=== PATIENT | male | born 1950 | race Caucasian/White ===

== ENCOUNTER → 2020-06-19 09:27 | Outpatient (BNVA) | payer MEDICARE, SELFPAY | PROVIDERS: PCP Internal Medicine; Visit Provider Internal Medicine | DX: I48.19 Other persistent atrial fibrillation (principal); Z51.81 Encounter for therapeutic drug level monitoring; Z79.01 Long term (current) use of anticoagulants | CPT/HCPCS: 85610 ==

== ENCOUNTER 2020-07-03 08:51 | Outpatient (REF) | payer MEDICARE, SELFPAY ==
--- NOTE | 2020-07-03 09:04 | US_ITS ---
EXAMINATION: US RETROPERITONEAL LIMITED (AORTA) CLINICAL INFORMATION: AAA. COMPARISON: None TECHNIQUE: Serrano-scale, color Doppler and spectral Doppler evaluation of the abdominal aorta. FINDINGS: The aorta is normal. The measurements of the aorta in maximum AP and transverse dimensions respectively are as follows: Proximal: 2.8 x 2.7 cm. Mid: 2.1 x 2.5 cm. Distal: 2.0 x 2.9 cm. PSV: 61.1 cm/sec The measurements of the common iliac arteries in maximum dimensions are as follows: Right: AP: 1.0 cm. TRV: 1.2 cm. Left: AP: 0.7 cm. TRV: 0.8 cm. US/US abdominal aortic aneurysm IMPRESSION: No AAA seen..
[2020-07-03 11:38] LABS: Hemoglobin 15.6 g/dl (14.0-18.0); Imm Gran Abs Auto 0.03 X10*3/uL (0.00-0.03); Imm Gran Pct Auto 0.4 % (0.0-0.4); Lymphocytes Absolute Auto 1.2 X10*3/uL (1.2-4.9); Mean Corpuscular Hemoglobin 29.8 pg (27.0-33.0); Red Cell Distribution Width 13.9 % (11.0-16.0)
[2020-07-03 11:40] LABS: Basophils Percent Auto 0.4 % (0-2); Eosinophils Absolute Auto 0.2 X10*3/uL (0.0-0.4); Hematocrit 48.2 % (42-52); Lymphocytes Percent Auto 14.7 % (20-40); Mean Corpuscular HGB Conc 32.4 g/dl (31.0-36.0); Mean Platelet Volume 11.9 fL (9.4-12.4); Monocytes Absolute Auto 0.9 X10*3/uL (0.1-1.2); Monocytes Percent Auto 10.9 % (2-11); Neutrophils Absolute Auto 5.7 X10*3/uL (2.0-8.3); Neutrophils Percent Auto 71.6 % (45-73); Red Blood Count 5.24 X10*6/uL (4.60-5.80)
[2020-07-03 11:52] LABS: Alanine Aminotransferase 16 U/L (0-40); Albumin Level 3.8 g/dL (3.5-5.0); Alkaline Phosphatase 91 U/L (39-117); Anion Gap 12 (12-20); Aspartate Amino Transferase 17 U/L (5-37); Bilirubin Total 0.7 mg/dL (0.0-1.0); Blood Urea Nitrogen 15 mg/dL (9-16); Calcium 8.3 mg/dL (8.4-10.2); Carbon Dioxide 27 mmol/L (22-29); Chloride 105 mmol/L (96-108); Estimated Glomerular Filt Rate > 60; Glucose Random 90 mg/dL (60-115); Potassium 4.3 mmol/l (3.3-5.1); Sodium 140 mmol/L (135-145); Total Protein 6.8 g/dL (6.5-8.0)
[2020-07-03 12:03] LABS: MANUAL DIFF FLAG NO
[2020-07-03 12:04] LABS: Platelet Count 107 X10*3/uL (160-400)
[2020-07-03 12:20] LABS: Vitamin B12 714 pg/mL (200-900)
== END 2020-07-03 08:52 | disposition home or self-care (01) ==
LOC: HO.HMGCX 08:51
PROVIDERS: PCP Internal Medicine; Visit Provider Internal Medicine
DX: I10 Essential (primary) hypertension (principal); R41.3 Other amnesia; R97.20 Elevated prostate specific antigen [PSA]; Z12.5 Encounter for screening for malignant neoplasm of prostate; Z13.6 Encounter for screening for cardiovascular disorders
CPT/HCPCS: 36415; 76706; 80053; 82607; 84153; 85025

== ENCOUNTER 2020-07-05 12:53 | Outpatient (REF) | payer MEDICARE, SELFPAY ==
--- NOTE | 2020-07-05 13:00 | MR_ITS ---
MRI OF THE BRAIN WITHOUT IV CONTRAST INDICATION: MEMORY LOSS COMPARISON: Brain MRI 07/29/2017. TECHNIQUE: Multiplanar multisequence MR imaging of the brain was obtained without IV contrast. FINDINGS: There is no hydrocephalus, extra-axial surface collection, or herniation. There is global cerebral volume loss and there is moderate chronic microangiopathy, both progressed since the prior exam. The major flow voids at the skull base are preserved. There is no acute infarct on diffusion-weighted imaging. There is no intracranial hemorrhage on the gradient recalled echo acquisition. The midline structures are normal. The cerebellar tonsils are normally positioned. The cerebellum and brainstem are normal. The craniocervical junction is normal. Osseous marrow signal intensity is homogenous. The visualized soft tissues are unremarkable. Partially imaged advanced right-sided hypertrophic facet arthropathy and disc osteophyte at C3-C4 likely resulting in severe right-sided foraminal stenosis at C3-C4. There is sinonasal polyposis with polypoid soft tissue within the left greater than right nasal cavity is contiguous with significant left greater than right ethmoid aeration opacification. There is moderate bursal thickening within the left maxillary sinus is well and mild mucosal thickening within the left frontal sinus. MR/MR head/brain wo con IMPRESSION: - No acute intracranial findings. - There is global cerebral volume loss and there is moderate chronic microangiopathy, both progressed since the prior exam. - Partially imaged advanced right-sided hypertrophic facet arthropathy and disc osteophyte at C3-C4 likely resulting in severe right-sided foraminal stenosis at C3-C4. - Sinonasal polyposis.
== END 2020-07-05 12:54 | disposition home or self-care (01) ==
LOC: HO.MRI 12:53
PROVIDERS: PCP Internal Medicine; Visit Provider Internal Medicine
DX: R41.3 Other amnesia (principal)
CPT/HCPCS: 70551

== ENCOUNTER → 2020-07-10 09:00 | Outpatient (BNVA) | payer MEDICARE, SELFPAY | PROVIDERS: PCP Internal Medicine; Visit Provider Internal Medicine | DX: I48.19 Other persistent atrial fibrillation (principal); Z51.81 Encounter for therapeutic drug level monitoring; Z79.01 Long term (current) use of anticoagulants | CPT/HCPCS: 85610; 99211 ==

== ENCOUNTER → 2020-08-07 09:02 | Outpatient (BNVA) | payer MEDICARE, SELFPAY | PROVIDERS: PCP Internal Medicine; Visit Provider Internal Medicine | DX: I48.19 Other persistent atrial fibrillation (principal); Z51.81 Encounter for therapeutic drug level monitoring; Z79.01 Long term (current) use of anticoagulants | CPT/HCPCS: 85610; 99211 ==

== ENCOUNTER → 2020-09-04 08:54 | Outpatient (BNVA) | payer MEDICARE, SELFPAY | PROVIDERS: PCP Internal Medicine; Visit Provider Internal Medicine | DX: I48.19 Other persistent atrial fibrillation (principal); Z51.81 Encounter for therapeutic drug level monitoring; Z79.01 Long term (current) use of anticoagulants | CPT/HCPCS: 85610; 99211 ==

== ENCOUNTER 2020-10-05 08:43 | Outpatient (REF) | payer MEDICARE, SELFPAY ==
[2020-10-05 09:54] LABS: Mean Corpuscular Volume 92.2 fL (80-98); Red Cell Distribution Width 13.4 % (11.0-16.0)
[2020-10-05 09:55] LABS: Hematocrit 48.5 % (42-52); Hemoglobin 15.7 g/dl (14.0-18.0); Mean Corpuscular HGB Conc 32.4 g/dl (31.0-36.0); Mean Corpuscular Hemoglobin 29.8 pg (27.0-33.0); Red Blood Count 5.26 X10*6/uL (4.60-5.80)
[2020-10-05 10:00] LABS: Platelet Count 91 X10*3/uL (160-400)
[2020-10-05 10:31] LABS: Alanine Aminotransferase 17 U/L (0-40); Albumin Level 3.8 g/dL (3.5-5.0); Alkaline Phosphatase 105 U/L (39-117); Anion Gap 14 (12-20); Aspartate Amino Transferase 17 U/L (5-37); Bilirubin Total 0.8 mg/dL (0.0-1.0); Blood Urea Nitrogen 16 mg/dL (9-16); Calcium 8.9 mg/dL (8.4-10.2); Carbon Dioxide 30 mmol/L (22-29); Chloride 103 mmol/L (96-108); Cholesterol 198 mg/dL; Estimated Glomerular Filt Rate > 60; Glucose Fasting 96 mg/dL (60-99); HDL Cholesterol 47 mg/dL; LDL Cholesterol Calculated 127 mg/dl; Potassium 4.6 mmol/l (3.3-5.1); Sodium 142 mmol/L (135-145); Total Protein 7.1 g/dL (6.5-8.0); Triglycerides 120 mg/dL
== END 2020-10-05 08:44 | disposition home or self-care (01) ==
LOC: HO.LAB 08:43
PROVIDERS: Absent Provider Internal Medicine Cardiovascular Disease; PCP Internal Medicine; Referring Provider Urology; Visit Provider Internal Medicine
DX: R41.3 Other amnesia (principal); I10 Essential (primary) hypertension; I48.0 Paroxysmal atrial fibrillation; R97.20 Elevated prostate specific antigen [PSA]; Z12.5 Encounter for screening for malignant neoplasm of prostate; I48.19 Other persistent atrial fibrillation; Z51.81 Encounter for therapeutic drug level monitoring; Z79.01 Long term (current) use of anticoagulants
CPT/HCPCS: 36415; 80053; 80061; 84153; 85027; 85610; 99211

== ENCOUNTER → 2020-10-18 12:39 | Outpatient (BNVA) | payer MEDICARE, SELFPAY | PROVIDERS: PCP Internal Medicine; Visit Provider Internal Medicine Cardiovascular Disease | DX: I48.0 Paroxysmal atrial fibrillation (principal); E78.5 Hyperlipidemia, unspecified; R41.3 Other amnesia | CPT/HCPCS: 93005; 99212 ==

== ENCOUNTER → 2020-11-02 08:34 | Outpatient (BNVA) | payer MEDICARE, SELFPAY | PROVIDERS: PCP Internal Medicine; Visit Provider Internal Medicine | DX: I48.19 Other persistent atrial fibrillation (principal); Z51.81 Encounter for therapeutic drug level monitoring; Z79.01 Long term (current) use of anticoagulants | CPT/HCPCS: 85610; 99211 ==

== ENCOUNTER → 2020-11-30 09:25 | Outpatient (BNVA) | payer MEDICARE, SELFPAY | PROVIDERS: PCP Internal Medicine; Visit Provider Internal Medicine | DX: I48.19 Other persistent atrial fibrillation (principal); Z51.81 Encounter for therapeutic drug level monitoring; Z79.01 Long term (current) use of anticoagulants | CPT/HCPCS: 85610; 99211 ==

== ENCOUNTER → 2020-12-21 09:42 | Outpatient (BNVA) | payer MEDICARE, SELFPAY | PROVIDERS: PCP Internal Medicine; Visit Provider Internal Medicine | DX: I48.19 Other persistent atrial fibrillation (principal); Z79.01 Long term (current) use of anticoagulants; Z51.81 Encounter for therapeutic drug level monitoring | CPT/HCPCS: 85610; 99211 ==

== ENCOUNTER → 2021-01-17 09:33 | Outpatient (BNVA) | payer MEDICARE, SELFPAY | PROVIDERS: PCP Internal Medicine; Visit Provider Internal Medicine | DX: I48.19 Other persistent atrial fibrillation (principal); Z51.81 Encounter for therapeutic drug level monitoring; Z79.01 Long term (current) use of anticoagulants | CPT/HCPCS: 85610; 99211 ==

== ENCOUNTER 2021-02-15 09:27 | Outpatient (REF) | payer MEDICARE, SELFPAY ==
[2021-02-15 11:04] LABS: MANUAL DIFF FLAG NO
[2021-02-15 11:19] LABS: Basophils Percent Auto 0.4 % (0-2); Eosinophils Absolute Auto 0.2 X10*3/uL (0.0-0.4); Eosinophils Percent Auto 2.1 % (0-4); Hemoglobin 15.9 g/dl (14.0-18.0); Imm Gran Abs Auto 0.02 X10*3/uL (0.00-0.03); Imm Gran Pct Auto 0.3 % (0.0-0.4); Lymphocytes Absolute Auto 1.2 X10*3/uL (1.2-4.9); Mean Corpuscular HGB Conc 32.4 g/dl (31.0-36.0); Mean Corpuscular Hemoglobin 29.9 pg (27.0-33.0); Mean Corpuscular Volume 92.3 fL (80-98); Monocytes Absolute Auto 0.9 X10*3/uL (0.1-1.2); Monocytes Percent Auto 11.6 % (2-11); Neutrophils Absolute Auto 5.6 X10*3/uL (2.0-8.3); Neutrophils Percent Auto 70.6 % (45-73); Red Blood Count 5.31 X10*6/uL (4.60-5.80); Red Cell Distribution Width 14.3 % (11.0-16.0); White Blood Count 7.9 X10*3/uL (4.8-10.8)
[2021-02-15 11:40] LABS: Alanine Aminotransferase 15 U/L (0-40); Albumin Level 3.9 g/dL (3.5-5.0); Alkaline Phosphatase 118 U/L (39-117); Anion Gap 12 (12-20); Aspartate Amino Transferase 18 U/L (5-37); Bilirubin Total 0.7 mg/dL (0.0-1.0); Blood Urea Nitrogen 18 mg/dL (9-16); Calcium 8.8 mg/dL (8.4-10.2); Carbon Dioxide 27 mmol/L (22-29); Chloride 106 mmol/L (96-108); Cholesterol 204 mg/dL; Estimated Glomerular Filt Rate > 60; Glucose Random 86 mg/dL (60-115); HDL Cholesterol 48 mg/dL; LDL Cholesterol Calculated 131 mg/dl; Sodium 141 mmol/L (135-145); Total Protein 6.9 g/dL (6.5-8.0); Triglycerides 129 mg/dL
[2021-02-15 11:44] LABS: Platelet Count 85 X10*3/uL (160-400)
[2021-02-15 12:07] LABS: Prostate Specific Antigen 6.05 ng/mL (<0.05-4.0); TSH reflex Free T4 1.74 uIU/mL (0.32-4.0)
[2021-02-15 12:30] LABS: Vitamin B12 827 pg/mL (200-900)
== END 2021-02-15 09:28 | disposition home or self-care (01) ==
LOC: HO.LAB 09:27
PROVIDERS: PCP Internal Medicine; Visit Provider Internal Medicine
DX: F32.9 Major depressive disorder, single episode, unspecified (principal); G31.84 Mild cognitive impairment of uncertain or unknown etiology; I10 Essential (primary) hypertension; I48.0 Paroxysmal atrial fibrillation; R97.20 Elevated prostate specific antigen [PSA]; Z12.5 Encounter for screening for malignant neoplasm of prostate; I48.19 Other persistent atrial fibrillation; Z51.81 Encounter for therapeutic drug level monitoring; Z79.01 Long term (current) use of anticoagulants
CPT/HCPCS: 36415; 80053; 80061; 82607; 84153; 84443; 85025; 85610; 99211

== ENCOUNTER 2021-03-15 09:14 | Outpatient (REF) | payer MEDICARE, SELFPAY ==
[2021-03-15 10:17] LABS: MANUAL DIFF FLAG NO
[2021-03-15 10:21] LABS: Basophils Percent Auto 0.3 % (0-2); Eosinophils Absolute Auto 0.1 X10*3/uL (0.0-0.4); Eosinophils Percent Auto 1.5 % (0-4); Hematocrit 48.4 % (42-52); Imm Gran Abs Auto 0.04 X10*3/uL (0.00-0.03); Imm Gran Pct Auto 0.4 % (0.0-0.4); Lymphocytes Percent Auto 10.4 % (20-40); Mean Corpuscular HGB Conc 33.1 g/dl (31.0-36.0); Mean Corpuscular Hemoglobin 30.2 pg (27.0-33.0); Mean Corpuscular Volume 91.5 fL (80-98); Monocytes Percent Auto 10.2 % (2-11); Neutrophils Absolute Auto 7.4 X10*3/uL (2.0-8.3); Neutrophils Percent Auto 77.2 % (45-73); Red Blood Count 5.29 X10*6/uL (4.60-5.80); Red Cell Distribution Width 13.7 % (11.0-16.0); White Blood Count 9.6 X10*3/uL (4.8-10.8)
[2021-03-15 10:29] LABS: Platelet Count 64 X10*3/uL (160-400)
== END 2021-03-15 09:15 | disposition home or self-care (01) ==
LOC: HO.LAB 09:14
PROVIDERS: PCP Internal Medicine; Visit Provider Internal Medicine
DX: I48.19 Other persistent atrial fibrillation (principal); R79.89 Other specified abnormal findings of blood chemistry; Z51.81 Encounter for therapeutic drug level monitoring; Z79.01 Long term (current) use of anticoagulants
CPT/HCPCS: 36415; 85025; 85610; 99211

== ENCOUNTER 2021-04-01 09:50 | Outpatient (REF) | payer MEDICARE, SELFPAY ==
--- NOTE | ~2021-04-01 | US_ITS ---
EXAMINATION: US ABDOMEN COMPLETE CLINICAL INFORMATION: Thrombocytopenia. COMPARISON: None TECHNIQUE: Real-time imaging of the abdominal viscera. FINDINGS: PANCREAS: Normal. ABDOMINAL AORTA: The proximal and mid segments are normal in caliber. There is mild atherosclerotic changes distal abdominal aorta. INFERIOR VENA CAVA: Visualized portions are normal. LIVER: The liver is normal in size. The liver contour is normal. Parenchymal echogenicity is normal. There is a focal echogenic area in the left hepatic lobe measuring 1.5 x 1.1 x 1.6 cm with a central echogenic area, question small hemangioma versus focal fatty sparing. No additional lesions seen. There is no intrahepatic biliary duct dilatation seen. GALLBLADDER: Gallbladder wall thickness is 0.2 cm. The gallbladder is physiologically distended without evidence of stones, sludge, polyps, wall thickening or pericholecystic fluid. COMMON BILE DUCT: Normal in caliber measuring 0.48 cm in diameter. RIGHT KIDNEY: Normal. No hydronephrosis. No renal calculi or focal parenchymal lesions. The kidney measures 10.4 cm in maximum dimension. LEFT KIDNEY: There is an anechoic cyst in left kidney with septations and adjacent calcifications in the mid/lower pole measuring 3.4 x 2.4 x 2.7 cm. No hydronephrosis. No renal calculi or focal parenchymal lesions. The kidney measures 10.7 cm in maximum dimension. SPLEEN: Normal. The spleen measures 9.4 cm in maximum dimension. FREE FLUID: None. US/US abdomen complete IMPRESSION: Focal hemangioma versus fatty infiltration left hepatic lobe measuring 1.6 cm. Complex cyst with septation and wall calcifications mid/lower pole left kidney measuring 3.4 cm. Mild atherosclerotic changes distal abdominal aorta with no aneurysmal dilatation.
== END 2021-04-01 09:51 | disposition home or self-care (01) ==
LOC: HO.HMGCX 09:50
PROVIDERS: PCP Internal Medicine; Visit Provider Internal Medicine
DX: D69.6 Thrombocytopenia, unspecified (principal)
CPT/HCPCS: 76700

== ENCOUNTER → 2021-04-12 09:24 | Outpatient (BNVA) | payer MEDICARE, SELFPAY | PROVIDERS: PCP Internal Medicine; Visit Provider Internal Medicine | DX: I48.19 Other persistent atrial fibrillation (principal); Z51.81 Encounter for therapeutic drug level monitoring; Z79.01 Long term (current) use of anticoagulants | CPT/HCPCS: 85610; 99211 ==

== ENCOUNTER → 2021-04-26 09:29 | Outpatient (BNVA) | payer MEDICARE, SELFPAY | PROVIDERS: PCP Internal Medicine; Visit Provider Internal Medicine | DX: I48.19 Other persistent atrial fibrillation (principal); Z51.81 Encounter for therapeutic drug level monitoring; Z79.01 Long term (current) use of anticoagulants | CPT/HCPCS: 85610; 99211 ==

== ENCOUNTER → 2021-04-29 12:32 | Outpatient (BNVA) | payer MEDICARE, SELFPAY | PROVIDERS: PCP Internal Medicine; Referring Provider Internal Medicine; Visit Provider Internal Medicine Cardiovascular Disease | DX: I48.0 Paroxysmal atrial fibrillation (principal); Z79.01 Long term (current) use of anticoagulants; Z79.899 Other long term (current) drug therapy | CPT/HCPCS: 93005; 99212 ==

== ENCOUNTER 2021-05-03 13:39 | Outpatient (REF) | payer MEDICARE, SELFPAY ==
--- NOTE | ~2021-05-03 | XR_ITS ---
EXAMINATION: XR WRIST, RIGHT CLINICAL INFORMATION: Pain right wrist. COMPARISON: None TECHNIQUE: PA, lateral, and oblique views of the right wrist. FINDINGS: There is mild generalized osteopenia. There is no destructive process or erosive change or periostitis. The ulnar variance is neutral. There is no acute or healing fracture or dislocation. There are atherosclerotic calcifications vasculature. No chondrocalcinosis is seen triangular fibrocartilage or carpal ligaments. There is mild narrowing triscaphe joint. XR/XR wrist RT min 3V IMPRESSION: 1. Mild narrowing triscaphe joint. 2. No fracture or destructive process or erosive arthropathy. 3. Atherosclerotic calcifications vasculature.
== END 2021-05-03 13:40 | disposition home or self-care (01) ==
LOC: HO.HMGCX 13:39
PROVIDERS: PCP Internal Medicine; Visit Provider Hospitalist
DX: Z13.89 Encounter for screening for other disorder (principal)
CPT/HCPCS: 73110

== ENCOUNTER 2021-05-20 14:06 | Outpatient (REF) | payer MEDICARE, SELFPAY | END 2021-05-20 14:07 | disposition home or self-care (01) | LOC: HO.LNP 14:06 | PROVIDERS: Visit Provider Hospitalist | DX: Z20.822 Contact with and (suspected) exposure to COVID-19 (principal) | CPT/HCPCS: U0003; U0005 ==

== ENCOUNTER 2021-05-27 12:08 | Emergency (ER) | payer OTHER, SELFPAY ==
[2021-05-27] VITALS (8 sets, daily range): BP systolic 108–182; BP diastolic 67–98; PULSE 74–87; RESP 16–22; TEMP 36.1–36.6; O2SAT 93–98; BMI 26.0
--- NOTE | ~2021-05-27 | XR_ITS ---
EXAMINATION: XR CHEST CLINICAL INFORMATION: SOB, Covid positive. COMPARISON: Chest 02/18/2018 TECHNIQUE: Frontal view of the chest was obtained. FINDINGS: The lungs are well-expanded and clear of acute pneumonic process. There is elevated right hemidiaphragm. The heart size and pulmonary vascularity is normal. No gross bony abnormality seen. XR/XR chest 1V IMPRESSION: No acute cardiopulmonary process seen. There is elevated right hemidiaphragm unchanged to 02/18/2018
--- NOTE | ~2021-05-27 | CT_ITS ---
EXAMINATION: CT HEAD WITHOUT CONTRAST CLINICAL INFORMATION: Increasing confusion COMPARISON: Previous MRI June 2020 TECHNIQUE: Contiguous axial imaging was performed from the skull base to vertex without intravenous administration of contrast. This CT examination was performed using dose optimization techniques as appropriate, variously including the following: *Automated exposure control *Adjustment of mA and/or kV according to patient size (this includes techniques or standardized protocols for targeted exams where dose is matched to indication/reason for exam; i.e. extremities or head) *Use of iterative reconstruction technique DLP: 770 mGy-cm FINDINGS: There is no evidence of an extra-axial collection. There is no evidence of intra-axial or extra-axial hemorrhage. The ventricles and extra-axial CSF spaces are prominent just above generalized atrophy. There is nonspecific periventricular white matter disease. No mass, mass effect or infarct is seen. There is roblero sinusitis. There is a soft tissue mass in the left nasal cavity likely stable previous MRIs may represent a polyp. There are likely postsurgical changes to the medial wall of the left maxillary sinus. The mastoid air cells and middle ears are clear. No skull fracture or bone lesion is seen. CT/CT head/brain wo con IMPRESSION: Generalized atrophy and nonspecific periventricular white matter disease. Pansinusitis similar to previous exams.
--- NOTE | 2021-05-27 12:40 | ECG_ITS ---
Test Reason : SOB Blood Pressure : / mmHG Vent. Rate : 084 BPM Atrial Rate : 084 BPM P-R Int : 168 ms QRS Dur : 076 ms QT Int : 412 ms P-R-T Axes : 055 095 077 degrees QTc Int : 486 ms Sinus rhythm with Premature atrial complexes with Aberrant conduction Rightward axis Septal infarct , age undetermined Abnormal ECG When compared with ECG of 08-JAN-2019 10:41, Premature ventricular complexes are no longer Present Aberrant conduction is now Present Septal infarct is now Present T wave inversion now evident in Anterior leads Referred By: Piper Cobos Electronically Signed By:PIERO SANDERS
[2021-05-27 13:03] LABS: MANUAL DIFF FLAG NO
[2021-05-27 13:06] LABS: Basophils Percent Auto 0.1 % (0-2); Eosinophils Percent Auto 0.3 % (0-4); Hematocrit 45.5 % (42-52); Hemoglobin 15.3 g/dl (14.0-18.0); Imm Gran Abs Auto 0.05 X10*3/uL (0.00-0.03); Imm Gran Pct Auto 0.6 % (0.0-0.4); Lymphocytes Absolute Auto 0.8 X10*3/uL (1.2-4.9); Lymphocytes Percent Auto 9.5 % (20-40); Mean Corpuscular HGB Conc 33.6 g/dl (31.0-36.0); Mean Corpuscular Hemoglobin 29.9 pg (27.0-33.0); Mean Corpuscular Volume 88.9 fL (80-98); Mean Platelet Volume 10.9 fL (9.4-12.4); Monocytes Absolute Auto 0.7 X10*3/uL (0.1-1.2); Monocytes Percent Auto 9.3 % (2-11); Neutrophils Absolute Auto 6.4 X10*3/uL (2.0-8.3); Neutrophils Percent Auto 80.2 % (45-73); Platelet Count 163 X10*3/uL (160-400); Red Blood Count 5.12 X10*6/uL (4.60-5.80); Red Cell Distribution Width 13.6 % (11.0-16.0)
[2021-05-27] MEDS: Albuterol Sulfate 90 MCG 8 GM INHALER 4 PUFF INHALE (13:18)
[2021-05-27] MEDS: 0.9 % Sodium Chloride 500 ML 999 ML IV (13:20)
[2021-05-27 13:28] LABS: B Type Natriuretic Peptide 18 pg/mL (<100); Troponin-I High Sensitivity 8.4 ng/L (<3.5-35.0)
[2021-05-27 13:52] LABS: Prothrombin Time Whole Bld POC 43.5 sec (11.1-13.5); ~PT, ~INR - Anti Coag Clinic 3.6 (0.9-1.1)
[2021-05-27 14:16] LABS: Alanine Aminotransferase 39 U/L (0-40); Albumin Level 2.9 g/dL (3.5-5.0); Alkaline Phosphatase 105 U/L (39-117); Anion Gap 11 (12-20); Aspartate Amino Transferase 45 U/L (5-37); Bilirubin Direct 0.3 mg/dL (0.0-0.5); Bilirubin Total 0.5 mg/dL (0.0-1.0); Blood Urea Nitrogen 12 mg/dL (9-16); Calcium 7.6 mg/dL (8.4-10.2); Carbon Dioxide 27 mmol/L (22-29); Chloride 104 mmol/L (96-108); Creatinine Clr Calc Pharmacy 89.7; Estimated Glomerular Filt Rate > 60; Glucose Random 97 mg/dL (60-115); Lactate Dehydrogenase 228 U/L (118-273); Magnesium 2.4 mg/dL (1.6-2.6); Potassium 3.6 mmol/L (3.3-5.1); Sodium 138 mmol/L (135-145); Total Protein 5.5 g/dL (6.5-8.0)
[2021-05-27 14:24] LABS: Procalcitonin 0.18 ng/mL
[2021-05-27 14:35] LABS: Ferritin 830 ng/mL (20-250)
--- NOTE | 2021-05-27 15:07 | ED_ITS ---
HPI - URI/Sore Throat General Chief Complaint: Upper Respiratory Symptoms Stated Complaint: +COVID, SOB, FULL VACCINE Time Seen by Provider: 05/27/21 12:13 Source: patient and EMS Mode of arrival: EMS History of Present Illness HPI Narrative: 71-year-old male with a past medical history of COPD, depression, HTN, hyperlipidemia, proximal AFib on Coumadin, COVID-19 positive on 05/20/21, presenting to the ED complaining of dry cough, persistent/worsening SOB x1 week, chills, and decreased p.o. intake. reports patient with memory issues, states he has been more lethargic/with myalgias at home. Patient denies CP, abdominal pain, nausea/vomiting, LE edema Related Data Home Medications Medication Instructions Recorded Confirmed fluticasone propionate 50 50 mcg INTRANASAL DAILY 10/05/20 05/27/21 mcg/actuation nasal spray,suspension lorazepam 0.5 mg tablet 0.5 mg PO BEDTIME PRN 10/05/20 05/27/21 tiotropium bromide 18 mcg capsule 1 cap INHALATION DAILY 10/05/20 05/27/21 with inhalation device acetaminophen 500 mg capsule 500 mg PO Q6H PRN 03/19/21 05/27/21 albuterol sulfate 90 mcg/actuation 2 puff INHALATION Q4-6H PRN 03/19/21 05/27/21 aerosol inhaler (Ventolin HFA) docusate sodium 50 mg capsule 50 mg PO DAILY 03/19/21 05/27/21 multivitamin 1 tab PO DAILY 03/19/21 05/27/21 bupropion HCl 150 mg 24 hr tablet, 150 mg PO QAM 04/26/21 05/27/21 extended release donepezil 10 mg tablet 10 mg PO DAILY 04/26/21 05/27/21 memantine 10 mg tablet 10 mg PO BID 04/26/21 05/27/21 Previous Rx's Medication Instructions Recorded warfarin 5 mg tablet 5 mg PO DAILY #90 tab 06/19/20 atorvastatin 10 mg tablet 10 mg PO BEDTIME 90 Days #90 tab 07/02/20 sotalol 80 mg tablet 80 mg PO BID #60 tab 11/27/20 Allergies Allergy/AdvReac Type Severity Reaction Status Date / Time dexamethasone [From Decadron] Allergy Intermediate ITCHING/DELMY Verified 05/20/21 11:50 H paroxetine [From PAXIL] Allergy Unknown UNKNOWN Verified 05/20/21 11:50 venlafaxine [From EFFEXOR] Allergy Unknown UNKNOWN Verified 05/20/21 11:50 decadron Allergy Unknown rash Uncoded 11/25/19 00:00 Review of Systems Review of Systems: Constitutional: No Fever, No Chills, + Fatigue, + Malaise ENT/Mouth:No Ear Pain, + Nasal Congestion, No Sinus Pain, No Hoarseness, No sore throat, + Rhinorrhea Eyes: No Eye Pain, No Swelling, No Redness, No Foreign Body, No Discharge, No Vision Changes Cardiovascular: No Chest Pain, + SOB, No Dyspnea on Exertion, No Orthopnea, No Edema Respiratory: + Cough, No Sputum, No Wheezing, +Dyspnea Gastrointestinal: No Nausea, No Vomiting, No Diarrhea, No Constipation, No Abdominal pain Genitourinary: No Dysuria, No Urinary Frequency, No Hematuria, No Flank Pain Musculoskeletal: No joint pain, No Myalgias, No Joint Swelling Skin: No Skin Lesions, No rash Neuro: No Weakness, No Numbness, No Paresthesias,No Headache Yes all other systems are reviewed and are negative Neurologic: Denies Abnormal speech present PMFSH Past Medical History Attestation statement: The following information was validated with the patient. Medical History COPD (chronic obstructive pulmonary disease) Depression Essential hypertension HLD (hyperlipidemia) Mild cognitive impairment with memory loss Paroxysmal atrial fibrillation Persistent atrial fibrillation Surgical History History of cardiac radiofrequency ablation History of prostate biopsy Family History Family History Father CVD (cardiovascular disease) Mother Cancer Afib Social History Social History Alcohol intake: current Alcohol intake frequency: holidays/special occasions only Alcohol type: other Patient Tobacco Use Status: Former Tobacco user Quit Date: 2007 Cigarette Packs Per Day: 1 Advance Directives: No Advance Directives Information Provided: No Physical Exam Vital Signs: Vital Signs: Last Vital Signs Temp 98 F 05/27/21 15:17 Pulse 74 05/27/21 15:17 Resp 18 05/27/21 15:17 BP 178/98 H 05/27/21 15:17 Pulse Ox 94 05/27/21 15:19 Body Mass Index 26.0 Const: General: cooperative, healthy appearing and no acute distress Limitations: no limitations HENMT: Head: Yes normal to inspection Ears: hearing grossly normal bilaterally General nose exam: Normal external nose present Face and sinus: Yes normal facial exam Eyes: General: appearance normal, both eyes and all related structures EOM: EOMs intact bilaterally Neck: Neck: Yes normal visual inspection Resp: Effort & Inspection: normal respiratory effort Auscultation: clear to auscultation bilaterally, no rales, no rhonchi and no wheezes Cardio: Rate: regular rate Heart sounds: S1 normal heart sound present and S2 normal heart sound present GI: Inspection: Yes normal to inspection Palpation (GI): Soft to palpation, nontender, no guarding and not rigid Skin: Rashes: no rashes Wounds: no wounds Neuro: General: tone normal and moves all extremities Cognition (Neuro): normal cognition Speech: No Abnormal speech present Gait exam (Neuro): Normal gait present Motor exam (neuro): 5/5 motor strength present throughout Extrem: General: Yes normal to inspection, Yes no pedal edema and Yes no calf tenderness Course Course Course Narrative: -1532--no leukocytosis. H&H stable. INR supratherapeutic at 3.6 > INR dose should be held tonight and rechecked tomorrow. > upon further talking to reports she is concerned more about increasing confusion, but does state patient does have baseline confusion/dementia. Will obtain UA and head CT -1600--calcium low at 7.6 > IV repletion ordered -ferritin/CRP elevated, albumin low 2.9, troponin elevated 9.6 > will obtain 3hr repeat XR chest 1V IMPRESSION: No acute cardiopulmonary process seen. There is elevated right hemidiaphragm unchanged to 02/18/2018 >> patient ambulated with pulse oximetry maintaining saturations of greater than 94% on room air 1840--CT head/brain wo con IMPRESSION: Generalized atrophy and nonspecific periventricular white matter disease. Pansinusitis similar to previous exams. -patient's is currently in emergency department with fractured distal radius, has been caring for patient at home, due to patient increasing weakness/ COVID-19/underlying dementia it is unsafe for patient be discharged home with in this new state. Case discussed with case management, patient was spent night in ED pending PT/CM and UA -1800--ED care transferred to [facility] pending UA, PT and case management MDM - URI/Sore Throat MDM Narrative Medical decision making narrative: 71-year-old male with a past medical history of COPD, depression, HTN, hyperlipidemia, proximal AFib on Coumadin, COVID-19 positive on 05/20/21, presenting to the ED complaining of dry cough, persistent/worsening SOB x1 week, chills, and decreased p.o. intake. On exam VSS, NAD/well-appearing, sating 94% on RA, lungs CTA, in no respiratory distress /talking in complete sentences. No pedal edema/calf tenderness. Baseline confusion/poor historian. COVID-19 symptoms vs COVID pneumonia. Low concern for PE as patient is already anticoagulated. Low concern for CHF or COPD exacerbation Plan: EKG, labs, CXR, viewed oral, reassess Medical Records Attestation: I reviewed the patient's medical records. Lab Data Attestation: I reviewed the patient's lab results. Result diagrams: 05/27/21 12:50 05/27/21 13:42 Labs: Lab Results 05/27/21 05/27/21 05/27/21 Range/Units 12:50 12:50 12:50 WBC 8.0 (4.8-10.8) X10*3/uL RBC 5.12 (4.60-5.80) X10*6/uL Hgb 15.3 (14.0-18.0) g/dl Hct 45.5 (42-52) % MCV 88.9 (80-98) fL MCH 29.9 (27.0-33.0) pg MCHC 33.6 (31.0-36.0) g/dl RDW 13.6 (11.0-16.0) % Plt Count 163 D (160-400) X10*3/uL MPV 10.9 (9.4-12.4) fL Immature Gran % (Auto) 0.6 H (0.0-0.4) % Neut % (Auto) 80.2 H (45-73) % Lymph % (Auto) 9.5 L (20-40) % [place] % (Auto) 9.3 (2-11) % Eos % (Auto) 0.3 (0-4) % Baso % (Auto) 0.1 (0-2) % Lymph # (Auto) 0.8 L (1.2-4.9) X10*3/uL Charlotte # (Auto) 0.7 (0.1-1.2) X10*3/uL Eos # (Auto) 0.0 (0.0-0.4) X10*3/uL Baso # (Auto) 0.0 (0.0-0.2) X10*3/uL Abs Immat Gran (auto) 0.05 H (0.00-0.03) X10*3/uL Absolute Neuts (auto) 6.4 (2.0-8.3) X10*3/uL Absolute Nucleated RBC 0.000 (0.0-0.012) X10*3/uL Nucleated RBC % (auto) 0.0 (0.0-0.2) /100WBC Whole Blood PT (11.1-13.5) sec Whole Blood INR (0.9-1.1) Sodium (135-145) mmol/L Potassium (3.3-5.1) mmol/L Chloride (96-108) mmol/L Carbon Dioxide (22-29) mmol/L Anion Gap (12-20) BUN (9-16) mg/dL Creatinine (0.5-1.4) mg/dL Estim Creat Clear Calc Estimated GFR Random Glucose (60-115) mg/dL Calcium (8.4-10.2) mg/dL Magnesium (1.6-2.6) mg/dL Ferritin (20-250) ng/mL Total Bilirubin (0.0-1.0) mg/dL Direct Bilirubin (0.0-0.5) mg/dL AST (5-37) U/L ALT (0-40) U/L Alkaline Phosphatase (39-117) U/L Lactate Dehydrogenase (118-273) U/L Troponin I High Sens 8.4 (<3.5-35.0) ng/L C-Reactive Protein (< or = 0.50) mg/dL B-Natriuretic Peptide 18 (<100) pg/mL Total Protein (6.5-8.0) g/dL Albumin (3.5-5.0) g/dL Procalcitonin 0.18 ng/mL 05/27/21 05/27/21 05/27/21 Range/Units 13:42 13:42 13:45 WBC (4.8-10.8) X10*3/uL RBC (4.60-5.80) X10*6/uL Hgb (14.0-18.0) g/dl Hct (42-52) % MCV (80-98) fL MCH (27.0-33.0) pg MCHC (31.0-36.0) g/dl RDW (11.0-16.0) % Plt Count (160-400) X10*3/uL MPV (9.4-12.4) fL Immature Gran % (Auto) (0.0-0.4) % Neut % (Auto) (45-73) % Lymph % (Auto) (20-40) % Charlotte % (Auto) (2-11) % Eos % (Auto) (0-4) % Baso % (Auto) (0-2) % Lymph # (Auto) (1.2-4.9) X10*3/uL Charlotte # (Auto) (0.1-1.2) X10*3/uL Eos # (Auto) (0.0-0.4) X10*3/uL Baso # (Auto) (0.0-0.2) X10*3/uL Abs Immat Gran (auto) (0.00-0.03) X10*3/uL Absolute Neuts (auto) (2.0-8.3) X10*3/uL Absolute Nucleated RBC (0.0-0.012) X10*3/uL Nucleated RBC % (auto) (0.0-0.2) /100WBC Whole Blood PT 43.5 H (11.1-13.5) sec Whole Blood INR 3.6 H (0.9-1.1) Sodium 138 (135-145) mmol/L Potassium 3.6 (3.3-5.1) mmol/L Chloride 104 (96-108) mmol/L Carbon Dioxide 27 (22-29) mmol/L Anion Gap 11 L (12-20) BUN 12 (9-16) mg/dL Creatinine 0.73 (0.5-1.4) mg/dL Estim Creat Clear Calc 89.7 Estimated GFR > 60 Random Glucose 97 (60-115) mg/dL Calcium 7.6 L D (8.4-10.2) mg/dL Magnesium 2.4 (1.6-2.6) mg/dL Ferritin 830 H Cancelled (20-250) ng/mL Total Bilirubin 0.5 (0.0-1.0) mg/dL Direct Bilirubin 0.3 (0.0-0.5) mg/dL AST 45 H D (5-37) U/L ALT 39 (0-40) U/L Alkaline Phosphatase 105 (39-117) U/L Lactate Dehydrogenase 228 Cancelled (118-273) U/L Troponin I High Sens (<3.5-35.0) ng/L C-Reactive Protein 12.70 H Cancelled (< or = 0.50) mg/dL B-Natriuretic Peptide (<100) pg/mL Total Protein 5.5 L D (6.5-8.0) g/dL Albumin 2.9 L D (3.5-5.0) g/dL Procalcitonin ng/mL 05/27/21 Range/Units 15:27 WBC (4.8-10.8) X10*3/uL RBC (4.60-5.80) X10*6/uL Hgb (14.0-18.0) g/dl Hct (42-52) % MCV (80-98) fL MCH (27.0-33.0) pg MCHC (31.0-36.0) g/dl RDW (11.0-16.0) % Plt Count (160-400) X10*3/uL MPV (9.4-12.4) fL Immature Gran % (Auto) (0.0-0.4) % Neut % (Auto) (45-73) % Lymph % (Auto) (20-40) % Charlotte % (Auto) (2-11) % Eos % (Auto) (0-4) % Baso % (Auto) (0-2) % Lymph # (Auto) (1.2-4.9) X10*3/uL Charlotte # (Auto) (0.1-1.2) X10*3/uL Eos # (Auto) (0.0-0.4) X10*3/uL Baso # (Auto) (0.0-0.2) X10*3/uL Abs Immat Gran (auto) (0.00-0.03) X10*3/uL Absolute Neuts (auto) (2.0-8.3) X10*3/uL Absolute Nucleated RBC (0.0-0.012) X10*3/uL Nucleated RBC % (auto) (0.0-0.2) /100WBC Whole Blood PT (11.1-13.5) sec Whole Blood INR (0.9-1.1) Sodium (135-145) mmol/L Potassium (3.3-5.1) mmol/L Chloride (96-108) mmol/L Carbon Dioxide (22-29) mmol/L Anion Gap (12-20) BUN (9-16) mg/dL Creatinine (0.5-1.4) mg/dL Estim Creat Clear Calc Estimated GFR Random Glucose (60-115) mg/dL Calcium (8.4-10.2) mg/dL Magnesium (1.6-2.6) mg/dL Ferritin (20-250) ng/mL Total Bilirubin (0.0-1.0) mg/dL Direct Bilirubin (0.0-0.5) mg/dL AST (5-37) U/L ALT (0-40) U/L Alkaline Phosphatase (39-117) U/L Lactate Dehydrogenase (118-273) U/L Troponin I High Sens 9.6 (<3.5-35.0) ng/L C-Reactive Protein (< or = 0.50) mg/dL B-Natriuretic Peptide (<100) pg/mL Total Protein (6.5-8.0) g/dL Albumin (3.5-5.0) g/dL Procalcitonin ng/mL Discharge Plan Discharge Clinical Impression: COVID-19 Prescriptions: No [facility] atorvastatin 10 mg tablet 10 mg PO BEDTIME 90 Days Qty: 90 RF: 3 sotalol 80 mg tablet 80 mg PO BID Qty: 60 RF: 5 multivitamin Tablet 1 tab PO DAILY RF: 0 docusate sodium 50 mg Capsule 50 mg PO DAILY RF: 0 albuterol sulfate [Ventolin HFA] 90 mcg/actuation Hfa Aerosol Inhaler 2 puff INHALATION Q4-6H PRN (Reason: Wheezing) RF: 0 acetaminophen [Tylenol Extra Strength] 500 mg Capsule 500 mg PO Q6H PRN (Reason: Pain) RF: 0 warfarin 5 mg tablet 5 mg PO DAILY Qty: 90 RF: 0 lorazepam 0.5 mg tablet 0.5 mg PO BEDTIME PRN (Reason: Anxiety) RF: 0 fluticasone propionate 50 mcg/actuation spray,suspension 50 mcg intranasal DAILY RF: 0 Spiriva with HandiHaler 18 mcg capsule, w/inhalation device 1 cap inhalation DAILY RF: 0 memantine 10 mg tablet 10 mg PO BID RF: 0 bupropion HCl 150 mg tablet extended release 24 hr 150 mg PO QAM RF: 0 donepezil 10 mg tablet 10 mg PO DAILY RF: 0
[2021-05-27 15:51] LABS: Troponin-I High Sensitivity 9.6 ng/L (<3.5-35.0)
[2021-05-27] MEDS: Calcium Gluconate/NaCl,Iso-Osm 1 GM/50 ML PLAST..BAG IV (16:16)
--- NOTE | 2021-05-27 18:15 | PHA.MEDREC ---
Pharmacy Consult ? Medication Reconciliation Pharmacy has completed the medication reconciliation. Spoke with his [id number] who confirmed all of the medications. He had been taking mucinex and azithromycin recently for COVID but finished his regimen.
--- NOTE | 2021-05-27 20:43 | PC.NURSE ---
Patient A+Oxself. Hx dementia. COVID positive. Labs drawn and sent IV placed and flushed. Meds given per MAR. at bedside for update and then left to go home. Patient able to ambulate as supervision. Continent. Resting safely.
[2021-05-27 21:05] LABS: Troponin-I High Sensitivity 10.6 ng/L (<3.5-35.0)
--- NOTE | 2021-05-27 22:28 | MHC.CM.ED ---
CM met with pt. Pt A&Ox3. Pt fully vaccinated with [employer]. Pt with positive covid on 05/20/21. Pt with weakness and cough at home. Pt denies using any DME or using any services. Pt states he has been weak, but able to care for himself at home, ambulate stairs and use bathroom. Pt aware that he is concerned about caring for him, as she fx her wrist today and has had Covid for past 14 days herself. Pt is willing to have PT evaluation, but denies any difficulty with ambulation. Pt is refusing to go to any STR facility. No referrals placed. CM will follow for d/c needs.
[2021-05-28 04:48] VITALS: BP 140/79; PULSE 89; RESP 21; TEMP 36.6; O2SAT 97
--- NOTE | 2021-05-28 06:49 | PC.NURSE ---
pt sleeping during the course of the evening. no sign of respiratory distress. Pt awaiting for bed assignment.
[2021-05-28 07:41] VITALS: BP 140/79; PULSE 89; O2SAT 95
[2021-05-28 08:11] VITALS: PULSE 88; RESP 16; O2SAT 95
--- NOTE | 2021-05-28 08:32 | PC.NURSE ---
pt alert and oriented, vss. pt denies sob/headache/dizziness. no chest pain. wet cough noted, no sputum. pt seen by physical therapy this morning. Pt was on 2L O2 n/c prior to being seen by physical therapy, pt taken off O2 by PT after eval. pt currently satting 95-96% R/A. no apparent distress noted. pt resting quietly, breakfast given. will continue to monitor.
--- NOTE | 2021-05-28 09:15 | PC.NURSE ---
pt cleared by physical therapy for discharge home. pt to be transferred via ambulance
[2021-05-28] MEDS: Docusate Sodium 100 MG/10 ML LIQUID 50 MG PO (09:27)
[2021-05-28 09:29] VITALS: BP 182/95; PULSE 106
[2021-05-28] MEDS: Sotalol HCL 80 MG TABLET PO (09:29)
[2021-05-28] MEDS: Memantine HCl 10 MG TABLET PO (09:30)
[2021-05-28] MEDS: Donepezil HCl 10 MG TABLET PO (09:30)
[2021-05-28] MEDS: buPROPion HCl XL 150 MG TAB.ER.24H PO (09:30)
[2021-05-28] MEDS: Multivitamin TABLET 1 TAB PO (09:30)
--- NOTE | 2021-05-28 09:46 | MHC.CM.ED ---
Patient remains in ER. Physical therapy eval completed. Home therapy is recommended. Spoek with patient's , Sarita via telephone at [phone]. Sarita is agreeable to patient returning home with [facility]. Referral made to [facility]. [facility] booked for 10am. [facility] with chart. Patient, Jason Stein RN and Piper GIRARD aware. Continue to monitor for d/c needs.
== END 2021-05-28 10:24 | disposition home or self-care (01) ==
PROVIDERS: Physician Assistant; Emergency Provider Emergency Medicine Emergency Medical Services; PCP Internal Medicine
DX: U07.1 COVID-19 (principal); F33.1 Major depressive disorder, recurrent, moderate; I48.91 Unspecified atrial fibrillation; R06.02 Shortness of breath; Z87.891 Personal history of nicotine dependence; Z79.01 Long term (current) use of anticoagulants; Z79.899 Other long term (current) drug therapy
CPT/HCPCS: 36415; 70450; 71045; 80048; 80076; 82728; 83615; 83735; 83880; 84145; 84484; 85025; 85610; 86140; 93005; 96365; 97162; 99285; J0610

== ENCOUNTER → 2021-05-31 16:12 | Outpatient (BNVA) | payer MEDICARE, SELFPAY | PROVIDERS: PCP Internal Medicine; Visit Provider Internal Medicine | DX: I48.19 Other persistent atrial fibrillation (principal); Z51.81 Encounter for therapeutic drug level monitoring; Z79.01 Long term (current) use of anticoagulants | CPT/HCPCS: Q3014 ==

== ENCOUNTER → 2021-06-03 12:20 | Outpatient (BNVA) | payer MEDICARE, SELFPAY | PROVIDERS: PCP Internal Medicine; Visit Provider Internal Medicine | DX: I48.19 Other persistent atrial fibrillation (principal); Z51.81 Encounter for therapeutic drug level monitoring; Z79.01 Long term (current) use of anticoagulants | CPT/HCPCS: Q3014 ==

== ENCOUNTER → 2021-06-06 13:42 | Outpatient (BNVA) | payer MEDICARE, SELFPAY | PROVIDERS: PCP Internal Medicine; Visit Provider Internal Medicine | DX: I48.19 Other persistent atrial fibrillation (principal) | CPT/HCPCS: Q3014 ==

== ENCOUNTER → 2021-06-12 10:55 | Outpatient (BNVA) | payer MEDICARE, SELFPAY | PROVIDERS: PCP Internal Medicine; Visit Provider Internal Medicine ==

== ENCOUNTER → 2021-06-19 11:24 | Outpatient (BNVA) | payer MEDICARE, SELFPAY | PROVIDERS: PCP Internal Medicine; Visit Provider Internal Medicine | DX: I48.19 Other persistent atrial fibrillation (principal) | CPT/HCPCS: Q3014 ==

== ENCOUNTER → 2021-06-26 14:01 | Outpatient (BNVA) | payer MEDICARE, SELFPAY | PROVIDERS: PCP Internal Medicine; Visit Provider Internal Medicine | DX: I48.19 Other persistent atrial fibrillation (principal) | CPT/HCPCS: Q3014 ==

== ENCOUNTER → 2021-07-03 13:37 | Outpatient (BNVA) | payer MEDICARE, SELFPAY | PROVIDERS: PCP Internal Medicine; Visit Provider Internal Medicine | DX: I48.19 Other persistent atrial fibrillation (principal) | CPT/HCPCS: Q3014 ==

== ENCOUNTER → 2021-07-09 11:23 | Outpatient (BNVA) | payer MEDICARE, SELFPAY | PROVIDERS: PCP Internal Medicine; Visit Provider Internal Medicine | DX: I48.19 Other persistent atrial fibrillation (principal); Z51.81 Encounter for therapeutic drug level monitoring; Z79.01 Long term (current) use of anticoagulants | CPT/HCPCS: 85610; 99211 ==

== ENCOUNTER → 2021-07-19 09:57 | Outpatient (BNVA) | payer MEDICARE, SELFPAY | PROVIDERS: PCP Internal Medicine; Visit Provider Internal Medicine | DX: I48.19 Other persistent atrial fibrillation (principal); Z51.81 Encounter for therapeutic drug level monitoring; Z79.01 Long term (current) use of anticoagulants | CPT/HCPCS: 85610; 99211 ==

== ENCOUNTER → 2021-07-24 10:49 | Outpatient (BNVA) | payer MEDICARE, SELFPAY | PROVIDERS: PCP Internal Medicine; Referring Provider Internal Medicine; Visit Provider Surgery | DX: K64.4 Residual hemorrhoidal skin tags (principal); L98.8 Other specified disorders of the skin and subcutaneous tissue; I10 Essential (primary) hypertension; I48.0 Paroxysmal atrial fibrillation; I48.19 Other persistent atrial fibrillation; E78.5 Hyperlipidemia, unspecified; J44.9 Chronic obstructive pulmonary disease, unspecified; F06.8 Other specified mental disorders due to known physiological condition; Z86.16 Personal history of COVID-19; Z87.891 Personal history of nicotine dependence; Z82.49 Family history of ischemic heart disease and other diseases of the circulatory system; Z88.8 Allergy status to other drugs, medicaments and biological substances; Z79.01 Long term (current) use of anticoagulants; Z79.899 Other long term (current) drug therapy | CPT/HCPCS: 99202 ==

== ENCOUNTER → 2021-08-05 09:46 | Outpatient (BNVA) | payer MEDICARE, SELFPAY | PROVIDERS: PCP Internal Medicine; Visit Provider Internal Medicine | DX: I48.19 Other persistent atrial fibrillation (principal); Z51.81 Encounter for therapeutic drug level monitoring; Z79.01 Long term (current) use of anticoagulants | CPT/HCPCS: 85610; 99211 ==

== ENCOUNTER 2021-08-20 05:55 | Day surgery (SDC) | payer MEDICARE, SELFPAY ==
[2021-08-14 15:13] VITALS: BMI 29.6
--- NOTE | 2021-08-19 11:01 | HO.ANESPROP2 ---
Documented by User: Peg Ramos NP 08/19/21 11:06 HPI - Anesthesia Eval Consult details Narrative: 71yo M for EUA, Hemorrhoidectomy Cardiac optimized at intermed risk Coumadin for afib (lovenox bridge) PMFSH Active Problems Active Problems: All Active Problems (Updated 08/14/21 @ 15:23 by Hazel Pete, RN) Current use of anticoagulant therapy (Acute) Memory loss (Acute) Thrombocytopenia (Acute) Right wrist pain (Acute) Bronchitis (Acute) COVID-19 (Acute) External hemorrhoids with complication (Acute) Paroxysmal atrial fibrillation (Acute) HLD (hyperlipidemia) (Acute) Past Medical History Medical History Cognitive dysfunction COPD (chronic obstructive pulmonary disease) Depression Essential hypertension External hemorrhoids with complication HLD (hyperlipidemia) Mild cognitive impairment with memory loss Paroxysmal atrial fibrillation Persistent atrial fibrillation Family History Family History Father CVD (cardiovascular disease) Mother Cancer Afib Surgical History Surgical History History of cardiac radiofrequency ablation History of prostate biopsy Hx of colonoscopy Hx of cystoscopy Social History Social History Are you a primary clinical care coordinator to a significant other at home: No Alcohol intake: current Alcohol intake frequency: does not drink Alcohol type: other Patient Tobacco Use Status: Former Tobacco user Quit Date: 2007 Tobacco use type: Cigarette Cigarette Packs Per Day: 1 Use of substances other than those prescribed or required for medical reasons: No Are you DNR?: No Advance Directives: No Advance Directives Information Provided: No Advance Directives on File: No Meds Allergies Allergy/AdvReac Type Severity Reaction Status Date / Time dexamethasone [From Decadron] Allergy Intermediate ITCHING/DELMY Verified 08/14/21 15:13 H paroxetine [From PAXIL] Allergy Unknown UNKNOWN Verified 08/14/21 15:13 venlafaxine [From EFFEXOR] Allergy Unknown UNKNOWN Verified 08/14/21 15:13 decadron Allergy Unknown rash Uncoded 08/14/21 15:13 Home Medications Medication Instructions Recorded Confirmed Last Taken Type lorazepam 0.5 mg tablet 0.5 mg PO BEDTIME PRN 10/05/20 08/14/21 05/26/21 History acetaminophen 500 mg capsule 500 mg PO Q6H PRN 03/19/21 08/14/21 Unknown History albuterol sulfate 90 mcg/actuation 2 puff INHALATION Q4-6H PRN 03/19/21 08/14/21 Unknown History aerosol inhaler (Ventolin HFA) docusate sodium 50 mg capsule 50 mg PO DAILY 03/19/21 08/14/21 Unknown History multivitamin 1 tab PO DAILY 03/19/21 08/14/21 05/27/21 History bupropion HCl 150 mg 24 hr tablet, 150 mg PO QAM 04/26/21 08/14/21 08/20/21 History extended release donepezil 10 mg tablet 10 mg PO DAILY@1700 04/26/21 08/14/21 05/27/21 History memantine 10 mg tablet 10 mg PO BID 04/26/21 08/14/21 08/20/21 History enoxaparin 80 mg/0.8 mL mg SUBCUT 08/14/21 08/19/21 History subcutaneous syringe tiotropium bromide 18 mcg capsule 1 cap INHALATION DAILY 08/14/21 08/14/21 08/20/21 History with inhalation device (Spiriva with HandiHaler) Exam Exam Date and Time: August 19, 2021 1101 Height,Weight and Vital Signs: Height 5 ft 5 in Weight 80.739 kg Pertinent Lab Results Pertinent Lab Results: Laboratory Tests 05/27/21 05/27/21 12:50 13:42 WBC 8.0 Hgb 15.3 Hct 45.5 Plt Count 163 D Sodium 138 Potassium 3.6 Chloride 104 Carbon Dioxide 27 BUN 12 Creatinine 0.73 Narrative Narrative: EKG 05/2021 (changes reviewed by cardiol and pt cleared) Vent. Rate : 084 BPM ? ? Atrial Rate : 084 BPM ?? P-R Int : 168 ms? QRS Dur : 076 ms ? ? QT Int : 412 ms ? ? ? P-R-T Axes : 055 095 077 degrees ?? QTc Int : 486 ms ? Sinus rhythm with Premature atrial complexes with Aberrant conduction Rightward axis Septal infarct , age undetermined Abnormal ECG When compared with ECG of 08-JAN-2019 10:41, Premature ventricular complexes are no longer Present Aberrant conduction is now Present Septal infarct is now Present T wave inversion now evident in Anterior leads Assessment and Plan Assessment Anesthesia Assessment: Chart Reviewed Documented by User: Evette Campos MD 08/20/21 08:06 [facility] Past Medical History Medical History Cognitive dysfunction COPD (chronic obstructive pulmonary disease) Depression Essential hypertension External hemorrhoids with complication HLD (hyperlipidemia) Mild cognitive impairment with memory loss Paroxysmal atrial fibrillation Persistent atrial fibrillation Family History Family History Father CVD (cardiovascular disease) Mother Cancer Afib Family history of problems with anesthesia: No Surgical History Surgical History History of cardiac radiofrequency ablation History of prostate biopsy Hx of colonoscopy Hx of cystoscopy History of Problems with Anesthesia: No Social History Social History Are you a primary clinical care coordinator to a significant other at home: No Alcohol intake: current Alcohol intake frequency: does not drink Alcohol type: other Patient Tobacco Use Status: Former Tobacco user Quit Date: 2007 Tobacco use type: Cigarette Cigarette Packs Per Day: 1 Use of substances other than those prescribed or required for medical reasons: No Are you DNR?: No Advance Directives: No Advance Directives Information Provided: No Advance Directives on File: No Meds Allergies Allergy/AdvReac Type Severity Reaction Status Date / Time dexamethasone [From Decadron] Allergy Intermediate ITCHING/DELMY Verified 08/14/21 15:13 H paroxetine [From PAXIL] Allergy Unknown UNKNOWN Verified 08/14/21 15:13 venlafaxine [From EFFEXOR] Allergy Unknown UNKNOWN Verified 08/14/21 15:13 decadron Allergy Unknown rash Uncoded 08/14/21 15:13 Home Medications Medication Instructions Recorded Confirmed Last Taken Type lorazepam 0.5 mg tablet 0.5 mg PO BEDTIME PRN 10/05/20 08/14/21 05/26/21 History acetaminophen 500 mg capsule 500 mg PO Q6H PRN 03/19/21 08/14/21 Unknown History albuterol sulfate 90 mcg/actuation 2 puff INHALATION Q4-6H PRN 03/19/21 08/14/21 Unknown History aerosol inhaler (Ventolin HFA) docusate sodium 50 mg capsule 50 mg PO DAILY 03/19/21 08/14/21 Unknown History multivitamin 1 tab PO DAILY 03/19/21 08/14/21 05/27/21 History bupropion HCl 150 mg 24 hr tablet, 150 mg PO QAM 04/26/21 08/14/21 08/20/21 History extended release donepezil 10 mg tablet 10 mg PO DAILY@1700 04/26/21 08/14/21 05/27/21 History memantine 10 mg tablet 10 mg PO BID 04/26/21 08/14/21 08/20/21 History enoxaparin 80 mg/0.8 mL mg SUBCUT 08/14/21 08/19/21 History subcutaneous syringe tiotropium bromide 18 mcg capsule 1 cap INHALATION DAILY 08/14/21 08/14/21 08/20/21 History with inhalation device (Spiriva with HandiHaler) Exam Height,Weight and Vital Signs: Height 5 ft 5 in Weight 80.739 kg Vital Signs Temp Pulse Resp BP Pulse Ox 08/20/21 06:27 97.9 F 74 16 140/89 H 96 Pertinent Lab Results Pertinent Lab Results: Laboratory Tests 05/27/21 05/27/21 12:50 13:42 WBC 8.0 Hgb 15.3 Hct 45.5 Plt Count 163 D Sodium 138 Potassium 3.6 Chloride 104 Carbon Dioxide 27 BUN 12 Creatinine 0.73 Lab Results 08/20/21 Range/Units 06:28 PT 11.2 (9.9-13.0) SEC INR 1.0 (0.9-1.1) Airway Mallampati Class: III (Overbite) TM Dist: >3cm Neck ROM: Full Loose/Missing/Broken Teeth: Yes (Front top ridged) Heart: RRR Lungs: CTAB Assessment and Plan Assessment Anesthesia Assessment: Anesthesia Plan Discussed Final Anesthetic Review Family History of Problems with Anesthesia: No History of Problems with Anesthesia: No NPO: Yes ASA Class: III Final Preanesthetic Review: No Changes in Pt Med Stat, Meds/Allgs Chart Reviewed, Consent Obtained/Reviewed and Anes Risks/Benef Reviewed Patient Risk: Intermediate Procedure Risk: Low Assessment/Block/Sedation in SS: Assess/Block/Sedation-SS Anesthetic Plan Anesthetic Plan: GA Disposition: Standard PACU
[2021-08-20] VITALS (7 sets, daily range): BP systolic 113–140; BP diastolic 71–89; PULSE 65–74; RESP 16; TEMP 36.2–36.6; O2SAT 94–98
[2021-08-20] MEDS: Lactated Ringers 1,000 ML 50 ML IVCONT (06:41)
[2021-08-20 06:48] LABS: Prothrombin Time 11.2 SEC (9.9-13.0)
--- NOTE | 2021-08-20 07:24 | MHC.SHP ---
Pre-Procedural Eval Section A Date of Service: 08/20/21 The History & Physical has been completed within 30 days and I have reviewed it.: Yes Section B Chief Complaint: External hemorrhoids with complication Allergies: Allergies Allergy/AdvReac Type Severity Reaction Status Date / Time dexamethasone [From Decadron] Allergy Intermediate ITCHING/DELMY Verified 08/14/21 15:13 H paroxetine [From PAXIL] Allergy Unknown UNKNOWN Verified 08/14/21 15:13 venlafaxine [From EFFEXOR] Allergy Unknown UNKNOWN Verified 08/14/21 15:13 decadron Allergy Unknown rash Uncoded 08/14/21 15:13 Plan I have reviewed the history and physical and performed a pertinent physical examination on my patient. No changes have occurred unless specified.
--- NOTE | 2021-08-20 08:17 | W.PM.OPN ---
Operative Note Operative Note Date of Service: 08/20/21 Narrative: Preop diagnosis: bleeding hemorrhoids Postop diagnosis: Internal and external hemorrhoids, with bleeding Procedure: Exam under anesthesia hemorrhoidectomy x2 columns Surgeon: Noah David MD The patient is a 71-year-old male who was had frequent bleeding with hemorrhoids along with discomfort and swelling. He is also on anticoagulant therapy for paroxysmal atrial fibrillation. He wanted to proceed with hemorrhoidectomy. He understood the technique of the procedure as well as the risks, benefits, and alternatives. His was actually involved with the discussion and had given formal consent on behalf of the patient The patient was brought to the operating room placed in prone cecily-knife position under general anesthesia via endotracheal tube. The buttocks were retracted with wide tape laterally. The perianal area was prepped and draped in the usual sterile fashion. A surgical time-out was done. The patient received Cefotan 2 g IV preoperatively. The perianal area was infiltrated with lidocaine 1%. Examination of the anal orifice revealed bulky hemorrhoidal columns on the left and right side with note of some all thrombosis on the right external hemorrhoidal column. I inserted Bell Schrader retractor and examined the anal canal circumferentially. Again these hemorrhoidal columns, on the left and right side, mix of internal external were noted. These appeared bulky. There were no other lesions. There was no fissure. I applied a Ruvalcaba retractor at the hemorrhoidal column on the left side to retract this. I made a pshqki-yb-mjeut stitch at the pedicle proximal to the dentate line using chromic 3-0. I made an incision around this hemorrhoidal column to the perianal skin using blade 15. I excised this hemorrhoidal column above the plane of the sphincters along this incision although the pedicle. I closed the incision with a running chromic 3-0 stitch with additional hemostatic sutures being placed . I then proceeded to do the hemorrhoidectomy on the contralateral side. I applied a Ruvalcaba retractor again on the large hemorrhoidal column on the right side. I applied a figure-eight stitch at the pedicle. I made an incision around this with the perianal skin using blade 15. I excised this hemorrhoidal column above the plane of sphincters using scissors. I closed this incision with a running chromic 3-0 stitch. Additional hemostatic [id number]-[id number] sutures were placed . Once hemostasis was ensured I proceeded to then position a rolled Gelfoam into the anal canal for additional hemostasis I infiltrated the perianal area with Marcaine 0.5% for postop analgesia. The procedure was then completed The patient tolerated procedure well. There were no complication noted. Initial and final counts of sponges and instruments were correct. Estimated blood loss was about 10 cc . The patient was extubated without difficulty and transferred to the recovery room with stable vital signs.
[2021-08-20] MEDS: oxyCODONE HCl Immed Release 5 MG TABLET PO (08:49)
== END 2021-08-20 10:05 | disposition home or self-care (01) ==
PROVIDERS: Nurse Practitioner; PCP Internal Medicine; Visit Provider Surgery
PROC: (CPT 46260; principal; 2021-08-20 07:30)
DX: K64.8 Other hemorrhoids (principal); K64.4 Residual hemorrhoidal skin tags; I48.0 Paroxysmal atrial fibrillation; Z79.01 Long term (current) use of anticoagulants; J44.9 Chronic obstructive pulmonary disease, unspecified; I10 Essential (primary) hypertension; F32.9 Major depressive disorder, single episode, unspecified; U09.9 Post COVID-19 condition, unspecified; F06.8 Other specified mental disorders due to known physiological condition; Z79.51 Long term (current) use of inhaled steroids; Z79.899 Other long term (current) drug therapy; Z66 Do not resuscitate; Z88.8 Allergy status to other drugs, medicaments and biological substances; Z87.891 Personal history of nicotine dependence
CPT/HCPCS: 46260; 36415; 85610; 88304; J2250; J2370; J2405; J3010

== ENCOUNTER → 2021-08-23 10:28 | Outpatient (BNVA) | payer MEDICARE, SELFPAY | PROVIDERS: PCP Internal Medicine; Visit Provider Internal Medicine | DX: I48.19 Other persistent atrial fibrillation (principal); Z51.81 Encounter for therapeutic drug level monitoring; Z79.01 Long term (current) use of anticoagulants | CPT/HCPCS: 85610; 99211 ==

== ENCOUNTER → 2021-08-28 10:44 | Outpatient (BNVA) | payer MEDICARE, SELFPAY | PROVIDERS: PCP Internal Medicine; Visit Provider Internal Medicine | DX: I48.19 Other persistent atrial fibrillation (principal); Z48.815 Encounter for surgical aftercare following surgery on the digestive system; Z79.899 Other long term (current) drug therapy; Z87.891 Personal history of nicotine dependence; Z87.19 Personal history of other diseases of the digestive system; Z51.81 Encounter for therapeutic drug level monitoring; Z79.01 Long term (current) use of anticoagulants | CPT/HCPCS: 85610; 99211; 99212 ==

== ENCOUNTER → 2021-09-12 10:25 | Outpatient (BNVA) | payer MEDICARE, SELFPAY | PROVIDERS: PCP Internal Medicine; Visit Provider Internal Medicine | DX: I48.19 Other persistent atrial fibrillation (principal); Z51.81 Encounter for therapeutic drug level monitoring; Z79.01 Long term (current) use of anticoagulants | CPT/HCPCS: 85610; 99211 ==

== ENCOUNTER → 2021-10-02 12:54 | Outpatient (REF) | payer MEDICARE, SELFPAY ==
--- NOTE | 2021-10-02 12:59 | CA_ITS ---
Transthoracic Echocardiogram Patient (Last, First, Middle): Satya Back L Gender: Male Date of : 1950 Age: 71 Procedure Date: 10/02/2021 Procedure Type: Transthoracic Echocardiogram Location: OP Height: 172.72 cm Weight: 79.83 kg BSA: 1.94 m2 Heart Rate: bpm BP: 115 / 82 mmHg Law Office Receptionist: OPAL Referring MD: Gavin Randle MD Library Manager: Gavin Randle MD Symptoms: I48.0 - Paroxysmal atrial fibrillation Study Quality: Fair ECG Rhythm: Sinus Conclusions: - 1. Normal LV systolic function with grade 1 diastolic dysfunction 2. Normal cardiac valvular Doppler 3. Normal RV systolic pressure 4. No pericardial effusion Findings Left Ventricle Normal left ventricular size, thickness, and systolic function. The visually estimated ejection fraction is between 60-65%. Spectral Doppler is indicative of an impaired relaxation filling pattern. E/E prime ratio is <8, consistent with normal filling pressures. Evidence suggests grade I (mild) diastolic dysfunction. Right Ventricle Normal right ventricular cavity size and systolic function. Atria The left atrium is likely dilated. There is no evidence of interatrial shunt. The right atrium is normal in size. Aortic Valve There is mild calcification of the aortic valve. There is mild thickening of the aortic valve. There is no aortic valve stenosis. There is no aortic valve regurgitation. Mitral Valve There is mild anterior and posterior mitral leaflet thickening. There is trace mitral valve regurgitation. There is no mitral valve stenosis. Pulmonic Valve The pulmonic valve was not well visualized. Tricuspid Valve Likely normal tricuspid valve structure and function. There is mild tricuspid valve regurgitation. The right ventricular systolic pressure is normal. The right ventricular systolic pressure is 25 mmHg. Normal right atrial pressure. There is no evidence of pulmonary hypertension. Great Vessels All visible segments of the aorta are normal in size. The pulmonary artery was not well visualized. Venous The inferior vena cava is normal in size and collapses greater than 50% with inspiration. Pericardium/Pleural There is no evidence of pericardial effusion. Prior Study Comparison No significant change compared to prior study dated: 12/06/2018. Measurements 2D Linear Measurements IVSd: 1.07 0.6-0.9/0.6-1.0 cm LVIDd: 4.22 3.9-5.3/4.2-5.9 cm LVIDd Index: 2.18 2.4-3.2/2.2-3.1 cm/m2 LVIDs: 2.58 2.0-3.6 cm LVPWd: 0.95 0.7-1.1 cm Ao Root: 3.40 2.1-3.5 cm LA Diam: 3.50 2.7-3.8/3.0-4.0 cm LAIDs Index: 1.80 1.5-2.3 cm/m2 LV Mass: 175.02 67-162/88-224 g LV Mass Index: 90.22 43-95/49-115 g/m2 LVOT Diam: 2.10 3.0+(-)1.3 cm 2D Systolic Function EF 4C: 66.40 >55% EF 2C: 60.60 >55% EF BiP: 63.70 >55% Mitral Valve MV Pk E: 0.76 MV PK A: 0.79 MV Decel Time: 216.00 E/A: 1.00 E'Lateral: 9.25 E'Medial: 6.53 E/E' Med: 11.60 E/E' Lat: 8.20 PHT: 63.00 MVA PHT: 3.49 Decel [place]: 3.51 Aortic Valve AoV Pk Adryan: 1.26 AoV Mn Adryan: 0.88 AoV VTI: 0.27 AoV Pk Grad: 6.00 Aov Mn Grad: 3.00 QUITA Cont.VTI: 2.21 LVOT LVOT Pk Adryan: 0.73 LVOT Mn Adryan: 0.50 LVOT VTI: 0.17 LVOT Pk Grad: 2.00 LVOT Mn Grad: 1.00 LVOT Diam: 2.10 LVOT Area: 3.46 Diastolic Function MV Pk E: 0.76 MV Pk A: 0.79 E/A: 1.00 E'Medial: 6.53 E/E' Med: 11.60 E' Laterial: 9.25 E/E' Lat: 8.20 Right Ventricle TAPSE (mm): 23.60 TVS' Adryan: 14.90 Tricuspid Valve TR Pk Adryan: 2.32 TR Pk Grad: 22.00 RA Press: 3.00 RVSP: 25.00 Great Vessels Aorta Ao Root-2D: 3.40 2.0-3.7 cm Ao Asc: 3.10 2.1-3.4 cm Ao Arch: 2.70 Updated in Other Vendor System with Status of Final Gavin Randle MD electronically signed on 10/03/2021 4:56:32 PM with status of Final
== END ==
LOC: HO.CARD 12:54
PROVIDERS: Visit Provider Internal Medicine Cardiovascular Disease
DX: I48.0 Paroxysmal atrial fibrillation (principal); Z51.81 Encounter for therapeutic drug level monitoring; Z79.01 Long term (current) use of anticoagulants
CPT/HCPCS: 85610; 93306; 99211

== ENCOUNTER → 2021-10-16 11:01 | Outpatient (BNVA) | payer MEDICARE, SELFPAY | PROVIDERS: PCP Internal Medicine; Visit Provider Internal Medicine | DX: I48.19 Other persistent atrial fibrillation (principal); Z51.81 Encounter for therapeutic drug level monitoring; Z79.01 Long term (current) use of anticoagulants | CPT/HCPCS: 85610; 99211 ==

== ENCOUNTER → 2021-10-29 13:14 | Outpatient (BNVA) | payer MEDICARE, SELFPAY | PROVIDERS: PCP Internal Medicine; Visit Provider Internal Medicine | DX: I48.19 Other persistent atrial fibrillation (principal); Z79.899 Other long term (current) drug therapy; I48.0 Paroxysmal atrial fibrillation; Z51.81 Encounter for therapeutic drug level monitoring; Z79.01 Long term (current) use of anticoagulants | CPT/HCPCS: 85610; 93005; 99211; 99212 ==

== ENCOUNTER → 2021-11-12 11:20 | Outpatient (BNVA) | payer MEDICARE, SELFPAY | PROVIDERS: PCP Internal Medicine; Visit Provider Internal Medicine | DX: I48.19 Other persistent atrial fibrillation (principal); Z51.81 Encounter for therapeutic drug level monitoring; Z79.01 Long term (current) use of anticoagulants | CPT/HCPCS: 85610; 99211 ==

== ENCOUNTER → 2021-11-26 10:04 | Outpatient (BNVA) | payer MEDICARE, SELFPAY | PROVIDERS: PCP Internal Medicine; Visit Provider Internal Medicine | DX: I48.19 Other persistent atrial fibrillation (principal); Z51.81 Encounter for therapeutic drug level monitoring; Z79.01 Long term (current) use of anticoagulants | CPT/HCPCS: 85610; 99211 ==

== ENCOUNTER → 2021-12-09 13:25 | Outpatient (BNVA) | payer MEDICARE, SELFPAY | PROVIDERS: PCP Internal Medicine; Visit Provider Internal Medicine | DX: I48.19 Other persistent atrial fibrillation (principal); Z51.81 Encounter for therapeutic drug level monitoring; Z79.01 Long term (current) use of anticoagulants | CPT/HCPCS: 85610; 99211 ==

== ENCOUNTER → 2021-12-24 13:12 | Outpatient (BNVA) | payer MEDICARE, SELFPAY | PROVIDERS: PCP Internal Medicine; Visit Provider Internal Medicine | DX: I48.19 Other persistent atrial fibrillation (principal); Z79.01 Long term (current) use of anticoagulants; Z51.81 Encounter for therapeutic drug level monitoring | CPT/HCPCS: 85610; 99211 ==

== ENCOUNTER → 2022-01-14 10:54 | Outpatient (BNVA) | payer MEDICARE, SELFPAY | PROVIDERS: PCP Internal Medicine; Visit Provider Internal Medicine | DX: I48.19 Other persistent atrial fibrillation (principal); Z79.01 Long term (current) use of anticoagulants; Z51.81 Encounter for therapeutic drug level monitoring | CPT/HCPCS: 85610; 99211 ==

== ENCOUNTER 2022-01-15 08:59 | Outpatient (REF) | payer MEDICARE, SELFPAY ==
[2022-01-15 11:40] LABS: MANUAL DIFF FLAG NO
[2022-01-15 11:49] LABS: Basophils Percent Auto 0.4 % (0-2); Eosinophils Absolute Auto 0.2 X10*3/uL (0.0-0.4); Eosinophils Percent Auto 1.5 % (0-4); Hematocrit 48.5 % (42.0-52.0); Hemoglobin 15.7 g/dl (14.0-18.0); Imm Gran Abs Auto 0.05 X10*3/uL (0.00-0.03); Imm Gran Pct Auto 0.5 % (0.0-0.4); Lymphocytes Absolute Auto 1.5 X10*3/uL (1.2-4.9); Lymphocytes Percent Auto 14.6 % (20-40); Mean Corpuscular HGB Conc 32.4 g/dl (31.0-36.0); Mean Corpuscular Hemoglobin 29.4 pg (27.0-33.0); Mean Corpuscular Volume 90.8 fL (80.0-98.0); Mean Platelet Volume 12.7 fL (9.4-12.4); Monocytes Percent Auto 10.1 % (2-11); Neutrophils Absolute Auto 7.5 x10*3/uL (2.0-8.3); Neutrophils Percent Auto 72.9 % (45-73); Red Blood Count 5.34 X10*6/uL (4.60-5.80); White Blood Count 10.3 X10*3/uL (4.8-10.8)
[2022-01-15 11:51] LABS: Platelet Count 69 X10*3/uL (160-400)
[2022-01-15 11:58] LABS: Appearance Urine HAZY; Color Urine YELLOW; Glucose Urine UA NEG (NEG); Leukocyte Esterase Urine NEG (NEG); Nitrite Urine NEG (NEG); Specific Gravity - Urine 1.025 (1.005-1.025); UACC Culture Trigger NO; Urine Blood TRACE (NEG); Urine Ketones NEG (NEG); Urine Protein NEG (NEG-TRACE)
[2022-01-15 12:11] LABS: Alanine Aminotransferase 17 U/L (0-40); Albumin Level 3.7 g/dL (3.5-5.0); Alkaline Phosphatase 113 U/L (39-117); Anion Gap 12 (12-20); Aspartate Amino Transferase 19 U/L (5-37); Bilirubin Total 0.6 mg/dL (0.0-1.0); Blood Urea Nitrogen 19 mg/dL (9-16); Calcium 9.2 mg/dL (8.4-10.2); Carbon Dioxide 26 mmol/L (22-29); Chloride 108 mmol/L (96-108); Cholesterol 191 mg/dL; Estimated Glomerular Filt Rate > 60; Glucose Random 96 mg/dL (60-115); HDL Cholesterol 46 mg/dL; LDL Cholesterol Calculated 123 mg/dl; Sodium 142 mmol/L (135-145); Total Protein 7.2 g/dL (6.5-8.0); Triglycerides 114 mg/dL
[2022-01-15 12:37] LABS: Prostate Specific Antigen 6.52 ng/mL (<0.05-4.0)
[2022-01-15 12:47] LABS: Mucus Urine 2+ /LPF; WBC Urine 0-2 /HPF (0-4)
== END 2022-01-15 09:00 | disposition home or self-care (01) ==
LOC: HO.HMGCLDS 08:59
PROVIDERS: PCP Internal Medicine; Visit Provider Internal Medicine
DX: Z12.5 Encounter for screening for malignant neoplasm of prostate (principal); I48.0 Paroxysmal atrial fibrillation; G31.84 Mild cognitive impairment of uncertain or unknown etiology; R97.20 Elevated prostate specific antigen [PSA]; R53.81 Other malaise; R53.83 Other fatigue; R35.1 Nocturia; J44.9 Chronic obstructive pulmonary disease, unspecified; E78.00 Pure hypercholesterolemia, unspecified
CPT/HCPCS: 36415; 80053; 80061; 81001; 81003; 84153; 84443; 85025

== ENCOUNTER → 2022-01-24 10:44 | Outpatient (BNVA) | payer MEDICARE, SELFPAY | PROVIDERS: PCP Internal Medicine; Visit Provider Urology | DX: C61 Malignant neoplasm of prostate (principal) | CPT/HCPCS: 51798; 99212 ==

== ENCOUNTER → 2022-01-28 10:29 | Outpatient (BNVA) | payer MEDICARE, SELFPAY | PROVIDERS: PCP Internal Medicine; Visit Provider Internal Medicine | DX: I48.19 Other persistent atrial fibrillation (principal); Z79.01 Long term (current) use of anticoagulants; Z51.81 Encounter for therapeutic drug level monitoring | CPT/HCPCS: 85610; 99211 ==

== ENCOUNTER → 2022-02-11 10:17 | Outpatient (BNVA) | payer MEDICARE, SELFPAY | PROVIDERS: PCP Internal Medicine; Visit Provider Internal Medicine | DX: I48.19 Other persistent atrial fibrillation (principal); Z79.01 Long term (current) use of anticoagulants; Z51.81 Encounter for therapeutic drug level monitoring | CPT/HCPCS: 85610; 99211 ==

== ENCOUNTER → 2022-03-04 10:20 | Outpatient (BNVA) | payer MEDICARE, SELFPAY | PROVIDERS: PCP Internal Medicine; Visit Provider Internal Medicine | DX: I48.19 Other persistent atrial fibrillation (principal); Z79.01 Long term (current) use of anticoagulants; Z51.81 Encounter for therapeutic drug level monitoring | CPT/HCPCS: 85610; 99211 ==

== ENCOUNTER → 2022-03-18 10:24 | Outpatient (BNVA) | payer MEDICARE, SELFPAY | PROVIDERS: PCP Internal Medicine; Visit Provider Internal Medicine | DX: I48.19 Other persistent atrial fibrillation (principal); Z51.81 Encounter for therapeutic drug level monitoring; Z79.01 Long term (current) use of anticoagulants | CPT/HCPCS: 85610; 99211 ==

== ENCOUNTER → 2022-04-01 10:24 | Outpatient (BNVA) | payer MEDICARE, SELFPAY | PROVIDERS: PCP Internal Medicine; Visit Provider Internal Medicine | DX: I48.19 Other persistent atrial fibrillation (principal); Z79.01 Long term (current) use of anticoagulants; Z51.81 Encounter for therapeutic drug level monitoring | CPT/HCPCS: 85610; 99211 ==

== ENCOUNTER → 2022-04-22 10:57 | Outpatient (BNVA) | payer MEDICARE, SELFPAY | PROVIDERS: PCP Internal Medicine; Visit Provider Internal Medicine | DX: I48.19 Other persistent atrial fibrillation (principal); Z79.01 Long term (current) use of anticoagulants; Z51.81 Encounter for therapeutic drug level monitoring | CPT/HCPCS: 85610; 99211 ==

== ENCOUNTER → 2022-05-15 10:24 | Outpatient (BNVA) | payer MEDICARE, SELFPAY | PROVIDERS: PCP Internal Medicine; Visit Provider Internal Medicine | DX: I48.19 Other persistent atrial fibrillation (principal); Z51.81 Encounter for therapeutic drug level monitoring; Z79.01 Long term (current) use of anticoagulants | CPT/HCPCS: 85610; 99211 ==

== ENCOUNTER → 2022-05-28 13:34 | Outpatient (BNVA) | payer MEDICARE, SELFPAY | PROVIDERS: PCP Internal Medicine; Referring Provider Internal Medicine; Visit Provider Internal Medicine Cardiovascular Disease | DX: I48.0 Paroxysmal atrial fibrillation (principal); E78.5 Hyperlipidemia, unspecified; Z79.01 Long term (current) use of anticoagulants; Z79.899 Other long term (current) drug therapy | CPT/HCPCS: 93005; 99212 ==

== ENCOUNTER → 2022-06-12 10:20 | Outpatient (BNVA) | payer MEDICARE, SELFPAY | PROVIDERS: PCP Internal Medicine; Visit Provider Internal Medicine | DX: I48.19 Other persistent atrial fibrillation (principal); Z79.01 Long term (current) use of anticoagulants; Z51.81 Encounter for therapeutic drug level monitoring | CPT/HCPCS: 85610; 99211 ==

== ENCOUNTER 2022-07-08 10:13 | Outpatient (REF) | payer MEDICARE, SELFPAY ==
[2022-07-08 10:39] LABS: MANUAL DIFF FLAG NO
[2022-07-08 11:07] LABS: Basophils Percent Auto 0.4 % (0-2); Eosinophils Absolute Auto 0.2 X10*3/uL (0.0-0.4); Eosinophils Percent Auto 1.8 % (0-4); Hematocrit 47.3 % (42.0-52.0); Hemoglobin 15.8 g/dl (14.0-18.0); Imm Gran Abs Auto 0.06 X10*3/uL (0.00-0.03); Imm Gran Pct Auto 0.6 % (0.0-0.4); Lymphocytes Absolute Auto 1.4 X10*3/uL (1.2-4.9); Lymphocytes Percent Auto 13.5 % (20-40); Mean Corpuscular HGB Conc 33.4 g/dl (31.0-36.0); Mean Corpuscular Hemoglobin 30.1 pg (27.0-33.0); Mean Corpuscular Volume 90.1 fL (80.0-98.0); Mean Platelet Volume 13.2 fL (9.4-12.4); Monocytes Absolute Auto 1.1 X10*3/uL (0.1-1.2); Monocytes Percent Auto 11.2 % (2-11); Neutrophils Absolute Auto 7.4 x10*3/uL (2.0-8.3); Neutrophils Percent Auto 72.5 % (45-73); Red Blood Count 5.25 X10*6/uL (4.60-5.80); Red Cell Distribution Width 14.1 % (11.0-16.0); White Blood Count 10.1 X10*3/uL (4.8-10.8)
[2022-07-08 11:08] LABS: Platelet Count 58 X10*3/uL (160-400)
[2022-07-08 11:45] LABS: Alanine Aminotransferase 22 U/L (0-40); Albumin Level 3.7 g/dL (3.5-5.0); Alkaline Phosphatase 125 U/L (39-117); Anion Gap 14 (12-20); Aspartate Amino Transferase 21 U/L (5-37); Bilirubin Total 0.6 mg/dL (0.0-1.0); Blood Urea Nitrogen 17 mg/dL (9-16); Calcium 8.7 mg/dL (8.4-10.2); Carbon Dioxide 26 mmol/L (22-29); Chloride 106 mmol/L (96-108); Cholesterol 178 mg/dL; Estimated Glomerular Filt Rate > 60; Glucose Random 95 mg/dL (60-115); HDL Cholesterol 50 mg/dL; LDL Cholesterol Calculated 103 mg/dl; Sodium 142 mmol/L (135-145); Total Protein 6.9 g/dL (6.5-8.0); Triglycerides 129 mg/dL
[2022-07-08 12:05] LABS: Prostate Specific Antigen 4.97 ng/mL (<0.05-4.0); Thyroid Stimulating Hormone 2.38 uIU/mL (0.32-4.0)
== END 2022-07-08 10:14 | disposition home or self-care (01) ==
LOC: HO.LAB 10:13
PROVIDERS: PCP Internal Medicine; Visit Provider Internal Medicine
DX: Z12.5 Encounter for screening for malignant neoplasm of prostate (principal); I48.19 Other persistent atrial fibrillation; C61 Malignant neoplasm of prostate; I10 Essential (primary) hypertension; E78.00 Pure hypercholesterolemia, unspecified; Z51.81 Encounter for therapeutic drug level monitoring; Z79.01 Long term (current) use of anticoagulants
CPT/HCPCS: 36415; 80053; 80061; 84153; 84443; 85025; 85610; 99211

== ENCOUNTER → 2022-07-24 10:38 | Outpatient (BNVA) | payer MEDICARE, SELFPAY | PROVIDERS: PCP Internal Medicine; Visit Provider Urology | DX: C61 Malignant neoplasm of prostate (principal) | CPT/HCPCS: Q3014 ==

== ENCOUNTER → 2022-08-05 10:32 | Outpatient (BNVA) | payer MEDICARE, SELFPAY | PROVIDERS: PCP Internal Medicine; Visit Provider Internal Medicine | DX: I48.19 Other persistent atrial fibrillation (principal); Z79.01 Long term (current) use of anticoagulants; Z51.81 Encounter for therapeutic drug level monitoring | CPT/HCPCS: 85610; 99211 ==

== ENCOUNTER → 2022-09-02 10:26 | Outpatient (BNVA) | payer MEDICARE, SELFPAY | PROVIDERS: PCP Internal Medicine; Visit Provider Internal Medicine | DX: I48.19 Other persistent atrial fibrillation (principal); Z79.01 Long term (current) use of anticoagulants; Z51.81 Encounter for therapeutic drug level monitoring | CPT/HCPCS: 85610; 99211 ==

== ENCOUNTER 2022-09-30 10:02 | Outpatient (REF) | payer MEDICARE, SELFPAY ==
[2022-09-30 11:40] LABS: PSA,Total (Free>4and<10) 2.42 ng/mL (0.00-4.00)
== END 2022-09-30 10:03 | disposition home or self-care (01) ==
LOC: HO.LAB 10:02
PROVIDERS: PCP Internal Medicine; Visit Provider Urology
DX: Z12.5 Encounter for screening for malignant neoplasm of prostate (principal); I48.19 Other persistent atrial fibrillation; C61 Malignant neoplasm of prostate; Z51.81 Encounter for therapeutic drug level monitoring; Z79.01 Long term (current) use of anticoagulants
CPT/HCPCS: 36415; 84153; 85610; 99211

== ENCOUNTER → 2022-10-24 14:51 | Outpatient (BNVA) | payer MEDICARE, SELFPAY | PROVIDERS: PCP Internal Medicine; Visit Provider Urology | DX: C61 Malignant neoplasm of prostate (principal); N40.1 Benign prostatic hyperplasia with lower urinary tract symptoms; N13.8 Other obstructive and reflux uropathy; R33.9 Retention of urine, unspecified; Z79.01 Long term (current) use of anticoagulants; Z79.899 Other long term (current) drug therapy | CPT/HCPCS: Q3014 ==

== ENCOUNTER → 2022-10-28 14:19 | Outpatient (BNVA) | payer MEDICARE, SELFPAY | PROVIDERS: PCP Internal Medicine; Visit Provider Internal Medicine | DX: I48.19 Other persistent atrial fibrillation (principal); Z79.01 Long term (current) use of anticoagulants; Z51.81 Encounter for therapeutic drug level monitoring | CPT/HCPCS: 85610; 99211 ==

== ENCOUNTER → 2022-11-27 12:22 | Outpatient (BNVA) | payer MEDICARE, SELFPAY | PROVIDERS: PCP Internal Medicine; Referring Provider Internal Medicine; Visit Provider Internal Medicine Cardiovascular Disease | DX: I48.19 Other persistent atrial fibrillation (principal); Z79.01 Long term (current) use of anticoagulants; Z51.81 Encounter for therapeutic drug level monitoring | CPT/HCPCS: 85610; 93005; 99211; 99212 ==

== ENCOUNTER 2022-12-17 08:57 | Outpatient (REF) | payer MEDICARE, SELFPAY | END 2022-12-17 08:58 | disposition home or self-care (01) | LOC: HO.SH 08:57 | PROVIDERS: Visit Provider Internal Medicine | DX: H90.3 Sensorineural hearing loss, bilateral (principal) | CPT/HCPCS: 92557; 92567 ==

== ENCOUNTER → 2023-01-01 10:10 | Outpatient (BNVA) | payer MEDICARE, SELFPAY | PROVIDERS: PCP Internal Medicine; Visit Provider Internal Medicine | DX: I48.19 Other persistent atrial fibrillation (principal); Z79.01 Long term (current) use of anticoagulants; Z51.81 Encounter for therapeutic drug level monitoring | CPT/HCPCS: 85610; 99211 ==

== ENCOUNTER 2023-02-05 10:02 | Outpatient (REF) | payer MEDICARE, SELFPAY ==
[2023-02-05 10:19] LABS: MANUAL DIFF FLAG NO
[2023-02-05 11:30] LABS: Basophils Percent Auto 0.5 % (0-2); Eosinophils Absolute Auto 0.1 X10*3/uL (0.0-0.4); Eosinophils Percent Auto 1.5 % (0-4); Hematocrit 48.8 % (42.0-52.0); Hemoglobin 15.7 g/dl (14.0-18.0); Imm Gran Abs Auto 0.04 X10*3/uL (0.00-0.03); Imm Gran Pct Auto 0.5 % (0.0-0.4); Lymphocytes Absolute Auto 1.4 X10*3/uL (1.2-4.9); Lymphocytes Percent Auto 16.1 % (20-40); Mean Corpuscular HGB Conc 32.2 g/dl (31.0-36.0); Mean Corpuscular Hemoglobin 29.3 pg (27.0-33.0); Mean Platelet Volume 13.4 fL (9.4-12.4); Monocytes Absolute Auto 0.8 X10*3/uL (0.1-1.2); Neutrophils Absolute Auto 6.4 x10*3/uL (2.0-8.3); Neutrophils Percent Auto 72.4 % (45-73); Red Blood Count 5.36 X10*6/uL (4.60-5.80); White Blood Count 8.8 X10*3/uL (4.8-10.8)
[2023-02-05 11:31] LABS: Platelet Count 56 X10*3/uL (160-400)
== END 2023-02-05 10:03 | disposition home or self-care (01) ==
LOC: HO.LAB 10:02
PROVIDERS: PCP Internal Medicine; Visit Provider Internal Medicine
DX: D69.6 Thrombocytopenia, unspecified (principal); I48.19 Other persistent atrial fibrillation; Z51.81 Encounter for therapeutic drug level monitoring; Z79.01 Long term (current) use of anticoagulants
CPT/HCPCS: 36415; 85025; 85610; 99211

== ENCOUNTER → 2023-03-04 10:15 | Outpatient (BNVA) | payer MEDICARE, SELFPAY | PROVIDERS: PCP Internal Medicine; Visit Provider Internal Medicine | DX: I48.19 Other persistent atrial fibrillation (principal); Z79.01 Long term (current) use of anticoagulants; Z51.81 Encounter for therapeutic drug level monitoring | CPT/HCPCS: 85610; 99211 ==

== ENCOUNTER 2023-03-31 10:39 | Outpatient (AMB) | payer MEDICARE, SELFPAY ==
[2023-03-31 10:52] LABS: Prothrombin Time Whole Bld POC 32.7 sec (11.1-13.5); ~PT, ~INR - Anti Coag Clinic 2.7 (0.9-1.1)
--- NOTE | 2023-03-31 11:05 | MHC.OFFVISCO ---
Intake Intake Visit Reasons: Anticoagulation Allergies dexamethasone [From Decadron] Allergy (Intermediate, Verified 03/31/23 10:46) ITCHING/RASH paroxetine [From PAXIL] Allergy (Unknown, Verified 03/31/23 10:46) UNKNOWN venlafaxine [From EFFEXOR] Allergy (Unknown, Verified 03/31/23 10:46) UNKNOWN decadron Allergy (Unknown, Uncoded 03/31/23 10:46) rash Medication List - Last Reconciled 03/31/23 by Hazel Ellison RN acetaminophen 500 mg PO Q6H PRN albuterol sulfate 90 mcg/actuation (Ventolin HFA) 2 puffs inhalation Q4-6H PRN albuterol sulfate 90 mcg/actuation 2 puffs inhalation Q4-6H PRN atorvastatin 10 mg PO BEDTIME bupropion HCl 150 mg PO QAM docusate sodium 50 mg PO DAILY PRN donepezil 10 mg PO DAILY@1700 finasteride 5 mg PO DAILY 90 days fluticasone propionate 50 mcg/actuation (Flonase Allergy Relief) 2 sprays intranasal DAILY lorazepam 0.5 mg PO BEDTIME PRN memantine 10 mg PO BID multivitamin 1 tab PO DAILY quetiapine 50 mg PO BEDTIME sotalol 80 mg PO BID tiotropium bromide (Spiriva with HandiHaler) 1 cap inhalation DAILY warfarin 5 mg See Protocol PO DAILY Nursing Note Amb to [facility], accomp by , feeling ok, pt has memory issues, looks tired, sts when questioned that she is not sleeping and its been challenging. Sts she never leaves him alone but went out with her sister for a short period of time and when she returned he was staring out the window and then was yelling at her for leaving him. Sts she is trying to do her best. Sensed that (primary caregiver) needs a break. Discussion surrounding caregiver fatigue and will contact community navigation for resources available Medications and supplements reviewed No changes in health, diet, medications, or supplements Denies any unusual signs and symptoms of bruising, bleeding Denies any new Chest pain, SOB, or clotting INR: 2.7 in therapeutic range Nutritional guidance given: balance greens and reds in diet, be consistent Dose: continue usual dosing;5mg x 3 days and 2.5mg x 4 days F/U INR: booked out 5 weeks Patients verbalizes understanding of instructions given with accurate read back/ teach back of dosing compose note to Community navigation re above Anti-Coag Initial Assessment Social Hx Patient Tobacco Use Status: Former Tobacco user Quit Date: 2007 Tobacco use type: Cigarette Smoking packs per day: 1 alcohol intake: current Alcohol intake frequency: does not drink Coding Level of Care Code Est Patient Level 2 Diagnoses Current use of anticoagulant therapy Z79.01 Time Spent (min) 30 Assessment & Plan Assessment & Plan (1) Current use of anticoagulant therapy: Code(s): Z79.01 - middle or intermediate school principal (current) use of anticoagulants Category: Medical
== END 2023-03-31 11:21 | disposition home or self-care (01) ==
LOC: HO.ACS 10:39
PROVIDERS: PCP Internal Medicine; Visit Provider Internal Medicine
DX: Z79.01 Long term (current) use of anticoagulants (principal)

== ENCOUNTER → 2023-03-31 10:39 | Outpatient (BNVA) | payer MEDICARE, SELFPAY | PROVIDERS: PCP Internal Medicine; Visit Provider Internal Medicine | DX: I48.19 Other persistent atrial fibrillation (principal); Z79.01 Long term (current) use of anticoagulants; Z51.81 Encounter for therapeutic drug level monitoring | CPT/HCPCS: 85610; 99212 ==

== ENCOUNTER 2023-05-05 10:34 | Outpatient (AMB) | payer MEDICARE, SELFPAY ==
[2023-05-05 10:41] LABS: ~PT, ~INR - Anti Coag Clinic 2.2 (0.9-1.1)
--- NOTE | 2023-05-05 10:53 | MHC.OFFVISCO ---
Intake Intake Visit Reasons: Anticoagulation Allergies dexamethasone [From Decadron] Allergy (Intermediate, Verified 05/05/23 10:36) ITCHING/RASH paroxetine [From PAXIL] Allergy (Unknown, Verified 05/05/23 10:36) UNKNOWN venlafaxine [From EFFEXOR] Allergy (Unknown, Verified 05/05/23 10:36) UNKNOWN decadron Allergy (Unknown, Uncoded 05/05/23 10:36) rash Medication List - Last Reconciled 05/05/23 by Daria Dale RN acetaminophen 500 mg PO Q6H PRN albuterol sulfate 90 mcg/actuation (Ventolin HFA) 2 puffs inhalation Q4-6H PRN albuterol sulfate 90 mcg/actuation 2 puffs inhalation Q4-6H PRN atorvastatin 10 mg PO BEDTIME bupropion HCl 150 mg PO QAM docusate sodium 50 mg PO DAILY PRN donepezil 10 mg PO DAILY@1700 finasteride 5 mg PO DAILY 90 days fluticasone propionate 50 mcg/actuation (Flonase Allergy Relief) 2 sprays intranasal DAILY lorazepam 0.5 mg PO BEDTIME PRN memantine 10 mg PO BID multivitamin 1 tab PO DAILY quetiapine 50 mg PO BEDTIME sotalol 80 mg PO BID tiotropium bromide (Spiriva with HandiHaler) 1 cap inhalation DAILY warfarin 5 mg See Protocol PO DAILY Nursing Note INR: 2.2 in therapeutic range Medications and supplements reviewed PT UP WITH FREQUENT URINATION ABOUT 5-6 TIMES LAST NIGHT , UA CUP PROVIDED AND CALL TO PCP REQUESTING AN ORDER FOR A ALTON CATCH UA, LEFT MSG ON URE TRIAGE LINE Denies any signs and symptoms of bleeding or bruising or clotting. Bleeding, bruising, clotting discussed Nutritional guidance given Dose: 5MG X 3 DAYS/ 2.5MG X 4 DAYS F/U INR: 4 Patient verbalizes understanding of instructions given Anti-Coag Initial Assessment Social Hx Patient Tobacco Use Status: Former Tobacco user Quit Date: 2007 Tobacco use type: Cigarette Smoking packs per day: 1 alcohol intake: current Alcohol intake frequency: does not drink Coding Level of Care Code Est Patient Level 1 Diagnoses Current use of anticoagulant therapy Z79.01 Assessment & Plan Assessment & Plan (1) Current use of anticoagulant therapy: Code(s): Z79.01 - nursing home (current) use of anticoagulants Category: Medical
== END 2023-05-05 10:57 | disposition home or self-care (01) ==
LOC: HO.ACS 10:34
PROVIDERS: PCP Internal Medicine; Visit Provider Internal Medicine
DX: Z79.01 Long term (current) use of anticoagulants (principal)

== ENCOUNTER → 2023-05-05 10:34 | Outpatient (BNVA) | payer MEDICARE, SELFPAY | PROVIDERS: PCP Internal Medicine; Visit Provider Internal Medicine | DX: I48.19 Other persistent atrial fibrillation (principal); Z79.01 Long term (current) use of anticoagulants; Z51.81 Encounter for therapeutic drug level monitoring | CPT/HCPCS: 85610; 99211 ==

== ENCOUNTER 2023-05-06 16:35 | Outpatient (REF) | payer MEDICARE, SELFPAY ==
[2023-05-06 16:47] LABS: Appearance Urine Clear; Color Urine Dark Yellow; Glucose Urine UA Negative (Negative); Leukocyte Esterase Urine Negative (Negative); Nitrite Urine Negative (Negative); Urine Blood Negative (Negative); Urine Ketones Negative (Negative); Urine Protein Negative (Neg-Trace)
== END 2023-05-06 16:36 | disposition home or self-care (01) ==
LOC: HO.LNP 16:35
PROVIDERS: Visit Provider Nurse Practitioner Family
DX: R30.0 Dysuria (principal)
CPT/HCPCS: 81003

== ENCOUNTER 2023-05-22 13:28 | Outpatient (REF) | payer MEDICARE, SELFPAY | END 2023-05-22 13:29 | disposition home or self-care (01) | LOC: HO.HMGCLDS 13:28 | PROVIDERS: PCP Internal Medicine; Visit Provider Urology | DX: C61 Malignant neoplasm of prostate (principal); Z12.5 Encounter for screening for malignant neoplasm of prostate | CPT/HCPCS: 36415; 84153 ==

== ENCOUNTER 2023-06-02 10:40 | Outpatient (AMB) | payer MEDICARE, SELFPAY ==
--- NOTE | 2023-06-02 10:45 | MHC.OFFVISCO ---
Intake Intake Visit Reasons: Anticoagulation Allergies dexamethasone [From Decadron] Allergy (Intermediate, Verified 06/02/23 10:41) ITCHING/RASH paroxetine [From PAXIL] Allergy (Unknown, Verified 06/02/23 10:41) UNKNOWN venlafaxine [From EFFEXOR] Allergy (Unknown, Verified 06/02/23 10:41) UNKNOWN decadron Allergy (Unknown, Uncoded 06/02/23 10:41) rash Medication List - Last Reconciled 06/02/23 by Trinidad Cantu RN acetaminophen 500 mg PO Q6H PRN albuterol sulfate 90 mcg/actuation (Ventolin HFA) 2 puffs inhalation Q4-6H PRN albuterol sulfate 90 mcg/actuation 2 puffs inhalation Q4-6H PRN atorvastatin 10 mg PO BEDTIME bupropion HCl 150 mg PO QAM docusate sodium 50 mg PO DAILY PRN donepezil 10 mg PO DAILY@1700 finasteride 5 mg PO DAILY 90 days fluticasone propionate 50 mcg/actuation (Flonase Allergy Relief) 2 sprays intranasal DAILY lorazepam 0.5 mg PO BEDTIME PRN memantine 10 mg PO BID multivitamin 1 tab PO DAILY quetiapine 50 mg PO BEDTIME sotalol 80 mg PO BID tiotropium bromide (Spiriva with HandiHaler) 1 cap inhalation DAILY warfarin 5 mg See Protocol PO DAILY Nursing Note INR: 2.8- in therapeutic range Medications and supplements reviewed- no changes No changes in health, diet, medications, or supplements, Denies any signs and symptoms of bleeding or bruising or clotting. Bleeding, bruising, clotting discussed Nutritional guidance given Dose: 5mg x 3, 2.5mg x 4 F/U INR: 4 weeks Patient verbalizes understanding of instructions given Anti-Coag Initial Assessment Social Hx Patient Tobacco Use Status: Former Tobacco user Quit Date: 2007 Tobacco use type: Cigarette Smoking packs per day: 1 alcohol intake: current Alcohol intake frequency: does not drink Coding Level of Care Code Est Patient Level 1 Diagnoses Current use of anticoagulant therapy Z79.01 Results AMB INR Fingerstick AMB INR Fingerstick 2.8 Last Edit by Trinidad Cantu RN on 06/02/23 10:47 Assessment & Plan Assessment & Plan (1) Current use of anticoagulant therapy: Code(s): Z79.01 - custodial (current) use of anticoagulants Category: Medical
[2023-06-02 10:46] LABS: Prothrombin Time Whole Bld POC 33.5 sec (11.1-13.5); ~PT, ~INR - Anti Coag Clinic 2.8 (0.9-1.1)
== END 2023-06-02 10:51 | disposition home or self-care (01) ==
LOC: HO.ACS 10:40
PROVIDERS: PCP Internal Medicine; Visit Provider Internal Medicine
DX: Z79.01 Long term (current) use of anticoagulants (principal)

== ENCOUNTER → 2023-06-02 10:40 | Outpatient (BNVA) | payer MEDICARE, SELFPAY | PROVIDERS: PCP Internal Medicine; Visit Provider Internal Medicine | DX: I48.19 Other persistent atrial fibrillation (principal); Z79.01 Long term (current) use of anticoagulants; Z51.81 Encounter for therapeutic drug level monitoring | CPT/HCPCS: 85610; 99211 ==

== ENCOUNTER 2023-06-12 10:14 | Outpatient (AMB) | payer MEDICARE, SELFPAY ==
--- NOTE | 2023-06-12 10:19 | MHC.OFFVIS ---
Intake Intake Visit Reasons: 6M PSA/Prostate Cancer(set) Intake Note: Patient is Present for Follow Up PSA Urology Medication: Finasteride, Antibiotic Allergies: None Blood Thinners: Warfarin Pharmacy: [facility] Allergies dexamethasone [From Decadron] Allergy (Intermediate, Verified 06/12/23 10:23) ITCHING/RASH paroxetine [From PAXIL] Allergy (Unknown, Verified 06/12/23 10:23) UNKNOWN venlafaxine [From EFFEXOR] Allergy (Unknown, Verified 06/12/23 10:23) UNKNOWN decadron Allergy (Unknown, Uncoded 06/12/23 10:23) rash Medication List - Last Reconciled 06/12/23 by Reji Fox MD acetaminophen 500 mg PO Q6H PRN albuterol sulfate 90 mcg/actuation (Ventolin HFA) 2 puffs inhalation Q4-6H PRN albuterol sulfate 90 mcg/actuation 2 puffs inhalation Q4-6H PRN atorvastatin 10 mg PO BEDTIME bupropion HCl 150 mg PO QAM docusate sodium 50 mg PO DAILY PRN donepezil 10 mg PO DAILY@1700 finasteride 5 mg PO DAILY 90 days fluticasone propionate 50 mcg/actuation (Flonase Allergy Relief) 2 sprays intranasal DAILY lorazepam 0.5 mg PO BEDTIME PRN memantine 10 mg PO BID multivitamin 1 tab PO DAILY quetiapine 50 mg PO BEDTIME sotalol 80 mg PO BID tiotropium bromide (Spiriva with HandiHaler) 1 cap inhalation DAILY warfarin 5 mg See Protocol PO DAILY HPI HPI Comments History of Present Illness Details Satya is a pleasant male. He is a patient of Dr. Arreola. 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 PSA remains low 2.2, is noting progressive dementia with loss of urinary control Add tamsulosin Prostate cancer - low-grade, low volume Prior biopsy with Jj 6, 1 core 5% PSA range proximally 6-6.5 PSA 01/26 6.5, 07/29 5.0, 09/29 2.4 finasteride, 05/30 2.2 Has previously been happy with active surveillance Current therapy - cyclic 5AR PFSH Medical History Cognitive dysfunction External hemorrhoids with complication Mild cognitive impairment with memory loss Depression Essential hypertension COPD (chronic obstructive pulmonary disease) Paroxysmal atrial fibrillation HLD (hyperlipidemia) Persistent atrial fibrillation Surgical History Hx of cystoscopy Hx of colonoscopy History of prostate biopsy History of cardiac radiofrequency ablation Family History Father CVD (cardiovascular disease) Mother Cancer Afib Social History Are you a primary home care companion to a significant other at home: No Alcohol intake: current Alcohol intake frequency: does not drink Alcohol type: other Patient Tobacco Use Status: Former Tobacco user Quit Date: 2007 Tobacco use type: Cigarette Cigarette Packs Per Day: 1 Review of Systems Const Denies chills and Denies fever(s) Card Reports no additional complaints and Denies syncope Resp Denies cough GI Denies abdominal pain and Denies heartburn Reports as per HPI and Denies change in libido Neuro Denies syncope Psych Denies change in libido Endo Denies change in libido Physical Exam Const General: cooperative, healthy appearing, comfortable and no acute distress Orientation/consciousness: patient oriented x3 HEENT Face and sinus: Yes normal facial exam Mouth: moist mucous membranes Neck Neck: Yes normal visual inspection, Yes full ROM and Yes trachea midline Chest Chest palpation & inspection: normal inspection of the chest Resp Effort & Inspection: normal respiratory effort, able to speak in complete sentences and no respiratory distress GI Inspection: Yes normal to inspection Back/Spine/Pelvis Cervical Spine: normal cervical lordosis Thoracic/Lumbar Spine: thoracic and lumbar spine normal to inspection Skin General skin exam: no rashes or lesions noted Neuro General: patient oriented x3, gait normal, tone normal and moves all extremities Extrem General: Yes normal to inspection and Yes capillary refill normal Assessment & Plan Assessment & Plan (1) Urinary urgency: Code(s): R39.15 - Urgency of urination (2) Prostate cancer: Comment: Low Grade Code(s): C61 - Malignant neoplasm of prostate Plan 2 month follow-up tele Medications: New doxazosin 4 mg PO BEDTIME 30 tabs 1RF 30 days N31.9 - Neuromuscular dysfunction of bladder, unspecified, R39.15 - Urgency of urination Refilled finasteride 5 mg PO DAILY 90 days 90 tabs 1RF C61 - Malignant neoplasm of prostate, N13.8 - Other obstructive and reflux uropathy, N40.1 - Benign prostatic hyperplasia with lower urinary tract symptoms, R33.9 - Retention of urine, unspecified Patient Instructions: Imaging studies, laboratory and physical exam results were discussed and reviewed in detail. No major barriers to patient understanding were identified. An opportunity to ask questions regarding the treatment plan was provided. All questions were answered. The patient expressed understanding and agreement with the above treatment plan. The patient is aware they should contact our office by phone for worsening of their current condition or the appearance of new urologic symptoms. Compliance is encouraged with any medications and followup testing that is ordered. It is a privilege to participate in the urologic care of your patient. If you have any questions or concerns regarding treatment for the above conditions, or other urologic issues, please do not hesitate to contact me. The office telephone contact is [phone]. This note is constructed using voice recognition software. While every effort has been made to ensure accuracy cash applications associate errors may have been included. Yours sincerely, Dr Reji Fox MD, MARIA ALEJANDRA [facility] - Urology Providers of Expert, Compassionate Care for the Genitourinary System Coding Level of Care Code Est Pt Level 4 (38385) Diagnoses Urinary urgency R39.15 Prostate cancer C61
== END 2023-06-12 10:41 | disposition home or self-care (01) ==
PROVIDERS: PCP Internal Medicine; Visit Provider Urology
DX: R39.15 Urgency of urination (principal); C61 Malignant neoplasm of prostate
CPT/HCPCS: 99214

== ENCOUNTER → 2023-06-12 10:14 | Outpatient (BNVA) | payer MEDICARE, SELFPAY | PROVIDERS: Visit Provider Urology | DX: R39.15 Urgency of urination (principal); C61 Malignant neoplasm of prostate | CPT/HCPCS: 99212 ==

== ENCOUNTER 2023-07-02 08:59 | Outpatient (REF) | payer MEDICARE, SELFPAY ==
[2023-07-02 11:46] LABS: MANUAL DIFF FLAG NO
[2023-07-02 11:51] LABS: Basophils Percent Auto 0.4 % (0-2); Eosinophils Absolute Auto 0.1 X10*3/uL (0.0-0.4); Eosinophils Percent Auto 1.2 % (0-4); Hematocrit 44.6 % (42.0-52.0); Hemoglobin 14.8 g/dl (14.0-18.0); Imm Gran Abs Auto 0.07 X10*3/uL (0.00-0.03); Imm Gran Pct Auto 0.7 % (0.0-0.4); Lymphocytes Absolute Auto 1.5 X10*3/uL (1.2-4.9); Lymphocytes Percent Auto 15.4 % (20-40); Mean Corpuscular HGB Conc 33.2 g/dl (31.0-36.0); Mean Corpuscular Hemoglobin 29.6 pg (27.0-33.0); Mean Corpuscular Volume 89.2 fL (80.0-98.0); Mean Platelet Volume 11.7 fL (9.4-12.4); Monocytes Absolute Auto 0.9 X10*3/uL (0.1-1.2); Neutrophils Absolute Auto 7.1 x10*3/uL (2.0-8.3); Neutrophils Percent Auto 73.3 % (45-73); Platelet Count 179 X10*3/uL (160-400); Red Cell Distribution Width 13.6 % (11.0-16.0); White Blood Count 9.7 X10*3/uL (4.8-10.8)
[2023-07-02 11:53] LABS: Appearance Urine Clear; Color Urine Dark Yellow; Glucose Urine UA Negative (Negative); Leukocyte Esterase Urine Trace (Negative); Nitrite Urine Negative (Negative); Specific Gravity - Urine >= 1.030 (1.005-1.025); UMIC TRIGGER UACC YES; Urine Blood Negative (Negative); Urine Ketones Trace mg/dL (Negative); Urine Protein 30 (1+) mg/dL (Neg-Trace)
[2023-07-02 11:58] LABS: Bacteria Urine None Seen (None Seen); Squamous Epithelial Cell Urine 0-2 /HPF (0-2); WBC Urine 0-5 /HPF (0-5)
[2023-07-02 12:05] LABS: Alanine Aminotransferase 20 U/L (0-40); Albumin Level 3.4 g/dL (3.5-5.0); Alkaline Phosphatase 118 U/L (39-117); Anion Gap 12 (12-20); Aspartate Amino Transferase 21 U/L (5-37); Bilirubin Total 0.5 mg/dL (0.0-1.0); Blood Urea Nitrogen 16 mg/dL (9-16); Calcium 8.6 mg/dL (8.4-10.2); Carbon Dioxide 24 mmol/L (22-29); Chloride 110 mmol/L (96-108); Cholesterol 163 mg/dL (<200); Estimated Glomerular Filt Rate > 60; Glucose Random 99 mg/dL (60-115); HDL Cholesterol 44 mg/dL (>40); LDL Cholesterol Calculated 98 mg/dL (<100); Potassium 3.5 mmol/L (3.3-5.1); Sodium 142 mmol/L (135-145); Total Protein 6.8 g/dL (6.5-8.0); Triglycerides 108 mg/dL (<150)
[2023-07-02 12:24] LABS: Thyroid Stimulating Hormone 1.59 uIU/mL (0.32-4.0)
[2023-07-02 12:37] LABS: Vitamin B12 1279 pg/mL (200-900)
== END 2023-07-02 09:00 | disposition home or self-care (01) ==
LOC: HO.HMGCLDS 08:59
PROVIDERS: PCP Internal Medicine; Visit Provider Internal Medicine
DX: I10 Essential (primary) hypertension (principal); R73.01 Impaired fasting glucose; D69.6 Thrombocytopenia, unspecified; E78.00 Pure hypercholesterolemia, unspecified; F03.90 Unspecified dementia, unspecified severity, without behavioral disturbance, psychotic disturbance, mood disturbance, and anxiety; R35.1 Nocturia
CPT/HCPCS: 36415; 80053; 80061; 81001; 82607; 84439; 84443; 85025; 85610; 99211

== ENCOUNTER 2023-07-02 10:36 | Outpatient (AMB) | payer MEDICARE, SELFPAY ==
[2023-07-02 10:50] LABS: Prothrombin Time Whole Bld POC 55.5 sec (11.1-13.5); ~PT, ~INR - Anti Coag Clinic 4.6 (0.9-1.1)
--- NOTE | 2023-07-02 10:56 | MHC.OFFVISCO ---
Intake Intake Visit Reasons: Anticoagulation Allergies dexamethasone [From Decadron] Allergy (Intermediate, Verified 07/02/23 10:40) ITCHING/RASH paroxetine [From PAXIL] Allergy (Unknown, Verified 07/02/23 10:40) UNKNOWN venlafaxine [From EFFEXOR] Allergy (Unknown, Verified 07/02/23 10:40) UNKNOWN decadron Allergy (Unknown, Uncoded 07/02/23 10:40) rash Medication List - Last Reconciled 07/02/23 by Hazel Ellison RN acetaminophen 500 mg PO Q6H PRN albuterol sulfate 90 mcg/actuation (Ventolin HFA) 2 puffs inhalation Q4-6H PRN albuterol sulfate 90 mcg/actuation 2 puffs inhalation Q4-6H PRN atorvastatin 10 mg PO BEDTIME bupropion HCl 150 mg PO QAM docusate sodium 50 mg PO DAILY PRN donepezil 10 mg PO DAILY@1700 doxazosin 4 mg PO BEDTIME 30 days finasteride 5 mg PO DAILY 90 days fluticasone propionate 50 mcg/actuation (Flonase Allergy Relief) 2 sprays intranasal DAILY lorazepam 0.5 mg PO BEDTIME PRN memantine 10 mg PO BID multivitamin 1 tab PO DAILY quetiapine 50 mg PO BEDTIME sotalol 80 mg PO BID tiotropium bromide (Spiriva with HandiHaler) 1 cap inhalation DAILY warfarin 5 mg See Protocol PO DAILY Nursing Note Amb to [facility], accomp by feeling ok Medications and supplements reviewed recent Covid infection (pt and spouse) now day 10, no antivirals sts he really is eating a lot, poor appetite Denies any unusual signs and symptoms of bruising, bleeding Denies any new Chest pain, SOB, or clotting INR: 4.6 above therapeutic range Nutritional guidance given:greens to help lower then balance greens and reds in diet, nutrition drink can act as a green, sts he likes chocolate ensure Dose: no warfarin today and decrease dose tomorrow to 2.5mg then resume usual dosing Thursday;5mg x 3 days and 2.5mg x 4 days F/U INR: Friday 07/06 Patient's verbalizes understanding of instructions given with accurate read back/ teach back of dosing Anti-Coag Initial Assessment Social Hx Patient Tobacco Use Status: Former Tobacco user Quit Date: 2007 Tobacco use type: Cigarette Smoking packs per day: 1 alcohol intake: current Alcohol intake frequency: does not drink Coding Level of Care Code Est Patient Level 1 Diagnoses Current use of anticoagulant therapy Z79.01 Time Spent (min) 20 Assessment & Plan Assessment & Plan (1) Current use of anticoagulant therapy: Code(s): Z79.01 - group home (current) use of anticoagulants Category: Medical
== END 2023-07-02 11:22 | disposition home or self-care (01) ==
LOC: HO.ACS 10:36
PROVIDERS: PCP Internal Medicine; Visit Provider Internal Medicine
DX: Z79.01 Long term (current) use of anticoagulants (principal)

== ENCOUNTER 2023-07-07 10:52 | Outpatient (AMB) | payer MEDICARE, SELFPAY ==
[2023-07-07 11:02] LABS: Prothrombin Time Whole Bld POC 27.8 sec (11.1-13.5); ~PT, ~INR - Anti Coag Clinic 2.3 (0.9-1.1)
--- NOTE | 2023-07-07 11:09 | MHC.OFFVISCO ---
Intake Intake Visit Reasons: Anticoagulation Allergies dexamethasone [From Decadron] Allergy (Intermediate, Verified 07/07/23 10:55) ITCHING/RASH paroxetine [From PAXIL] Allergy (Unknown, Verified 07/07/23 10:55) UNKNOWN venlafaxine [From EFFEXOR] Allergy (Unknown, Verified 07/07/23 10:55) UNKNOWN decadron Allergy (Unknown, Uncoded 07/07/23 10:55) rash Medication List - Last Reconciled 07/07/23 by Daria Dale RN acetaminophen 500 mg PO Q6H PRN albuterol sulfate 90 mcg/actuation (Ventolin HFA) 2 puffs inhalation Q4-6H PRN albuterol sulfate 90 mcg/actuation 2 puffs inhalation Q4-6H PRN atorvastatin 10 mg PO BEDTIME bupropion HCl 150 mg PO QAM docusate sodium 50 mg PO DAILY PRN donepezil 10 mg PO DAILY@1700 doxazosin 4 mg PO BEDTIME 30 days finasteride 5 mg PO DAILY 90 days fluticasone propionate 50 mcg/actuation (Flonase Allergy Relief) 2 sprays intranasal DAILY lorazepam 0.5 mg PO BEDTIME PRN memantine 10 mg PO BID multivitamin 1 tab PO DAILY quetiapine 50 mg PO BEDTIME sotalol 80 mg PO BID tiotropium bromide (Spiriva with HandiHaler) 1 cap inhalation DAILY warfarin 5 mg See Protocol PO DAILY Nursing Note INR: 2.3 in therapeutic range Medications and supplements reviewed S/P COVID 06/24/23 ALMOST BETTER - HAS DECREASED APPETITE, STILL A LITTLE STUFFY BUT BETTER Denies any signs and symptoms of bleeding or bruising or clotting. Bleeding, bruising, clotting discussed Nutritional guidance given - KEEP UP COOKED GREENS WEEKLY, ENSURE COUNTS A HIGH VIT K FOOD Dose: KEEP SAME 5MG MWF/ 2.5MG X 4 DAYS F/U INR: 3 WEEKS Patient verbalizes understanding of instructions given Anti-Coag Initial Assessment Social Hx Patient Tobacco Use Status: Former Tobacco user Quit Date: 2007 Tobacco use type: Cigarette Smoking packs per day: 1 alcohol intake: current Alcohol intake frequency: does not drink Coding Level of Care Code Est Patient Level 1 Diagnoses Current use of anticoagulant therapy Z79.01 Assessment & Plan Assessment & Plan (1) Current use of anticoagulant therapy: Code(s): Z79.01 - [facility]P (current) use of anticoagulants Category: Medical
== END 2023-07-07 11:14 | disposition home or self-care (01) ==
LOC: HO.ACS 10:52
PROVIDERS: PCP Internal Medicine; Visit Provider Internal Medicine
DX: Z79.01 Long term (current) use of anticoagulants (principal)

== ENCOUNTER → 2023-07-07 10:52 | Outpatient (BNVA) | payer MEDICARE, SELFPAY | PROVIDERS: PCP Internal Medicine; Visit Provider Internal Medicine | DX: I48.19 Other persistent atrial fibrillation (principal); Z79.01 Long term (current) use of anticoagulants; Z51.81 Encounter for therapeutic drug level monitoring | CPT/HCPCS: 85610; 99211 ==

== ENCOUNTER 2023-07-28 11:08 | Outpatient (AMB) | payer MEDICARE, SELFPAY ==
[2023-07-28 11:13] LABS: Prothrombin Time Whole Bld POC 32.3 sec (11.1-13.5); ~PT, ~INR - Anti Coag Clinic 2.7 (0.9-1.1)
--- NOTE | 2023-07-28 11:14 | MHC.OFFVISCO ---
Intake Intake Visit Reasons: Anticoagulation Allergies dexamethasone [From Decadron] Allergy (Intermediate, Verified 07/28/23 11:08) ITCHING/RASH paroxetine [From PAXIL] Allergy (Unknown, Verified 07/28/23 11:08) UNKNOWN venlafaxine [From EFFEXOR] Allergy (Unknown, Verified 07/28/23 11:08) UNKNOWN decadron Allergy (Unknown, Uncoded 07/28/23 11:08) rash Medication List - Last Reconciled 07/28/23 by Trinidad Cantu RN acetaminophen 500 mg PO Q6H PRN albuterol sulfate 90 mcg/actuation (Ventolin HFA) 2 puffs inhalation Q4-6H PRN albuterol sulfate 90 mcg/actuation 2 puffs inhalation Q4-6H PRN atorvastatin 10 mg PO BEDTIME bupropion HCl 150 mg PO QAM docusate sodium 50 mg PO DAILY PRN donepezil 10 mg PO DAILY@1700 doxazosin 4 mg PO BEDTIME 30 days finasteride 5 mg PO DAILY 90 days fluticasone propionate 50 mcg/actuation (Flonase Allergy Relief) 2 sprays intranasal DAILY lorazepam 0.5 mg PO BEDTIME PRN memantine 10 mg PO BID multivitamin 1 tab PO DAILY quetiapine 50 mg PO BEDTIME sotalol 80 mg PO BID tiotropium bromide (Spiriva with HandiHaler) 1 cap inhalation DAILY warfarin 5 mg See Protocol PO DAILY Nursing Note INR: 2.7- in therapeutic range of 2-3 Medications and supplements reviewed- recent covid vaccine No changes in health, diet, medications, or supplements, Denies any signs and symptoms of bleeding or bruising or clotting. Bleeding, bruising, clotting discussed Nutritional guidance given Dose: 5mg x 3, 2.5mg x 4 F/U INR: 3 weeks Patient verbalizes understanding of instructions given Anti-Coag Initial Assessment Social Hx Patient Tobacco Use Status: Former Tobacco user Quit Date: 2007 Tobacco use type: Cigarette Smoking packs per day: 1 alcohol intake: current Alcohol intake frequency: does not drink Coding Level of Care Code Est Patient Level 1
== END 2023-07-28 12:02 | disposition home or self-care (01) ==
LOC: HO.ACS 11:08
PROVIDERS: PCP Internal Medicine; Visit Provider Internal Medicine
DX: Z79.01 Long term (current) use of anticoagulants (principal)

== ENCOUNTER → 2023-07-28 11:08 | Outpatient (BNVA) | payer MEDICARE, SELFPAY | PROVIDERS: PCP Internal Medicine; Visit Provider Internal Medicine | DX: I48.19 Other persistent atrial fibrillation (principal); Z79.01 Long term (current) use of anticoagulants; Z51.81 Encounter for therapeutic drug level monitoring | CPT/HCPCS: 85610; 99211 ==

== ENCOUNTER 2023-08-11 10:12 | Outpatient (AMB) | payer MEDICARE, SELFPAY ==
[2023-08-11 10:18] LABS: Prothrombin Time Whole Bld POC 33.6 sec (11.1-13.5); ~PT, ~INR - Anti Coag Clinic 2.8 (0.9-1.1)
--- NOTE | 2023-08-11 10:26 | MHC.OFFVISCO ---
Intake Intake Visit Reasons: Anticoagulation Allergies dexamethasone [From Decadron] Allergy (Intermediate, Verified 08/11/23 10:13) ITCHING/RASH paroxetine [From PAXIL] Allergy (Unknown, Verified 08/11/23 10:13) UNKNOWN venlafaxine [From EFFEXOR] Allergy (Unknown, Verified 08/11/23 10:13) UNKNOWN decadron Allergy (Unknown, Uncoded 08/11/23 10:13) rash Medication List - Last Reconciled 08/11/23 by Daria Dale RN acetaminophen 500 mg PO Q6H PRN albuterol sulfate 90 mcg/actuation (Ventolin HFA) 2 puffs inhalation Q4-6H PRN albuterol sulfate 90 mcg/actuation 2 puffs inhalation Q4-6H PRN atorvastatin 10 mg PO BEDTIME bupropion HCl 150 mg PO QAM docusate sodium 50 mg PO DAILY PRN donepezil 10 mg PO DAILY@1700 doxazosin 4 mg PO BEDTIME 30 days finasteride 5 mg PO DAILY 90 days fluticasone propionate 50 mcg/actuation (Flonase Allergy Relief) 2 sprays intranasal DAILY lorazepam 0.5 mg PO BEDTIME PRN memantine 10 mg PO BID multivitamin 1 tab PO DAILY quetiapine 50 mg PO BEDTIME sotalol 80 mg PO BID tiotropium bromide (Spiriva with HandiHaler) 1 cap inhalation DAILY warfarin 5 mg See Protocol PO DAILY Nursing Note INR: 2.8 in therapeutic range Medications and supplements reviewed No changes in health, diet, medications, or supplements, Denies any signs and symptoms of bleeding or bruising or clotting. Bleeding, bruising, clotting discussed Nutritional guidance given REMEBER TO HAVE WEEKLY GREENS OR OCC ENSURE Dose: 5MG X 3 DAYS/ 2.5MG X 4 DAYS F/U INR: 4 WEEKS Patient verbalizes understanding of instructions given Anti-Coag Initial Assessment Social Hx Patient Tobacco Use Status: Former Tobacco user Quit Date: 2007 Tobacco use type: Cigarette Smoking packs per day: 1 alcohol intake: current Alcohol intake frequency: does not drink Coding Level of Care Code Est Patient Level 1 Diagnoses Current use of anticoagulant therapy Z79.01 Assessment & Plan Assessment & Plan (1) Current use of anticoagulant therapy: Code(s): Z79.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
== END 2023-08-11 10:28 | disposition home or self-care (01) ==
LOC: HO.ACS 10:12
PROVIDERS: PCP Internal Medicine; Visit Provider Internal Medicine
DX: Z79.01 Long term (current) use of anticoagulants (principal)

== ENCOUNTER 2023-08-11 10:12 | Outpatient (REF) | payer MEDICARE, SELFPAY ==
[2023-08-11 15:33] LABS: Prostate Specific Antigen 1.77 ng/mL (<0.05-4.0)
== END 2023-08-11 10:13 | disposition home or self-care (01) ==
LOC: HO.LAB 10:12
PROVIDERS: Absent Provider Urology; PCP Internal Medicine; Visit Provider Internal Medicine
DX: Z12.5 Encounter for screening for malignant neoplasm of prostate (principal); C61 Malignant neoplasm of prostate; I48.19 Other persistent atrial fibrillation; Z51.81 Encounter for therapeutic drug level monitoring; Z79.01 Long term (current) use of anticoagulants
CPT/HCPCS: 36415; 84153; 85610; 99211

== ENCOUNTER 2023-08-12 13:14 | Outpatient (AMB) | payer MEDICARE, SELFPAY ==
--- NOTE | 2023-08-12 13:15 | MHC.OFFVIS ---
Intake Intake Visit Reasons: 2m/PSA(set) Intake Note: Patient is Present for Telephone Follow Up PSA Urology Med: Doxazosin, Finasteride Antibiotic Allergy: None Blood Thinner: Warfarin Allergies dexamethasone [From Decadron] Allergy (Intermediate, Verified 08/12/23 13:15) ITCHING/RASH paroxetine [From PAXIL] Allergy (Unknown, Verified 08/12/23 13:15) UNKNOWN venlafaxine [From EFFEXOR] Allergy (Unknown, Verified 08/12/23 13:15) UNKNOWN decadron Allergy (Unknown, Uncoded 08/12/23 13:15) rash Medication List - Last Reconciled 08/12/23 by Reji Fox MD acetaminophen 500 mg PO Q6H PRN albuterol sulfate 90 mcg/actuation (Ventolin HFA) 2 puffs inhalation Q4-6H PRN albuterol sulfate 90 mcg/actuation 2 puffs inhalation Q4-6H PRN atorvastatin 10 mg PO BEDTIME bupropion HCl 150 mg PO QAM docusate sodium 50 mg PO DAILY PRN donepezil 10 mg PO DAILY@1700 doxazosin 4 mg PO BEDTIME 90 days finasteride 5 mg PO DAILY 90 days fluticasone propionate 50 mcg/actuation (Flonase Allergy Relief) 2 sprays intranasal DAILY lorazepam 0.5 mg PO BEDTIME PRN memantine 10 mg PO BID multivitamin 1 tab PO DAILY quetiapine 50 mg PO BEDTIME sotalol 80 mg PO BID tiotropium bromide (Spiriva with HandiHaler) 1 cap inhalation DAILY warfarin 5 mg See Protocol PO DAILY HPI HPI Comments History of Present Illness Details Satya is a pleasant male. He is a patient of Dr. Arreola. 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 Telemedicine Evaluation 15 min Consultation Doximity Luisito Video attepted Has done better with doxazosin May need bladder stability sedation Check in 6 months PSA Prostate cancer - low-grade, low volume Prior biopsy with [facility] 6, 1 core 5% PSA range proximally 6-6.5 PSA 01/26 6.5, 07/29 5.0, 09/29 2.4 finasteride, 05/30 2.2, 08/29 1.7 Has previously been happy with active surveillance Current therapy - cyclic 5AR [facility] Medical History Cognitive dysfunction External hemorrhoids with complication Mild cognitive impairment with memory loss Depression Essential hypertension COPD (chronic obstructive pulmonary disease) Paroxysmal atrial fibrillation HLD (hyperlipidemia) Persistent atrial fibrillation Surgical History Hx of cystoscopy Hx of colonoscopy History of prostate biopsy History of cardiac radiofrequency ablation Family History Father CVD (cardiovascular disease) Mother Cancer Afib Social History Are you a primary health care liaison to a significant other at home: No Alcohol intake: current Alcohol intake frequency: does not drink Alcohol type: other Patient Tobacco Use Status: Former Tobacco user Quit Date: 2007 Tobacco use type: Cigarette Cigarette Packs Per Day: 1 Review of Systems Const All systems reviewed & are unremarkable except as noted in HPI and below Reports no additional complaints Resp Reports no additional complaints GI Reports no additional complaints Reports as per HPI Musc Reports no additional complaints Physical Exam Telemedicine evaluation Appropriate responses Regular breathing rate and rhythm HEENT Head: Yes normal to inspection Ears: hearing grossly normal bilaterally Eyes General: appearance normal, both eyes and all related structures Neck Neck: Yes normal visual inspection Chest Chest palpation & inspection: normal inspection of the chest Resp Effort & Inspection: normal respiratory effort and able to speak in complete sentences Assessment & Plan Assessment & Plan (1) Prostate cancer: Comment: Low Grade Code(s): C61 - Malignant neoplasm of prostate Plan Continue alpha-mallory 6 month follow-up PSA May need bladder stabilization Orders: Orders Prostate Specific Antigen 08/11/23 C61 - Malignant neoplasm of prostate Prostate Specific Antigen 6 Months C61 - Malignant neoplasm of prostate Medications: Changed From doxazosin 4 mg PO BEDTIME 30 days 30 tabs 1RF N31.9 - Neuromuscular dysfunction of bladder, unspecified, R39.15 - Urgency of urination To doxazosin 4 mg PO BEDTIME 90 days 90 tabs 1RF N31.9 - Neuromuscular dysfunction of bladder, unspecified, R39.15 - Urgency of urination Patient Instructions: Imaging studies, laboratory and physical exam results were discussed and reviewed in detail. No major barriers to patient understanding were identified. An opportunity to ask questions regarding the treatment plan was provided. All questions were answered. The patient expressed understanding and agreement with the above treatment plan. The patient is aware they should contact our office by phone for worsening of their current condition or the appearance of new urologic symptoms. Compliance is encouraged with any medications and followup testing that is ordered. It is a privilege to participate in the urologic care of your patient. If you have any questions or concerns regarding treatment for the above conditions, or other urologic issues, please do not hesitate to contact me. The office telephone contact is [phone]. This note is constructed using voice recognition software. While every effort has been made to ensure accuracy solution engineer errors may have been included. Yours sincerely, Dr Reji Fox MD, MARIA ALEJANDRA [facility] - Urology Providers of Expert, Compassionate Care for the Genitourinary System Telehealth Telehealth Location of provider rendering services: practice address Location of patient: address on file Patient Identification confirmed using: Name, : Yes Telehealth method: video Patient verbally consented to treatment: Yes Patient verbally consented to billing insurance company: Yes Patient informed of any privacy concerns related to visit: Yes Coding Level of Care Code Tele Est Pt Level 3 (69363) Diagnoses Prostate cancer C61
== END 2023-08-12 13:59 | disposition home or self-care (01) ==
LOC: HO.HUSH 13:14
PROVIDERS: PCP Internal Medicine; Visit Provider Urology
DX: C61 Malignant neoplasm of prostate (principal)
CPT/HCPCS: 99213

== ENCOUNTER → 2023-08-12 13:14 | Outpatient (BNVA) | payer MEDICARE, SELFPAY | PROVIDERS: PCP Internal Medicine; Visit Provider Urology ==

== ENCOUNTER 2023-09-08 10:35 | Outpatient (AMB) | payer MEDICARE, SELFPAY ==
[2023-09-08 10:43] LABS: Prothrombin Time Whole Bld POC 37.4 sec (11.1-13.5); ~PT, ~INR - Anti Coag Clinic 3.1 (0.9-1.1)
--- NOTE | 2023-09-08 10:46 | MHC.OFFVISCO ---
Intake Intake Visit Reasons: Anticoagulation Allergies dexamethasone [From Decadron] Allergy (Intermediate, Verified 09/08/23 10:36) ITCHING/RASH paroxetine [From PAXIL] Allergy (Unknown, Verified 09/08/23 10:36) UNKNOWN venlafaxine [From EFFEXOR] Allergy (Unknown, Verified 09/08/23 10:36) UNKNOWN decadron Allergy (Unknown, Uncoded 09/08/23 10:36) rash Medication List - Last Reconciled 09/08/23 by Hazel Ellison RN acetaminophen 500 mg PO Q6H PRN albuterol sulfate 90 mcg/actuation (Ventolin HFA) 2 puffs inhalation Q4-6H PRN albuterol sulfate 90 mcg/actuation 2 puffs inhalation Q4-6H PRN atorvastatin 10 mg PO BEDTIME bupropion HCl 150 mg PO QAM docusate sodium 50 mg PO DAILY PRN donepezil 10 mg PO DAILY@1700 doxazosin 4 mg PO BEDTIME 90 days finasteride 5 mg PO DAILY 90 days fluticasone propionate 50 mcg/actuation (Flonase Allergy Relief) 2 sprays intranasal DAILY lorazepam 0.5 mg PO BEDTIME PRN memantine 10 mg PO BID multivitamin 1 tab PO DAILY quetiapine 50 mg PO BEDTIME sotalol 80 mg PO BID tiotropium bromide (Spiriva with HandiHaler) 1 cap inhalation DAILY warfarin 5 mg See Protocol PO DAILY Nursing Note Amb to [facility] accomp by feeling well Medications and supplements reviewed No changes in health, medications, or supplements, reports decrease in proteins and appetite, she is trying Ensure Denies any unusual signs and symptoms of bruising, bleeding Denies any new Chest pain, SOB, or clotting INR: 3.1 just above therapeutic range Nutritional guidance given: have a good green today then balance greens and reds in diet Dose: continue usual dosing; 5mg x 3 days and 2.5mg x 4 days F/U INR: 4 weeks Patient verbalizes understanding of instructions given with accurate read back/ teach back of dosing Anti-Coag Initial Assessment Social Hx Patient Tobacco Use Status: Former Tobacco user Quit Date: 2007 Tobacco use type: Cigarette Smoking packs per day: 1 alcohol intake: current Alcohol intake frequency: does not drink Questionnaires HAS-BLED Does the patient had uncontrolled Hypertension?: No Does the patient have renal disease?: No Does the patient have liver disease?: No Does the patient have a history of stroke?: No Has the patient had major bleeding or predisposition to bleeding?: Yes Does the patient have labile INRs?: No Is the patient over 65 years of age?: Yes Is the patient on medications that gives them a predisposition to bleeding?: Yes Does the patient use alcohol?: No HAS-BLED Score: 3 CHADSVASC Age: 66-74 Gender: Male Does the patient have a history of CHF?: No Does the patient have a history of Hypertension?: Yes Does the patient have a history of Stroke/TIA/Thromboembolism?: No Does the patient have a history of Vascular Disease (prior [place], PAD or aortic plaque)?: No Does the patient have a history of Diabetes?: No CHADS VACS Score: 2 Orlando Prediction Score Rsk VTE Active Cancer: No Previous VTE, excluding superficial vein thrombosis: No Reduced mobility: No Already known Thrombophilic Condition: Yes With-in last month Trauma and/or Surgery: No Elderly 70 year or older: Yes Heart and/or Respiratory Failure: No Acute Myocardial infarction and/or Ischemic Stroke: No Acute Infection and/or Rheumatologic Disorder: No Obesity (BMI 30 or greater): No Ongoing Hormonal Treatment: No Score: 4 [place] Score less than 4; Low Risk of VTE [place] Score 4 or greater; High Risk of VTE Coding Level of Care Code Est Patient Level 1 Diagnoses Current use of anticoagulant therapy Z79.01 Time Spent (min) 15 Assessment & Plan Assessment & Plan (1) Current use of anticoagulant therapy: Code(s): Z79.01 - ocean transportation intermediary (current) use of anticoagulants Category: Medical
== END 2023-09-08 11:15 | disposition home or self-care (01) ==
LOC: HO.ACS 10:35
PROVIDERS: PCP Internal Medicine; Visit Provider Internal Medicine
DX: Z79.01 Long term (current) use of anticoagulants (principal)

== ENCOUNTER → 2023-09-08 10:35 | Outpatient (BNVA) | payer MEDICARE, SELFPAY | PROVIDERS: PCP Internal Medicine; Visit Provider Internal Medicine | DX: I48.19 Other persistent atrial fibrillation (principal); Z51.81 Encounter for therapeutic drug level monitoring; Z79.01 Long term (current) use of anticoagulants | CPT/HCPCS: 85610; 99211 ==

== ENCOUNTER 2023-10-12 11:16 | Outpatient (AMB) | payer MEDICARE, SELFPAY ==
--- NOTE | 2023-10-12 11:24 | MHC.OFFVISCO ---
Intake Intake Visit Reasons: Anticoagulation Allergies dexamethasone [From Decadron] Allergy (Intermediate, Verified 10/12/23 11:17) ITCHING/RASH paroxetine [From PAXIL] Allergy (Unknown, Verified 10/12/23 11:17) UNKNOWN venlafaxine [From EFFEXOR] Allergy (Unknown, Verified 10/12/23 11:17) UNKNOWN decadron Allergy (Unknown, Uncoded 10/12/23 11:17) rash Medication List - Last Reconciled 10/12/23 by Trinidad Cantu RN acetaminophen 500 mg PO Q6H PRN albuterol sulfate 90 mcg/actuation (Ventolin HFA) 2 puffs inhalation Q4-6H PRN albuterol sulfate 90 mcg/actuation 2 puffs inhalation Q4-6H PRN atorvastatin 10 mg PO BEDTIME bupropion HCl 150 mg PO QAM docusate sodium 50 mg PO DAILY PRN donepezil 10 mg PO DAILY@1700 doxazosin 4 mg PO BEDTIME 90 days finasteride 5 mg PO DAILY 90 days fluticasone propionate 50 mcg/actuation (Flonase Allergy Relief) 2 sprays intranasal DAILY lorazepam 0.5 mg PO BEDTIME PRN memantine 10 mg PO BID multivitamin 1 tab PO DAILY quetiapine 50 mg PO BEDTIME sotalol 80 mg PO BID tiotropium bromide (Spiriva with HandiHaler) 1 cap inhalation DAILY warfarin 5 mg See Protocol PO DAILY Nursing Note INR 3.1-? out of therapeutic range of 2-3 Medications and supplements reviewed Patient status: c.o being cold Medications or supplements: no changes Diet: less appetite, taking ensure occ Denies any signs and symptoms of bleeding or clotting or unusual bruising Bleeding, bruising, clotting discussed Nutritional guidance given: increase greens Dose: 5mg x 3, 2.5mg x 4 F/U INR Date : 3 weeks? Patient and verbalizing understanding of instructions given. 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
[2023-10-12 11:26] LABS: Prothrombin Time Whole Bld POC 37.1 sec (11.1-13.5); ~PT, ~INR - Anti Coag Clinic 3.1 (0.9-1.1)
== END 2023-10-12 12:06 | disposition home or self-care (01) ==
LOC: HO.ACS 11:16
PROVIDERS: PCP Internal Medicine; Visit Provider Internal Medicine
DX: Z79.01 Long term (current) use of anticoagulants (principal)

== ENCOUNTER → 2023-10-12 11:16 | Outpatient (BNVA) | payer MEDICARE, SELFPAY | PROVIDERS: PCP Internal Medicine; Visit Provider Internal Medicine | DX: I48.19 Other persistent atrial fibrillation (principal); Z51.81 Encounter for therapeutic drug level monitoring; Z79.01 Long term (current) use of anticoagulants | CPT/HCPCS: 85610; 99211 ==

== ENCOUNTER 2023-11-02 13:42 | Outpatient (AMB) | payer MEDICARE, SELFPAY ==
[2023-11-02 13:52] LABS: Prothrombin Time Whole Bld POC 29.2 sec (11.1-13.5); ~PT, ~INR - Anti Coag Clinic 2.4 (0.9-1.1)
--- NOTE | 2023-11-02 14:02 | MHC.OFFVISCO ---
Intake Intake Visit Reasons: Anticoagulation Allergies dexamethasone [From Decadron] Allergy (Intermediate, Verified 11/02/23 13:42) ITCHING/RASH paroxetine [From PAXIL] Allergy (Unknown, Verified 11/02/23 13:42) UNKNOWN venlafaxine [From EFFEXOR] Allergy (Unknown, Verified 11/02/23 13:42) UNKNOWN decadron Allergy (Unknown, Uncoded 11/02/23 13:42) rash Medication List - Last Reconciled 11/02/23 by Hazel Ellison RN acetaminophen 500 mg PO Q6H PRN albuterol sulfate 90 mcg/actuation (Ventolin HFA) 2 puffs inhalation Q4-6H PRN albuterol sulfate 90 mcg/actuation 2 puffs inhalation Q4-6H PRN atorvastatin 10 mg PO BEDTIME bupropion HCl 150 mg PO QAM docusate sodium 50 mg PO DAILY PRN donepezil 10 mg PO DAILY@1700 doxazosin 4 mg PO BEDTIME 90 days finasteride 5 mg PO DAILY 90 days fluticasone propionate 50 mcg/actuation (Flonase Allergy Relief) 2 sprays intranasal DAILY lorazepam 0.5 mg PO BEDTIME PRN memantine 10 mg PO BID multivitamin 1 tab PO DAILY quetiapine 50 mg PO BID sotalol 80 mg PO BID tiotropium bromide (Spiriva with HandiHaler) 1 cap inhalation DAILY warfarin 5 mg See Protocol PO DAILY Nursing Note Amb to [facility] accomp by , feeling ok (dementia) Medications and supplements reviewed No changes in health, diet, or supplements- quetiapine increase from daily HS to BID on 09/26/23 (am and HS) (can increase INR) Denies any unusual signs and symptoms of bruising, bleeding Denies any new Chest pain, SOB, or clotting INR: 2.4 in therapeutic range Nutritional guidance given: balance greens and reds in diet Dose: continue usual dosing;5mg x 3 days and 2.5mg x 4 days F/U INR: 2 weeks Patient verbalizes understanding of instructions given with accurate read back/ teach back of dosing Anti-Coag Initial Assessment Social Hx Patient Tobacco Use Status: Former Tobacco user Quit Date: 2007 Tobacco use type: Cigarette Smoking packs per day: 1 alcohol intake: current Alcohol intake frequency: does not drink Coding Level of Care Code Est Patient Level 1 Diagnoses Current use of anticoagulant therapy Z79.01 Time Spent (min) 15 Assessment & Plan Assessment & Plan (1) Current use of anticoagulant therapy: Code(s): Z79.01 - [facility] (current) use of anticoagulants Category: Medical
== END 2023-11-02 14:05 | disposition home or self-care (01) ==
LOC: HO.ACS 13:42
PROVIDERS: PCP Internal Medicine; Visit Provider Internal Medicine
DX: Z79.01 Long term (current) use of anticoagulants (principal)

== ENCOUNTER → 2023-11-02 13:42 | Outpatient (BNVA) | payer MEDICARE, SELFPAY | PROVIDERS: PCP Internal Medicine; Visit Provider Internal Medicine | DX: I48.19 Other persistent atrial fibrillation (principal); Z79.01 Long term (current) use of anticoagulants; Z51.81 Encounter for therapeutic drug level monitoring | CPT/HCPCS: 85610; 99211 ==

== ENCOUNTER 2023-11-18 13:56 | Outpatient (REF) | payer MEDICARE, SELFPAY ==
[2023-11-18 16:59] LABS: Hemoglobin 15.7 g/dl (14.0-18.0); Mean Corpuscular HGB Conc 33.4 g/dl (31.0-36.0); Mean Corpuscular Hemoglobin 29.9 pg (27.0-33.0); Mean Corpuscular Volume 89.5 fL (80.0-98.0); Mean Platelet Volume 14.7 fL (9.4-12.4); Red Blood Count 5.25 X10*6/uL (4.60-5.80); Red Cell Distribution Width 14.1 % (11.0-16.0); White Blood Count 10.1 X10*3/uL (4.8-10.8)
[2023-11-18 17:00] LABS: PLT ABN DIST 1; Platelet Count 53 X10*3/uL (160-400)
== END 2023-11-18 13:57 | disposition home or self-care (01) ==
LOC: HO.HMGCLDS 13:56
PROVIDERS: PCP Internal Medicine; Visit Provider Nurse Practitioner Adult Health
DX: D69.6 Thrombocytopenia, unspecified (principal)
CPT/HCPCS: 36415; 85027

== ENCOUNTER 2023-11-26 10:21 | Outpatient (AMB) | payer MEDICARE, SELFPAY ==
--- NOTE | 2023-11-26 10:51 | MHC.OFFVISCO ---
Intake Intake Visit Reasons: Anticoagulation Allergies dexamethasone [From Decadron] Allergy (Intermediate, Verified 11/26/23 10:26) ITCHING/RASH paroxetine [From PAXIL] Allergy (Unknown, Verified 11/26/23 10:26) UNKNOWN venlafaxine [From EFFEXOR] Allergy (Unknown, Verified 11/26/23 10:26) UNKNOWN decadron Allergy (Unknown, Uncoded 11/26/23 10:26) rash Nursing Note Pt to [facility] with . Pt is forgetful and when asked a question, he turns to his for the answer. INR: 4.1 out of therapeutic range 2-3 Medications and supplements reviewed. About 3 weeks ago, pt's dose of quietaipine was increased from qhs to bid which can have a delayed effect to raise the INR. No changes in health, diet, medications, or supplements. states pt's appetite is decreased. Signs and symptoms of bleeding or bruising or clotting discussed. Bleeding, bruising, clotting discussed. Pt and instructed to avoid activities with increased risk of injury/bleeding and to watch for S/S of bleeding Nutritional guidance given to avoid foods from the red list and to have greens the next 2 days then to balance greens and reds. New food list given. Dose: Hold todays dose of 2.5mg, tomorrow regular dose of 5mg and decrease Sat dose to 2.5mg(5mg) then weekly dose decreased to 5mg X2 days (Wed and Sat) and 2.5mg X 5 days F/U INR: 1 week Patient verbalizes understanding of instructions given Anti-Coag Initial Assessment Social Hx Patient Tobacco Use Status: Former Tobacco user Quit Date: 2007 Tobacco use type: Cigarette Smoking packs per day: 1 alcohol intake: current Alcohol intake frequency: does not drink Coding Level of Care Code Est Patient Level 1 Diagnoses Current use of anticoagulant therapy Z79.01 Results AMB INR Fingerstick AMB INR Fingerstick 4.1 Last Edit by Hazel Chávez RN on 11/26/23 10:35 interface delay Assessment & Plan Assessment & Plan (1) Current use of anticoagulant therapy: Code(s): Z79.01 - [facility] (current) use of anticoagulants Category: Medical
[2023-11-26 11:12] LABS: Prothrombin Time Whole Bld POC 48.7 sec (11.1-13.5); ~PT, ~INR - Anti Coag Clinic 4.1 (0.9-1.1)
== END 2023-11-26 11:07 | disposition home or self-care (01) ==
LOC: HO.ACS 10:21
PROVIDERS: PCP Internal Medicine; Visit Provider Internal Medicine
DX: Z79.01 Long term (current) use of anticoagulants (principal)

== ENCOUNTER → 2023-11-26 10:21 | Outpatient (BNVA) | payer MEDICARE, SELFPAY | PROVIDERS: PCP Internal Medicine; Visit Provider Internal Medicine | DX: I48.19 Other persistent atrial fibrillation (principal); Z79.01 Long term (current) use of anticoagulants; Z51.81 Encounter for therapeutic drug level monitoring | CPT/HCPCS: 85610; 99211 ==

== ENCOUNTER 2023-12-01 12:40 | Outpatient (AMB) | payer MEDICARE, SELFPAY ==
[2023-12-01 12:43] VITALS: BP 120/80; PULSE 97; BMI 29.0
--- NOTE | 2023-12-01 12:43 | MHC.OFFVIS ---
Intake Vital Signs 12/01/23 12:43 Height 5 ft 5 in Weight 174 lb 2.643 oz BMI 29.0 BP 120/80 Blood Pressure Location Lt brachial Position Sitting Pulse 97 Intake Visit Reasons: 1 year follow up Allergies dexamethasone [From Decadron] Allergy (Intermediate, Verified 11/26/23 10:26) ITCHING/RASH paroxetine [From PAXIL] Allergy (Unknown, Verified 11/26/23 10:26) UNKNOWN venlafaxine [From EFFEXOR] Allergy (Unknown, Verified 11/26/23 10:) UNKNOWN decadron Allergy (Unknown, Uncoded 11/26/23 10:26) rash Medication List - Last Reconciled 12/01/23 by Gavin Randle MD acetaminophen 500 mg PO Q6H PRN albuterol sulfate 90 mcg/actuation (Ventolin HFA) 2 puffs inhalation Q4-6H PRN albuterol sulfate 90 mcg/actuation 2 puffs inhalation Q4-6H PRN atorvastatin 10 mg PO BEDTIME bupropion HCl 150 mg PO QAM docusate sodium 50 mg PO DAILY PRN donepezil 10 mg PO DAILY@1700 doxazosin 4 mg PO BEDTIME 90 days finasteride 5 mg PO DAILY 90 days fluticasone propionate 50 mcg/actuation (Flonase Allergy Relief) 2 sprays intranasal DAILY lorazepam 0.5 mg PO BEDTIME PRN memantine 10 mg PO BID multivitamin 1 tab PO DAILY quetiapine 50 mg PO BID sotalol 80 mg PO BID tiotropium bromide (Spiriva with HandiHaler) 1 cap inhalation DAILY warfarin 5 mg See Protocol PO DAILY HPI HPI Comments History of Present Illness Details Satya comes for follow-up. He continues to have worsening cognitive issues as per his . He has no prolonged palpitation irregular heartbeat. Denies any exertional chest pain or shortness of breath. No fall issues. No bleeding issues or neurologic events. Denies any orthopnea, PND, leg edema. 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 at home: No Alcohol intake: current Alcohol intake frequency: does not drink Alcohol type: other Patient Tobacco Use Status: Former Tobacco user Quit Date: 2007 Tobacco use type: Cigarette Cigarette Packs Per Day: 1 Review of Systems Const Denies chills, Denies fatigue, Denies fever(s), Denies frequent falls, Denies weakness, Denies weight gain and Denies weight loss ENT Denies dizziness Card Denies chest pain, Denies leg edema, Denies lightheadedness, Denies palpitations, Denies dyspnea, Denies dyspnea on exertion, Denies orthopnea and Denies other (loss of consciousness) Resp Denies cough, Denies dyspnea and Denies dyspnea on exertion GI Denies hematochezia and Denies change in stool character Musc Denies abnormal gait, Denies muscle weakness, Denies numbness, Denies radiating pain into limb and Denies tingling Neuro Denies abnormal gait, Denies dizziness, Denies frequent falls, Denies numbness, Denies tingling and Denies weakness Endo Denies fatigue and Denies palpitations Physical Exam Vital Signs: Last Vital Signs Pulse 97 12/01/23 12:43 BP 120/80 12/01/23 12:43 BMI result Body Mass Index 29.0 Const General: cooperative, healthy appearing, comfortable and no acute distress Orientation/consciousness: patient oriented x3 HEENT Face and sinus: Yes normal facial exam Mouth: moist mucous membranes Neck Neck: Yes normal visual inspection, Yes full ROM and Yes trachea midline Chest Chest palpation & inspection: normal inspection of the chest Resp Effort & Inspection: normal respiratory effort, able to speak in complete sentences and no respiratory distress GI Inspection: Yes normal to inspection Back/Spine/Pelvis Cervical Spine: normal cervical lordosis Thoracic/Lumbar Spine: thoracic and lumbar spine normal to inspection Skin General skin exam: no rashes or lesions noted Neuro General: patient oriented x3, gait normal, tone normal and moves all extremities Extrem General: Yes normal to inspection and Yes capillary refill normal Office Procedures EKG Details: EKG shows normal sinus rhythm with rightward axis otherwise normal EKG [place] [id number], Complete Assessment & Plan Assessment & Plan (1) Paroxysmal atrial fibrillation: Code(s): I48.0 - Paroxysmal atrial fibrillation Plan: Highly symptomatic paroxysmal atrial fibrillation with no recurrence on current antiarrhythmic therapy with sotalol. He is tolerated this very well. Continue sotalol therapy. He will require semi annual EKGs which will be scheduled through your office. He is currently on full oral anticoagulation with warfarin. Target INR between 2 and 3 being followed by [facility]. We discussed about possibly switching to Eliquis therapy. They will think about it. Avoidance of stimulants was discussed advised to call me with worsening symptoms. (2) HLD (hyperlipidemia): Code(s): E78.5 - Hyperlipidemia, unspecified Plan: Hyperlipidemia currently on statin therapy. Target goal LDL less than 100 mg/dL. Blood pressure is currently well optimized. Continue to participate in activity level as tolerated. Will follow up in the clinic in 6 months for EKG in 1 year with me. Thank you for allowing me to partake in his care Coding Level of Care Code Est Pt Level 4 (63912) Diagnoses Paroxysmal atrial fibrillation I48.0 HLD (hyperlipidemia) E78.5 CPT Codes EKG - CPT: 55274-[id number], Complete ([id number])
== END 2023-12-01 13:11 | disposition home or self-care (01) ==
PROVIDERS: PCP Internal Medicine; Visit Provider Internal Medicine Cardiovascular Disease
DX: I48.0 Paroxysmal atrial fibrillation (principal); E78.5 Hyperlipidemia, unspecified
CPT/HCPCS: 93010; 99214

== ENCOUNTER 2023-12-01 12:40 | Outpatient (REF) | payer MEDICARE, SELFPAY ==
[2023-12-01 13:43] LABS: MANUAL DIFF FLAG NO
[2023-12-01 13:47] LABS: Basophils Percent Auto 0.3 % (0-2); Eosinophils Absolute Auto 0.1 X10*3/uL (0.0-0.4); Eosinophils Percent Auto 1.2 % (0-4); Hematocrit 46.9 % (42.0-52.0); Hemoglobin 15.6 g/dl (14.0-18.0); Imm Gran Abs Auto 0.05 X10*3/uL (0.00-0.03); Imm Gran Pct Auto 0.5 % (0.0-0.4); Lymphocytes Absolute Auto 1.2 X10*3/uL (1.2-4.9); Lymphocytes Percent Auto 11.7 % (20-40); Mean Corpuscular HGB Conc 33.3 g/dl (31.0-36.0); Mean Corpuscular Hemoglobin 29.9 pg (27.0-33.0); Mean Platelet Volume 12.5 fL (9.4-12.4); Monocytes Percent Auto 9.3 % (2-11); Red Blood Count 5.21 X10*6/uL (4.60-5.80); Red Cell Distribution Width 13.8 % (11.0-16.0); White Blood Count 10.4 X10*3/uL (4.8-10.8)
[2023-12-01 14:11] LABS: Estimated Average Glucose 100 mg/dL; Hemoglobin A1c % 5.1 % (<6.0)
[2023-12-01 14:25] LABS: Platelet Count 45 X10*3/uL (160-400)
[2023-12-01 14:31] LABS: Alanine Aminotransferase 24 U/L (0-40); Albumin Level 3.8 g/dL (3.5-5.0); Alkaline Phosphatase 143 U/L (39-117); Anion Gap 12 (12-20); Aspartate Amino Transferase 21 U/L (5-37); Bilirubin Total 0.4 mg/dL (0.0-1.0); Blood Urea Nitrogen 16 mg/dL (9-16); Calcium 9.3 mg/dL (8.4-10.2); Carbon Dioxide 28 mmol/L (22-29); Chloride 106 mmol/L (96-108); Estimated Glomerular Filt Rate > 60; Glucose Random 125 mg/dL (60-115); Potassium 4.3 mmol/L (3.3-5.1); Sodium 142 mmol/L (135-145); Total Protein 7.1 g/dL (6.5-8.0)
[2023-12-01 14:45] LABS: Free T4 (Free Thyroxine) 0.89 ng/dL (0.71-1.85); Prostate Specific Antigen 1.79 ng/mL (<0.05-4.0)
[2023-12-01 16:00] LABS: Appearance Urine Clear; Color Urine DK YELLOW; Glucose Urine UA Negative (Negative); Leukocyte Esterase Urine Negative (Negative); Nitrite Urine Negative (Negative); Specific Gravity - Urine >= 1.030 (1.005-1.025); Urine Blood Negative (Negative); Urine Ketones Trace mg/dL (Negative); Urine Protein Trace mg/dL (Neg-Trace)
== END 2023-12-01 12:41 | disposition home or self-care (01) ==
LOC: HO.XRAY 12:40
PROVIDERS: PCP Internal Medicine; Visit Provider Internal Medicine Cardiovascular Disease
DX: Z12.5 Encounter for screening for malignant neoplasm of prostate (principal); M54.50 Low back pain, unspecified; C61 Malignant neoplasm of prostate; N50.812 Left testicular pain; I10 Essential (primary) hypertension; R73.01 Impaired fasting glucose; I48.19 Other persistent atrial fibrillation; R35.0 Frequency of micturition
CPT/HCPCS: 36415; 80053; 81003; 83036; 84153; 84439; 84443; 85025; 87086; 93005; 99212

== ENCOUNTER 2023-12-02 15:06 | Outpatient (REF) | payer MEDICARE, SELFPAY ==
--- NOTE | ~2023-12-02 | XR_ITS ---
EXAMINATION: XR LUMBOSACRAL SPINE CLINICAL INFORMATION: Acute left-sided low back pain without sciatica. COMPARISON: None available. TECHNIQUE: 3 views of the lumbosacral spine. FINDINGS: The bones are diffusely demineralized. Degenerative changes in the imaged lower thoracic spine. Atherosclerotic aortoiliac calcifications. Degenerative changes in the bilateral sacroiliac joints. Dextroscoliosis of the lumbar spine. Facet arthritis in the lower lumbar spine. Multilevel lumbar spondylosis with multilevel loss of disc space height most notable at L4-L5 and L5-S1. Grade 1 retrolisthesis of L4 on L5. XR/XR lumbar spine 2-3V IMPRESSION: Multilevel lumbar spondylosis most notable at L4-L5 and L5-S1.
--- NOTE | ~2023-12-02 | US_ITS ---
EXAMINATION: US SCROTUM CLINICAL INFORMATION: Pain left testicle. COMPARISON: None available. TECHNIQUE: A sonogram of the scrotum was performed assessing romero-scale appearance and color Doppler flow. Spectral Doppler analysis of the arterial and venous flow were performed in the testes bilaterally. FINDINGS: RIGHT: Right testicle measures 3.2 x 2.1 x 3.1 cm, volume 10.8 mL. Tiny echogenic foci within the testicle are characteristic of microlithiasis. Spectral Doppler analysis of the arterial and venous flow is normal in the right testis. Multiple right epididymal cysts, largest 0.7 cm. Echogenic focus along the lateral upper aspect of the right epididymis measuring 0.1 cm may possibly represent a tiny calcification. Echogenic focus along the inferior aspect of the right testicle is characteristic of a calcified nodule, possibly a scrotal senia. No right hydrocele or varicocele is seen. Right epididymal Doppler flow is normal. LEFT: Left testicle measures 2.9 x 1.5 x 2.4 cm, volume 5.5 mL. Tiny echogenic foci within the testicle are characteristic of microlithiasis. Spectral Doppler analysis of the arterial and venous flow is normal in the left testis. Left epididymal head is unremarkable in size. No left hydrocele is seen. Left epididymal Doppler flow is normal. US/US scrotum IMPRESSION: 1. Tiny echogenic foci within the bilateral testicles are characteristic of microlithiasis. . 2. Echogenic focus along the lateral upper aspect of the right epididymis measuring 0.1 cm may possibly represent a tiny calcification. 3. Echogenic focus along the inferior aspect of the right testicle is characteristic of a calcified nodule, possibly a scrotal senia. 4. Left varicocele. 5. Right epididymal cysts, largest 0.7 cm.
== END 2023-12-02 15:07 | disposition home or self-care (01) ==
LOC: HO.US 15:06
PROVIDERS: Referring Provider Urology; Visit Provider Internal Medicine
DX: M54.50 Low back pain, unspecified (principal); N50.812 Left testicular pain
CPT/HCPCS: 72100; 76870

== ENCOUNTER 2023-12-07 11:19 | Outpatient (AMB) | payer MEDICARE, SELFPAY ==
[2023-12-07 11:25] LABS: Prothrombin Time Whole Bld POC 40.1 sec (11.1-13.5); ~PT, ~INR - Anti Coag Clinic 3.3 (0.9-1.1)
--- NOTE | 2023-12-07 11:34 | MHC.OFFVISCO ---
Intake Intake Visit Reasons: Anticoagulation Allergies dexamethasone [From Decadron] Allergy (Intermediate, Verified 12/07/23 11:19) ITCHING/RASH paroxetine [From PAXIL] Allergy (Unknown, Verified 12/07/23 11:19) UNKNOWN venlafaxine [From EFFEXOR] Allergy (Unknown, Verified 12/07/23 11:19) UNKNOWN decadron Allergy (Unknown, Uncoded 12/07/23 11:19) rash Medication List - Last Reconciled 12/07/23 by Daria Dale RN acetaminophen 500 mg PO Q6H PRN albuterol sulfate 90 mcg/actuation (Ventolin HFA) 2 puffs inhalation Q4-6H PRN albuterol sulfate 90 mcg/actuation 2 puffs inhalation Q4-6H PRN atorvastatin 10 mg PO BEDTIME bupropion HCl 150 mg PO QAM docusate sodium 50 mg PO DAILY PRN donepezil 10 mg PO DAILY@1700 doxazosin 4 mg PO BEDTIME 90 days finasteride 5 mg PO DAILY 90 days fluticasone propionate 50 mcg/actuation (Flonase Allergy Relief) 2 sprays intranasal DAILY lorazepam 0.5 mg PO BEDTIME PRN memantine 10 mg PO BID multivitamin 1 tab PO DAILY quetiapine 50 mg PO BID sotalol 80 mg PO BID tiotropium bromide (Spiriva with HandiHaler) 1 cap inhalation DAILY warfarin 5 mg See Protocol PO DAILY Nursing Note INR: 3.3 ALMOST therapeutic range- PT HAS NOT HAD HIS ENSURE/ BOOST WILL RESUME 2 / WEEK TO MAKE UP FOR A MISSED MEAL OR WHEN HE DOES NOT FEEL LIEK EATING Medications and supplements reviewed No changes in health, diet, medications, or supplements, Denies any signs and symptoms of bleeding or bruising or clotting. Bleeding, bruising, clotting discussed Nutritional guidance given- REVIEW FOOD LIST WEEKLY, REVIEWED WITH FOODS THAT INCREASE AND DECREASE THE INR Dose: KEEP SAME 5MG X 2 DAYS/ 2.5MG X 5 DAYS AND GIVE DOSE A LITTLE MORE TIME TO WORK- 5MG X 2 DAYS/ 2.5MG X 5 DAYS F/U INR: 11 DAYS Patient verbalizes understanding of instructions given Anti-Coag Initial Assessment Social Hx Patient Tobacco Use Status: Former Tobacco user Quit Date: 2007 Tobacco use type: Cigarette Smoking packs per day: 1 alcohol intake: current Alcohol intake frequency: does not drink Coding Level of Care Code Est Patient Level 1 Diagnoses Current use of anticoagulant therapy Z79.01 Results AMB INR Fingerstick AMB INR Fingerstick 3.3 Last Edit by Daria Dale RN on 12/07/23 11:29 MANUAL ENTRY Assessment & Plan Assessment & Plan (1) Current use of anticoagulant therapy: Code(s): Z79.01 - [facility] (current) use of anticoagulants Category: Medical
== END 2023-12-07 11:38 | disposition home or self-care (01) ==
LOC: HO.ACS 11:19
PROVIDERS: PCP Internal Medicine; Visit Provider Internal Medicine
DX: Z79.01 Long term (current) use of anticoagulants (principal)

== ENCOUNTER → 2023-12-07 11:19 | Outpatient (BNVA) | payer MEDICARE, SELFPAY | PROVIDERS: PCP Internal Medicine; Visit Provider Internal Medicine | DX: I48.19 Other persistent atrial fibrillation (principal); Z79.01 Long term (current) use of anticoagulants; Z51.81 Encounter for therapeutic drug level monitoring | CPT/HCPCS: 85610; 99211 ==

== ENCOUNTER 2023-12-18 10:53 | Outpatient (AMB) | payer MEDICARE, SELFPAY ==
[2023-12-18 11:00] LABS: Prothrombin Time Whole Bld POC 38.3 sec (11.1-13.5); ~PT, ~INR - Anti Coag Clinic 3.2 (0.9-1.1)
--- NOTE | 2023-12-18 11:14 | MHC.OFFVISCO ---
Intake Intake Visit Reasons: Anticoagulation Allergies dexamethasone [From Decadron] Allergy (Intermediate, Verified 12/07/23 11:19) ITCHING/RASH paroxetine [From PAXIL] Allergy (Unknown, Verified 12/07/23 11:19) UNKNOWN venlafaxine [From EFFEXOR] Allergy (Unknown, Verified 12/07/23 11:19) UNKNOWN decadron Allergy (Unknown, Uncoded 12/07/23 11:19) rash Nursing Note INR still out of therapeutic range Medications and supplements reviewed Patient status: states had not gotten ensure or boost yet, appetite decreased , has constipation, enc fiber foods like fruits and vegetables and to discuss with md Medications or supplements: no changes - has colace ordered Diet: decreased appetite Denies any signs and symptoms of bleeding or clotting or unusual bruising Bleeding, bruising, clotting discussed Nutritional guidance given: review food list weekly, eat a mix of fruits and vegetables Dose: decrease dose to 5mg x 1 day/ 2.5mg x 6 days F/U INR Date : 10 days ?? Patient verbalizing understanding of instructions given. 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
== END 2023-12-18 11:21 | disposition home or self-care (01) ==
LOC: HO.ACS 10:53
PROVIDERS: PCP Internal Medicine; Visit Provider Internal Medicine
DX: Z79.01 Long term (current) use of anticoagulants (principal)

== ENCOUNTER → 2023-12-18 10:53 | Outpatient (BNVA) | payer MEDICARE, SELFPAY | PROVIDERS: PCP Internal Medicine; Visit Provider Internal Medicine | DX: I48.19 Other persistent atrial fibrillation (principal); Z79.01 Long term (current) use of anticoagulants; Z51.81 Encounter for therapeutic drug level monitoring | CPT/HCPCS: 85610; 99211 ==

== ENCOUNTER 2023-12-28 11:02 | Outpatient (AMB) | payer MEDICARE, SELFPAY ==
[2023-12-28 11:21] LABS: ~PT, ~INR - Anti Coag Clinic 1.8 (0.9-1.1)
--- NOTE | 2023-12-28 11:25 | MHC.OFFVISCO ---
Intake Intake Visit Reasons: Anticoagulation Allergies dexamethasone [From Decadron] Allergy (Intermediate, Verified 12/28/23 11:15) ITCHING/RASH paroxetine [From PAXIL] Allergy (Unknown, Verified 12/28/23 11:15) UNKNOWN venlafaxine [From EFFEXOR] Allergy (Unknown, Verified 12/28/23 11:15) UNKNOWN decadron Allergy (Unknown, Uncoded 12/28/23 11:15) rash Medication List - Last Reconciled 12/28/23 by Hazel Ellison RN acetaminophen 500 mg PO Q6H PRN albuterol sulfate 90 mcg/actuation (Ventolin HFA) 2 puffs inhalation Q4-6H PRN albuterol sulfate 90 mcg/actuation 2 puffs inhalation Q4-6H PRN atorvastatin 10 mg PO BEDTIME bupropion HCl XL 150 mg PO QAM docusate sodium 50 mg PO DAILY PRN donepezil 10 mg PO DAILY@1700 doxazosin 4 mg PO BEDTIME 90 days finasteride 5 mg PO DAILY 90 days fluticasone propionate 50 mcg/actuation (Flonase Allergy Relief) 2 sprays intranasal DAILY lorazepam 0.5 mg PO BEDTIME PRN memantine 10 mg PO BID multivitamin 1 tab PO DAILY quetiapine 50 mg PO BID sotalol 80 mg PO BID tiotropium bromide (Spiriva with HandiHaler) 1 cap inhalation DAILY warfarin 5 mg See Protocol PO DAILY Nursing Note Amb to [facility] accomp by (pt with alzheimers/cognitive) Medications and supplements reviewed, recent dosing adjustments as he was trending high continues with poor appetite and occ constipation No other changes in health, diet, medications, or supplements, Denies any signs and symptoms of bleeding, bruising, or clotting. Bleeding, bruising, clotting discussed INR 1.8 below therapeutic range Nutritional guidance given no greens Boost for today then balance greens and reds in diet Dose: increase dose today to 5mg then resume dosing 5mg on Thursday and 2.5mg all other days F/U INR: 10 days Patients verbalizes understanding of instructions given sts she is picking up medical records as applying for pt to go to [facility], upset but recognizes need for placement Anti-Coag Initial Assessment Social Hx Patient Tobacco Use Status: Former Tobacco user Quit Date: 2007 Tobacco use type: Cigarette Smoking packs per day: 1 alcohol intake: current Alcohol intake frequency: does not drink Coding Level of Care Code Est Patient Level 1 Diagnoses Current use of anticoagulant therapy Z79.01 Time Spent (min) 15 Assessment & Plan Assessment & Plan (1) Current use of anticoagulant therapy: 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
== END 2023-12-28 11:36 | disposition home or self-care (01) ==
LOC: HO.ACS 11:02
PROVIDERS: PCP Internal Medicine; Visit Provider Internal Medicine
DX: Z79.01 Long term (current) use of anticoagulants (principal)

== ENCOUNTER → 2023-12-28 11:02 | Outpatient (BNVA) | payer MEDICARE, SELFPAY | PROVIDERS: PCP Internal Medicine; Visit Provider Internal Medicine | DX: I48.19 Other persistent atrial fibrillation (principal); Z51.81 Encounter for therapeutic drug level monitoring; Z79.01 Long term (current) use of anticoagulants | CPT/HCPCS: 85610; 99211 ==

== ENCOUNTER 2024-01-06 07:37 | Outpatient (REF) | payer MEDICARE, SELFPAY ==
[2024-01-07 07:49] LABS: Appearance Urine Clear; Color Urine Yellow; Glucose Urine UA Negative (Negative); Leukocyte Esterase Urine Negative (Negative); Nitrite Urine Negative (Negative); Specific Gravity - Urine <= 1.005 (1.005-1.025); Urine Blood Negative (Negative); Urine Ketones Negative (Negative); Urine Protein Negative (Neg-Trace)
== END 2024-01-06 07:38 | disposition home or self-care (01) ==
LOC: HO.HSH3W 07:37
PROVIDERS: Visit Provider Internal Medicine Medical Oncology
DX: Z02.2 Encounter for examination for admission to residential institution (principal); C61 Malignant neoplasm of prostate; G30.9 Alzheimer's disease, unspecified; F02.80 Dementia in other diseases classified elsewhere, unspecified severity, without behavioral disturbance, psychotic disturbance, mood disturbance, and anxiety
CPT/HCPCS: 81003

== ENCOUNTER 2024-01-07 06:47 | Outpatient (REF) | payer MEDICARE, SELFPAY ==
[2024-01-07 07:01] LABS: MANUAL DIFF FLAG NO
[2024-01-07 07:13] LABS: Basophils Percent Auto 0.3 % (0-2); Eosinophils Absolute Auto 0.2 X10*3/uL (0.0-0.4); Eosinophils Percent Auto 2.1 % (0-4); Hematocrit 41.7 % (42.0-52.0); Hemoglobin 14.3 g/dl (14.0-18.0); Imm Gran Abs Auto 0.03 X10*3/uL (0.00-0.03); Imm Gran Pct Auto 0.3 % (0.0-0.4); Lymphocytes Absolute Auto 1.4 X10*3/uL (1.2-4.9); Lymphocytes Percent Auto 15.1 % (20-40); Mean Corpuscular HGB Conc 34.3 g/dl (31.0-36.0); Mean Corpuscular Hemoglobin 30.9 pg (27.0-33.0); Mean Corpuscular Volume 90.1 fL (80.0-98.0); Monocytes Absolute Auto 0.9 X10*3/uL (0.1-1.2); Monocytes Percent Auto 9.6 % (2-11); Neutrophils Absolute Auto 6.5 x10*3/uL (2.0-8.3); Neutrophils Percent Auto 72.6 % (45-73); Red Blood Count 4.63 X10*6/uL (4.60-5.80); White Blood Count 8.9 X10*3/uL (4.8-10.8)
[2024-01-07 07:14] LABS: Platelet Count 39 X10*3/uL (160-400)
[2024-01-07 07:16] LABS: INTERNATIONAL NORM RATIO 2.3 (0.9-1.1); Prothrombin Time 28.5 SEC (11.1-13.3)
[2024-01-07 07:31] LABS: Alanine Aminotransferase 21 U/L (0-40); Albumin Level 3.4 g/dL (3.5-5.0); Alkaline Phosphatase 119 U/L (39-117); Anion Gap 12 (12-20); Aspartate Amino Transferase 20 U/L (5-37); Bilirubin Total 0.5 mg/dL (0.0-1.0); Blood Urea Nitrogen 17 mg/dL (9-16); Calcium 8.9 mg/dL (8.4-10.2); Carbon Dioxide 25 mmol/L (22-29); Chloride 106 mmol/L (96-108); Cholesterol 163 mg/dL (<200); Estimated Glomerular Filt Rate > 60; Glucose Random 83 mg/dL (60-115); HDL Cholesterol 47 mg/dL (>40); LDL Cholesterol Calculated 97 mg/dL (<100); Potassium 3.7 mmol/L (3.3-5.1); Sodium 139 mmol/L (135-145); Total Protein 6.3 g/dL (6.5-8.0); Triglycerides 99 mg/dL (<150)
[2024-01-07 07:51] LABS: Prostate Specific Antigen 1.71 ng/mL (<0.05-4.0)
[2024-01-10 00:23] LABS: TS Negative Control Passed; TS Panel A 0; TS Panel B 0; TS Positive Control Passed; TSpotTB Negative (Negative)
== END 2024-01-07 06:48 | disposition home or self-care (01) ==
LOC: HO.HSH3W 06:47
PROVIDERS: Visit Provider Internal Medicine Medical Oncology
DX: Z02.2 Encounter for examination for admission to residential institution (principal); Z12.5 Encounter for screening for malignant neoplasm of prostate; Z13.6 Encounter for screening for cardiovascular disorders; C61 Malignant neoplasm of prostate; G30.0 Alzheimer's disease with early onset; F02.80 Dementia in other diseases classified elsewhere, unspecified severity, without behavioral disturbance, psychotic disturbance, mood disturbance, and anxiety
CPT/HCPCS: 36415; 80053; 80061; 84153; 85025; 85610; 86481

== ENCOUNTER 2024-01-13 06:44 | Outpatient (REF) | payer MEDICARE, SELFPAY ==
[2024-01-13 07:36] LABS: INTERNATIONAL NORM RATIO 2.2 (0.9-1.1)
[2024-01-13 07:47] LABS: Estimated Average Glucose 105 mg/dL; Hemoglobin A1c % 5.3 % (<6.0)
[2024-01-17 17:02] LABS: VITAMIN D (1,25 OH) D3 23 pg/mL; Vit D (1,25-Dihydroxy) Total 23 pg/mL (18-72); Vitamin D (1,25 OH) D2 <8 pg/mL
== END 2024-01-13 06:45 | disposition home or self-care (01) ==
LOC: HO.HSH3W 06:44
PROVIDERS: Visit Provider Nurse Practitioner Acute Care
DX: I49.1 Atrial premature depolarization (principal); E55.9 Vitamin D deficiency, unspecified; R73.03 Prediabetes
CPT/HCPCS: 36415; 82652; 83036; 85610

== ENCOUNTER 2024-01-13 13:12 | Outpatient (AMB) | payer MEDICARE, SELFPAY ==
--- NOTE | 2024-01-13 13:12 | A.OFFVIS_ITS ---
Intake Intake Visit Reasons: PSA f/u Intake Note: Patient is Present for Follow Up PSA Urology Med: Doxazosin, Finasteride Antibiotic Allergy: None Blood Thinner: Warfarin Fruit Shipper Required: No Accompanied by: Home Allergies dexamethasone [From Decadron] Allergy (Intermediate, Verified 12/28/23 11:15) ITCHING/RASH paroxetine [From PAXIL] Allergy (Unknown, Verified 12/28/23 11:15) UNKNOWN venlafaxine [From EFFEXOR] Allergy (Unknown, Verified 12/28/23 11:15) UNKNOWN decadron Allergy (Unknown, Uncoded 12/28/23 11:15) rash HPI HPI Comments History of Present Illness Details 01/13/24--Satya is a 73 yo male. He is a p atient of Dr. Arreola. He is seen for the following urologic conditions - prostate cancer, h/o frontal lobe dem entia c/o's of urinary frequency. Spoke with the patient's . PSA 01/07/24--1.71 Review of chart Prostate cancer - low-grade, low volume Prior biopsy with Jj 6, 1 core 5% was on active surveillance then cyclic 5AR 01/13/24--Plan--prompted voided q 3 hrs recommend trial Myrbetriq 25 mg check bladder scan PVR after 7 days FU PSA in 6 months, cont finesteride PFS Medical History Cognitive dysfunction External hemorrhoids with complication Mild cognitive impairment with memory loss Depression Essential hypertension COPD (chronic obstructive pulmonary disease) Paroxysmal atrial fibrillation HLD (hyperlipidemia) Persistent atrial fibrillation Surgical History Hx of cystoscopy Hx of colonoscopy History of prostate biopsy History of cardiac radiofrequency ablation Family History Father CVD (cardiovascular disease) Mother Cancer Afib Social History Are you a primary child care lead teacher to a significant other at home: No Alcohol intake: current Alcohol intake frequency: does not drink Alcohol type: other Patient Tobacco Use Status: Former Tobacco user Quit Date: 2007 Tobacco use type: Cigarette Cigarette Packs Per Day: 1 Review of Systems Const All systems reviewed & are unremarkable except as noted in HPI and below Reports no additional complaints Eyes Reports no additional complaints ENT Reports no additional complaints Card Reports no additional complaints Resp Reports no additional complaints GI Reports no additional complaints Reports as per HPI Musc Reports no additional complaints Skin/Breast Reports system reviewed and no additional complaints, except as documented Neuro Reports no additional complaints Psych Reports no additional complaints Endo Reports no additional complaints Torrey/Lymph Reports no additional complaints Aller/Immun Reports no additional complaints Results Reviewed Results Reviewed: 01/07/24-[address]: ORDERED: PSA Test Result Flag Reference PSA 1.71 Assessment & Plan Assessment & Plan (1) Prostate cancer: Comment: Low Grade Code(s): C61 - Malignant neoplasm of prostate (2) Urinary frequency: Code(s): R35.0 - Frequency of micturition (3) Dementia: Code(s): F03.90 - Unspecified dementia, unspecified severity, without behavioral disturbance, psychotic disturbance, mood disturbance, and anxiety Plan Prompted voided q 3 hrs recommend trial Myrbetriq 25 mg check bladder scan PVR after 7 days FU PSA in 6 months, cont finesteride Coding Level of Care Code 50766-[id number] Fac sub, mod Diagnoses Prostate cancer C61 Urinary frequency R35.0 Dementia F03.90
== END 2024-01-13 16:22 | disposition home or self-care (01) ==
LOC: HO.HUSV 13:12
PROVIDERS: PCP Internal Medicine; Visit Provider Urology
DX: C61 Malignant neoplasm of prostate (principal); R35.0 Frequency of micturition; F03.90 Unspecified dementia, unspecified severity, without behavioral disturbance, psychotic disturbance, mood disturbance, and anxiety
CPT/HCPCS: 99309

== ENCOUNTER 2024-03-01 15:02 | Inpatient (IN) | payer MEDICARE, SELFPAY ==
[2024-03-01] VITALS (14 sets, daily range): BP systolic 98–146; BP diastolic 60–102; PULSE 79–142; RESP 15–23; TEMP 36.1–36.9; O2SAT 94–99; BMI 27.5
--- NOTE | 2024-03-01 | ECG_ITS ---
Test Reason : RAPID A-FLUTTER Blood Pressure : / mmHG Vent. Rate : 121 BPM Atrial Rate : 308 BPM P-R Int : 000 ms QRS Dur : 072 ms QT Int : 332 ms P-R-T Axes : 000 096 068 degrees QTc Int : 471 ms Atrial flutter with variable A-V block Rightward axis Pulmonary disease pattern Nonspecific ST abnormality Abnormal ECG When compared with ECG of 01-MAR-2024 15:20, No significant changes seen ST no longer elevated in Inferior leads ST now depressed in Anterior leads Referred By: Savannah Reis Electronically Signed By:THERESA ROCHA MD
--- NOTE | ~2024-03-01 | XR_ITS ---
EXAMINATION: XR CHEST CLINICAL INFORMATION: Weakness. COMPARISON: Chest radiograph 05/27/2021. TECHNIQUE: Frontal view of the chest was obtained. FINDINGS: Stable appearance of the cardiomediastinal silhouette. Unchanged asymmetric elevation of the right hemidiaphragm. Similar degree of mildly increased bilateral interstitial markings. No focal consolidation. No pleural effusion or pneumothorax. No acute osseous findings. XR/XR chest 1V IMPRESSION: No acute cardiopulmonary findings.
--- NOTE | 2024-03-01 16:18 | ED_ITS ---
HPI - Arrhythmia/Palpitations General Chief Complaint: Arrhythmia/Palpitations Stated Complaint: PER STAFF SOB PER EMS Time Seen by Provider: 03/01/24 16:01 Source: patient, family and EMS Mode of arrival: EMS Limitations: no limitations History of Present Illness HPI narrative: Patient is a 73-year-old male who presents to the emergency department via EMS coming from [facility], his Farrah is currently at bedside. Patient is unable to tell me clearly why he is here today. Per EMS and with confirmation of his , he has been increasingly tired over the past week. noticed him to be more tired today at the facility. She states that this is not typical of him. She decided to check his pulse at his wrist and it felt fast and irregular so she asked nursing staff to assess him. It was noted to be tachycardic by nursing staff at the facility; 120-130s, has a history of atrial fibrillation. Patient only complains of chronic lower back pain, reports that he typically takes Tylenol for the pain. When asked, he states it is no worse than usual. Patient's denies any knowledge of recent fevers, chills, URI symptoms known infection, she does state that he has chronic urinary frequency he has been followed by Urology for this due to ?prostate problems?. Patient denies chest pain, shortness of breath, abdominal pain, nausea, vomiting, dysuria, hematuria, constipation, diarrhea. Related Data Home Medications ?Medication ?Instructions ?Recorded ?Confirmed lorazepam 0.5 mg tablet 0.5 mg PO BID PRN Anxiety 10/05/20 03/01/24 multivitamin 1 tab PO DAILY 03/19/21 03/01/24 bupropion HCl 150 mg 24 hr tablet, 150 mg PO DAILY 04/26/21 03/01/24 extended release donepezil 10 mg tablet 10 mg PO DAILY 04/26/21 03/01/24 memantine 10 mg tablet 10 mg PO BID 04/26/21 03/01/24 tiotropium bromide 18 mcg capsule 1 cap inhalation DAILY 08/14/21 03/01/24 with inhalation device (Spiriva with HandiHaler) quetiapine 50 mg tablet 50 mg PO DAILY 11/02/23 03/01/24 acetaminophen 325 mg tablet 650 mg PO Q4H PRN Pain or Fever 03/01/24 03/01/24 albuterol sulfate 90 mcg/actuation 2 puff inhalation Q4H PRN 03/01/24 03/01/24 aerosol inhaler shortness of breath or wheezing apixaban 5 mg tablet (Eliquis) 5 mg PO Q12H 03/01/24 03/01/24 bisacodyl 10 mg rectal suppository 10 mg OH DAILY PRN Constipation 03/01/24 03/01/24 docusate sodium 100 mg capsule 100 mg PO DAILY PRN Constipation 03/01/24 03/01/24 magnesium hydroxide 400 mg/5 mL 30 ml PO DAILY PRN No BM in 3 days 03/01/24 03/01/24 oral suspension or 9 shifts and hardstool polyethylene glycol 3350 17 gram 17 g PO DAILY 03/01/24 03/01/24 oral powder packet sennosides 8.6 mg tablet (senna) 8.6 mg PO DAILY 03/01/24 03/01/24 sodium phosphates 19 gram-7 118 ml OH DAILY PRN No BM in 3 03/01/24 03/01/24 gram/118 mL enema (Fleet Enema) days or 9 shifts and hardstool sotalol 80 mg tablet 80 mg PO BID 03/01/24 03/01/24 Previous Rx's ?Medication ?Instructions ?Recorded fluticasone propionate 50 2 spray intranasal DAILY #16 grams 05/28/21 mcg/actuation nasal spray,suspension (Flonase Allergy Relief) atorvastatin 10 mg tablet 10 mg PO BEDTIME #90 tabs 08/05/23 doxazosin 4 mg tablet 4 mg PO BEDTIME 90 days #90 tabs 12/28/23 finasteride 5 mg tablet 5 mg PO DAILY 90 days #90 tabs 12/28/23 Allergies Allergy/AdvReac Type Severity Reaction Status Date / Time dexamethasone [From Decadron] Allergy Intermediate ITCHING/DELMY Verified 03/01/24 15:15 H paroxetine [From PAXIL] Allergy Unknown UNKNOWN Verified 03/01/24 15:15 venlafaxine [From EFFEXOR] Allergy Unknown UNKNOWN Verified 03/01/24 15:15 decadron Allergy Unknown rash Uncoded 12/28/23 11:15 Review of Systems 2 Review of Systems: Yes all other systems are reviewed and are negative PMFSH Past Medical History Attestation statement: The following information was validated with the patient. Source: old records reviewed Medical History Cognitive dysfunction External hemorrhoids with complication Mild cognitive impairment with memory loss Depression Essential hypertension COPD (chronic obstructive pulmonary disease) Paroxysmal atrial fibrillation HLD (hyperlipidemia) Persistent atrial fibrillation Surgical History Hx of cystoscopy Hx of colonoscopy History of prostate biopsy History of cardiac radiofrequency ablation Family History Family History Father CVD (cardiovascular disease) Mother Cancer Afib Social History Social History Are you a primary career development director to a significant other at home: No Alcohol intake: current Alcohol intake frequency: does not drink Alcohol type: other Patient Tobacco Use Status: Former Tobacco user Tobacco use type: Cigarette Cigarette Packs Per Day: 1 Smoked in Last 30 Days: No Use of substances other than those prescribed or required for medical reasons: No Advance Directives: No Advance Directives Information Provided: No Do you have a plan to hurt others: No Plan Nutrition Risks: No Nutritional Risk Physical Exam 2 Vital Signs: Vital Signs: Last Vital Signs Temp 97.8 F 03/01/24 22:00 Pulse 80 03/01/24 23:36 Resp 19 03/01/24 23:36 BP 137/97 H 03/01/24 23:09 Pulse Ox 94 03/01/24 23:36 O2 Del Method Room Air 03/01/24 23:36 O2 Flow Rate 95 03/01/24 19:17 BMI result Body Mass Index 27.5 Appearance: Alert.?Oriented to person, place and time. No acute distress.?Normal affect. Eyes: Pupils equal, round and reactive to light.? ENT: Pharynx normal.?? Neck: Normal inspection.? Neck supple.?? CVS: Heart sounds normal. Irregularly irregular heart rate and rhythm? Pulses normal.?? Respiratory: No respiratory distress.? Lung sounds clear to auscultation bilaterally?? Abdomen: Soft and non-tender. Normoactive bowel sounds. Skin: Skin warm and dry.? Normal skin color.? ?? Extremities: No lower extremity edema.? ? Neuro: Moves all extremities spontaneously. Sensation intact bilaterally. Ambulates with normal steady gait. Course Reevaluation(s) Reevaluation #1: After receiving diltiazem 20 mg IV push, heart rate decreased to 60-80 and has remained stable, remains in a flutter. Labs reveal a mild leukocytosis of 12.0, no anemia, baseline thrombocytopenia. Mild hypernatremia 146, chloride 110. BUN elevated at 22, creatinine at baseline 0.91. Alk-phos is elevated but consistent with baseline, LFTs otherwise within normal range. TSH within normal range. BNP 159, not consistent with acute CHF. High sensitive troponin within normal range, no acute ischemic changes on EKG. Chest x-ray is without acute pathology, no evidence of pneumonia or pulmonary congestion Reevaluation #2: On re-evaluation, noted again to be with increased rate back to 120-130s after approximately 2 hours of rate consistently 60-80s. At this time awaiting urinalysis. Consulted with Cardiology Dr. Randle to determine next step of treatment additional diltiazem IV push in initiation of drift versus oral sotalol. Recommends diltiazem infusion and admission, spoke with hospitalist, Dr. Rivas who accepts patient for admission Time: 19:08 Medications Administered Generic Name Dose Route Start Last Admin Trade Name Freq PRN Reason Stop Dose Admin Doxazosin Mesylate 4 mg 03/01/24 23:05 03/01/24 23:26 Doxazosin Mesylate 2 Mg Tablet PO 4 mg BEDTIME KRISHNA Administration Protocol Dextrose/Sodium Chloride 1,000 mls @ 80 mls/hr 03/01/24 21:15 03/01/24 21:54 D5ns IVCONT 03/02/24 09:14 80 mls/hr .[id number] KRISHNA Administration Sodium Chloride 3 ml 03/02/24 00:00 03/02/24 00:39 0.9 % Sodium Chloride Flush 3 Ml Syringe IVFLUSH Not Given QSHIFT KRISHNA Sotalol HCl 80 mg 03/01/24 21:05 03/01/24 21:59 Sotalol Hcl 80 Mg Tablet PO 80 mg BID KRISHNA Administration Discontinued Medications Generic Name Dose Route Start Last Admin Trade Name Freq PRN Reason Stop Dose Admin Diltiazem HCl 20 mg 03/01/24 16:17 03/01/24 16:23 Diltiazem Hcl 50 Mg/10 Ml Vial IVPUSH 03/01/24 16:18 20 mg STAT STA Administration Diltiazem HCl 20 mg 03/01/24 19:05 03/01/24 19:14 Diltiazem Hcl 50 Mg/10 Ml Vial IVPUSH 03/01/24 19:06 20 mg STAT STA Administration Sodium Chloride 1,000 mls @ 999 mls/hr 03/01/24 19:30 03/01/24 20:42 Ns IV 03/01/24 20:30 Infused .Q1H1M KRISHNA Infusion Medical Decision Making Medical Decision Making MDM Narrative: Patient is a 73-year-old male with past medical history of Alzheimer's disease, depression, hypertension, COPD, hyperlipidemia, paroxysmal atrial fibrillation on Eliquis and sotalol presenting to emergency department for evaluation after a week of increased lethargy and tachycardia with EKG at facility revealing atrial flutter. Initial EKG in the department consistent with atrial flutter, rate noted to be as high as 140s, normal QRS complex, no ST elevation, no ST depression, QTC 483. I reviewed recent EKG from his facility 01/08/2024 revealing a normal sinus rhythm consistent with prior EKGs from our medical record as well. Will obtain CBC to evaluate for leukocytosis/ anemia, CMP and lipase to evaluate for abnormal electrolytes /abnormal renal function/ abnormal hepatic/biliary function, EKG and troponin to evaluate for ischemia/ACS. Chest x-ray to evaluate for consolidation/ infiltrate/ mass/ pulmonary congestion and Urinalysis. Patient received diltiazem 20 mg IV push and reassess Differential Diagnosis Differential Diagnoses: The differential diagnosis associated with the presentation includes (See narrative above) Admission/Observation Consideration of admission/observation: Escalation of care including admission/observation considered (See course narrative) Consult Healthcare Provider Management of the patient was discussed with: Shot Polisher And Inspector (Cardiology, see course narrative) Lab Data MDM Lab Attestation statement: I reviewed the patient's lab results. (See course narrative) 03/01/24 16:15 03/01/24 16:15 Labs: Lab Results 03/01/24 03/01/24 Range/Units 16:15 18:46 WBC 12.0 H (4.8-10.8) X10*3/uL RBC 5.41 (4.60-5.80) X10*6/uL Hgb 16.7 (14.0-18.0) g/dl Hct 48.6 (42.0-52.0) % MCV 89.8 (80.0-98.0) fL MCH 30.9 (27.0-33.0) pg MCHC 34.4 (31.0-36.0) g/dl RDW 14.0 (11.0-16.0) % Plt Count 45 L (160-400) X10*3/uL MPV 12.8 H (9.4-12.4) fL Immature Gran % (Auto) 0.6 H (0.0-0.4) % Neut % (Auto) 74.7 H (45-73) % Lymph % (Auto) 12.6 L (20-40) % [place] % (Auto) 11.0 (2-11) % Eos % (Auto) 0.9 (0-4) % Baso % (Auto) 0.2 (0-2) % Lymph # (Auto) 1.5 (1.2-4.9) X10*3/uL [place] # (Auto) 1.3 H (0.1-1.2) X10*3/uL Eos # (Auto) 0.1 (0.0-0.4) X10*3/uL Baso # (Auto) 0.0 (0.0-0.2) X10*3/uL Abs Immat Gran (auto) 0.07 H (0.00-0.03) X10*3/uL Absolute Neuts (auto) 9.0 H (2.0-8.3) x10*3/uL Absolute Nucleated RBC 0.000 (0.0-0.012) X10*3/uL Nucleated RBC % (auto) 0.0 (0.0-0.2) /100WBC Smear Tech's Comments VERIFIED PT 15.1 H D (11.1-13.3) SEC INR 1.2 H (0.9-1.1) Sodium 146 H (135-145) mmol/L Potassium 4.1 (3.3-5.1) mmol/L Chloride 110 H (96-108) mmol/L Carbon Dioxide 27 (22-29) mmol/L Anion Gap 13 (12-20) BUN 22 H (9-16) mg/dL Creatinine 0.91 (0.5-1.4) mg/dL Estim Creat Clear Calc 69.9 Estimated GFR > 60 Random Glucose 75 (60-115) mg/dL Calcium 9.3 (8.4-10.2) mg/dL Magnesium 2.2 (1.6-2.6) mg/dL Total Bilirubin 0.6 (0.0-1.0) mg/dL Direct Bilirubin 0.2 (0.0-0.5) mg/dL AST 18 (5-37) U/L ALT 23 (0-40) U/L Alkaline Phosphatase 153 H (39-117) U/L Troponin I High Sens 7.8 (<3.5-35.0) ng/L B-Natriuretic Peptide 159 H (<100) pg/mL Total Protein 6.8 (6.5-8.0) g/dL Albumin 3.5 (3.5-5.0) g/dL Lipase 28 (8-78) U/L TSH 1.73 (0.32-4.0) uIU/mL Urine Color Yellow Urine Appearance Clear Urine pH 6.0 (5.0-9.0) Ur Specific [place] 1.015 (1.005-1.025) Urine Protein Negative (Neg-Trace) mg/dL Urine Glucose (UA) Negative (Negative) mg/dL Urine Ketones Negative (Negative) mg/dL Urine Blood Negative (Negative) Urine Nitrite Negative (Negative) Ur Leukocyte Esterase Negative (Negative) Independent Interpretation I performed an independent interpretation of an: EKG (See narrative above) and Plain X-Ray (See course narrative) Radiology Impression Discussion of test interpretation with radiology: I have reviewed the radiologist's reading. Radiologist Impression: XR/XR chest 1V IMPRESSION: No acute cardiopulmonary findings. Independent Historian Clinical information obtained from an independent historian. History obtained from or confirmed by: Spouse (As per HPI) and EMS External Record Review External record reviewed: Outpatient record (As per HPI) Critical Care Time Critical Care Time Critical Care Time: Yes Total Critical Care Time: 35 Attestation: I personally attest to this critical care time spent taking care of the patient exclusive of all other billable procedures was approximately 35 minutes including initial evaluation of patient, ordering tests, x-ray interpretation, EKG interpretation, IV diltiazem and re-evaluation, medical consultation, documentation, re-evaluation. Discharge Plan Discharge Clinical Impression: Atrial flutter with rapid ventricular response Patient Disposition: Admitted As Inpatient
[2024-03-01 16:22] LABS: Hematocrit 48.6 % (42.0-52.0); SCAN SMEAR FLAG 1
[2024-03-01] MEDS: dilTIAZem HCL 50 MG/10 ML VIAL 20 MG IVPUSH ×2 (16:23→19:14)
[2024-03-01 16:24] LABS: Basophils Percent Auto 0.2 % (0-2); Eosinophils Absolute Auto 0.1 X10*3/uL (0.0-0.4); Eosinophils Percent Auto 0.9 % (0-4); Hemoglobin 16.7 g/dl (14.0-18.0); Imm Gran Abs Auto 0.07 X10*3/uL (0.00-0.03); Imm Gran Pct Auto 0.6 % (0.0-0.4); Lymphocytes Absolute Auto 1.5 X10*3/uL (1.2-4.9); Lymphocytes Percent Auto 12.6 % (20-40); Mean Corpuscular HGB Conc 34.4 g/dl (31.0-36.0); Mean Corpuscular Hemoglobin 30.9 pg (27.0-33.0); Mean Corpuscular Volume 89.8 fL (80.0-98.0); Mean Platelet Volume 12.8 fL (9.4-12.4); Monocytes Absolute Auto 1.3 X10*3/uL (0.1-1.2); Neutrophils Percent Auto 74.7 % (45-73); Red Blood Count 5.41 X10*6/uL (4.60-5.80)
[2024-03-01 16:32] LABS: PLT ABN DIST 1; Platelet Count 45 X10*3/uL (160-400)
[2024-03-01 16:33] LABS: INTERNATIONAL NORM RATIO 1.2 (0.9-1.1); Prothrombin Time 15.1 SEC (11.1-13.3)
[2024-03-01 16:36] LABS: MANUAL DIFF FLAG NO; SLIDE REVIEW VERIFIED
[2024-03-01 16:47] LABS: B Type Natriuretic Peptide 159 pg/mL (<100)
[2024-03-01 16:50] LABS: Alanine Aminotransferase 23 U/L (0-40); Albumin Level 3.5 g/dL (3.5-5.0); Alkaline Phosphatase 153 U/L (39-117); Anion Gap 13 (12-20); Aspartate Amino Transferase 18 U/L (5-37); Bilirubin Direct 0.2 mg/dL (0.0-0.5); Bilirubin Total 0.6 mg/dL (0.0-1.0); Blood Urea Nitrogen 22 mg/dL (9-16); Calcium 9.3 mg/dL (8.4-10.2); Carbon Dioxide 27 mmol/L (22-29); Chloride 110 mmol/L (96-108); Creatinine Clr Calc Pharmacy 69.9; Estimated Glomerular Filt Rate > 60; Glucose Random 75 mg/dL (60-115); Lipase 28 U/L (8-78); Magnesium 2.2 mg/dL (1.6-2.6); Potassium 4.1 mmol/L (3.3-5.1); Sodium 146 mmol/L (135-145); Total Protein 6.8 g/dL (6.5-8.0)
[2024-03-01 16:53] LABS: Troponin-I High Sensitivity 7.8 ng/L (<3.5-35.0)
[2024-03-01 17:07] LABS: TSH reflex Free T4 1.73 uIU/mL (0.32-4.0)
[2024-03-01 19:04] LABS: Appearance Urine Clear; Color Urine Yellow; Glucose Urine UA Negative (Negative); Leukocyte Esterase Urine Negative (Negative); Nitrite Urine Negative (Negative); Specific Gravity - Urine 1.015 (1.005-1.025); Urine Blood Negative (Negative); Urine Ketones Negative (Negative); Urine Protein Negative (Neg-Trace)
--- NOTE | 2024-03-01 19:27 | PC.NURSE ---
hopding drip at this time due to HR under 90 HR 83
[2024-03-01] MEDS: 0.9 % Sodium Chloride 1,000 ML 999 ML IV (19:28)
--- NOTE | 2024-03-01 21:02 | PM.IMHP ---
History of Present Illness Date of Service: 03/01/24 Attending physician on admission: Meliton Rosales Chief Complaint: Confusion Satya Back is a 73 years old man with past medical history significant for atrial flutter on warfarin, COPD-no home oxygen, dementia on memantine and donepezil and hyperlipidemia was brought to the emergency department from [facility] due to increased lethargy and elevated heart rate. According to ED provider, patient's stated that the patient has been having fatigue and lethargy for 1 week. The patient has dementia and is unaware why he has in the hospital. However he was able to answer many of my questions appropriately. He knows that he has in the hospital but does not know the year. He denied any chest pain, shortness on breath or palpitations. He also denies headache, dizziness, abdominal pain, nausea, vomiting or diarrhea. In the ED, he was found to have rapid atrial fibrillation, the rest of the vital signs are normal. Blood workup is remarkable for mild leukocytosis of 12.0. Hemoglobin and platelets are normal. Sodium is elevated 146 and hyperchloremia. There are no other significant electrolyte imbalances. Renal function is adequate and LFTs are normal. BNP is 159 and troponin 7.8. UA is negative for infection. CXR is negative for acute changes. ECG stat showed atrial flutter with variable AV block, right axis deviation and nonspecific ST changes. ED tx: Diltiazem 20 mg IV x2, NS 1 L bolus Review of Systems Review of Systems: All 12 systems were reviewed and normal except as noted in HPI. [facility] Medical History Cognitive dysfunction External hemorrhoids with complication Mild cognitive impairment with memory loss Depression Essential hypertension COPD (chronic obstructive pulmonary disease) Paroxysmal atrial fibrillation HLD (hyperlipidemia) Persistent atrial fibrillation Family History Father CVD (cardiovascular disease) Mother Cancer Afib Surgical History Hx of cystoscopy Hx of colonoscopy History of prostate biopsy History of cardiac radiofrequency ablation Social History Are you a primary patient care assistant to a significant other at home: No Alcohol intake: current Alcohol intake frequency: does not drink Alcohol type: other Patient Tobacco Use Status: Former Tobacco user Tobacco use type: Cigarette Cigarette Packs Per Day: 1 Smoked in Last 30 Days: No Use of substances other than those prescribed or required for medical reasons: No Advance Directives: No Advance Directives Information Provided: No Do you have a plan to hurt others: No Plan Meds Allergies Allergy/AdvReac Type Severity Reaction Status Date / Time dexamethasone [From Decadron] Allergy Intermediate ITCHING/DELMY Verified 03/01/24 15:15 H paroxetine [From PAXIL] Allergy Unknown UNKNOWN Verified 03/01/24 15:15 venlafaxine [From EFFEXOR] Allergy Unknown UNKNOWN Verified 03/01/24 15:15 decadron Allergy Unknown rash Uncoded 12/28/23 11:15 Active Medications: Current Medications Acetaminophen (Acetaminophen 325 Mg Tablet) 650 mg PO Q6H PRN PRN Reason: Pain, Mild (Pain Scale 1-3), fever or headache Diltiazem HCl 125 mg/ Sodium (Chloride) 125 mls @ 0 mls/hr IVCONT .Q0M KRISHNA; Protocol Sodium Chloride (0.9 % Sodium Chloride Flush 3 Ml Syringe) 3 ml IVFLUSH QSHIFT KRISHNA Warfarin Sodium (Warfarin Sodium 5 Mg Tablet) 5 mg PO ONCE@1800 KRISHNA Home Medications ?Medication ?Instructions ?Recorded ?Confirmed ?Last Taken ?Type lorazepam 0.5 mg tablet 0.5 mg PO BEDTIME PRN Anxiety 10/05/20 12/28/23 05/26/21 History acetaminophen 500 mg capsule 500 mg PO Q6H PRN Pain 03/19/21 12/28/23 Unknown History albuterol sulfate 90 mcg/actuation 2 puff inhalation Q4-6H PRN 03/19/21 12/28/23 Unknown History aerosol inhaler (Ventolin HFA) Wheezing multivitamin 1 tab PO DAILY 03/19/21 12/28/23 05/27/21 History bupropion HCl 150 mg 24 hr tablet, 150 mg PO QAM 04/26/21 12/28/23 08/20/21 History extended release donepezil 10 mg tablet 10 mg PO DAILY@1700 04/26/21 12/28/23 05/27/21 History memantine 10 mg tablet 10 mg PO BID 04/26/21 12/28/23 08/20/21 History tiotropium bromide 18 mcg capsule 1 cap inhalation DAILY 08/14/21 12/28/23 08/20/21 History with inhalation device (Spiriva with HandiHaler) docusate sodium 50 mg capsule 50 mg PO DAILY PRN 05/28/22 12/28/23 Unknown History quetiapine 50 mg tablet 50 mg PO BID 11/02/23 12/28/23 Unknown History sotalol 80 mg tablet 80 mg PO BID 03/01/24 03/01/24 Unknown History Physical Exam Vital Signs and Narrative: Vital Signs: Last Vital Signs Temp 98.4 F 03/01/24 19:43 Pulse 79 03/01/24 20:04 Resp 20 03/01/24 20:04 BP 98/68 03/01/24 19:43 Pulse Ox 95 03/01/24 20:04 O2 Del Method Room Air 03/01/24 20:04 O2 Flow Rate 95 03/01/24 19:17 BMI result Body Mass Index 27.5 Constitutional - Awake and Alert, No apparent distress. Confused. Pleasant. HEENT - PERRLA, EOMI. Dry oral mucosa. Heart - Tachycardic, irregular. Lungs - Normal lung expansion, Normal respiratory effort, No respiratory distress, CTA bilaterally Abdomen- NT / ND; +BS; No rebound or guarding Extremities - no calf tenderness bilaterally, no swelling Musculoskeletal - Normal inspection, normal ROM Skin - Warm/Dry Neurological - Alert & oriented x2. No focal weakness grossly noted. No facial droop. Normal speech. Confused at times. Psychological - No agitation. Results Labs 03/01/24 16:15 03/01/24 16:15 Labs: Laboratory Results - last 24 hr 03/01/24 03/01/24 16:15 18:46 MCV 89.8 MCH 30.9 MCHC 34.4 RDW 14.0 Plt Count 45 L MPV 12.8 H Immature Gran % (Auto) 0.6 H Neut % (Auto) 74.7 H Lymph % (Auto) 12.6 L [place] % (Auto) 11.0 Eos % (Auto) 0.9 Baso % (Auto) 0.2 Lymph # (Auto) 1.5 [place] # (Auto) 1.3 H Eos # (Auto) 0.1 Baso # (Auto) 0.0 Abs Immat Gran (auto) 0.07 H Absolute Neuts (auto) 9.0 H Absolute Nucleated RBC 0.000 Nucleated RBC % (auto) 0.0 Smear Tech's Comments VERIFIED PT 15.1 H D INR 1.2 H Anion Gap 13 Estim Creat Clear Calc 69.9 Estimated GFR > 60 Random Glucose 75 Calcium 9.3 Magnesium 2.2 Total Bilirubin 0.6 Direct Bilirubin 0.2 AST 18 ALT 23 Alkaline Phosphatase 153 H Troponin I High Sens 7.8 B-Natriuretic Peptide 159 H Total Protein 6.8 Albumin 3.5 Lipase 28 TSH 1.73 Urine Color Yellow Urine Appearance Clear Urine pH 6.0 Ur Specific [place] 1.015 Urine Protein Negative Urine Glucose (UA) Negative Urine Ketones Negative Urine Blood Negative Urine Nitrite Negative Ur Leukocyte Esterase Negative Imaging Radiologist's Impressions: Impressions Chest X-Ray 03/01/24 16:10 IMPRESSION: No acute cardiopulmonary findings. Assessment and Plan (1) Atrial flutter with rapid ventricular response: Status: Acute (2) Hypernatremia: Status: Acute Plan Satya Back is a 73 y/o man admitted with: Atrial flutter with rapid ventricular response likely triggered by dehydration. Admit to hospitalist service. Telemetry. Pulse oximetry. Gentle IV fluids. Continue sotalol 80 mg p.o. daily (QT is not prolonged). Hold warfarin due to thrombocytopenia as this would increase his risk of spontaneous bleeding. Cardiology consult. Acute encephalopathy likely secondary to hypernatremia due to likely poor p.o. intake of water. Start IV fluid with D5. Continue to monitor Na+ level. Fall precautions. COPD. No acute exacerbation. Continue home inhalers. Dementia. Continue home medications. Hyperlipidemia. Continue statin. BPH. Continue home medications. Code status: Full DVT prophylaxis: SCDs. GI prophylaxis: PPI. Patient will need hospitalization for at least 2 midnights for rapid atrial flutter treatment with antiarrhythmic agents and continuous cardiac monitoring. Patient will also need hydration and monitoring of sodium level. Quality Stroke Does the patient have a stroke diagnosis?: No VTE Prior VTE?: No VTE Risk Level:: Medical - moderate - high VTE Device Contraindication: Treatment Not Indicated VTE Drug Contraindication: N/A - Med Ordered
--- NOTE | 2024-03-01 21:16 | PC.NURSE ---
dilt drip discontinued by provider
[2024-03-01] MEDS: Dextrose 5 % and 0.9 % NaCl 1,000 ML 80 ML IVCONT (21:54)
[2024-03-01] MEDS: Sotalol HCL 80 MG TABLET PO (21:59)
--- NOTE | 2024-03-01 22:31 | PC.NURSE ---
let provider know about HR
--- NOTE | 2024-03-01 22:49 | PHA.MEDREC ---
Pharmacy Consult ? Medication Reconciliation Pharmacy has completed the medication reconciliation. Confirmed med[facility]. Tried talking with patient to see if he knew when he last took his Eliquis and Patient could not remember.
[2024-03-01] MEDS: Doxazosin Mesylate 2 MG TABLET 4 MG PO (23:26)
--- NOTE | 2024-03-01 23:47 | PC.NURSE ---
Pt comes from [facility] with increasing fatigue and HR. Pt presented to ED with aflutter HR 138. PMH- aflutter on Coumadin, copd, dementia, htn, depression. Cardizem 40mg IV total , bed rest , cardiac diets, hold comadin as plt -45. Held drip of Cardizem per provider as sotalol was ordered with dextrose and 0.9 @80ml/hr. pt rate controlled at this time . IV 20 R. hand . Pt is pleasantly confused at baseline Plan per hospitalist: Atrial flutter with rapid ventricular response likely triggered by dehydration. Admit to hospitalist service. Telemetry. Pulse oximetry. Gentle IV fluids. Continue sotalol 80 mg p.o. daily (QT is not prolonged). Hold warfarin due to thrombocytopenia as this would increase his risk of spontaneous bleeding. Cardiology consult. Acute encephalopathy likely secondary to hypernatremia due to likely poor p.o. intake of water. Start IV fluid with D5. Continue to monitor Na+ level. Fall precautions. COPD. No acute exacerbation. Continue home inhalers. Dementia. Continue home medications. Hyperlipidemia. Continue statin. BPH. Continue home medications.
[2024-03-02] VITALS (10 sets, daily range): BP systolic 104–162; BP diastolic 60–98; PULSE 81–136; RESP 16–20; TEMP 36–36.9; O2SAT 93–98; BMI 26.9
--- NOTE | 2024-03-02 | ECG_ITS ---
Test Reason : tachycardia Blood Pressure : / mmHG Vent. Rate : 086 BPM Atrial Rate : 086 BPM P-R Int : 188 ms QRS Dur : 078 ms QT Int : 398 ms P-R-T Axes : 077 102 075 degrees QTc Int : 476 ms Normal sinus rhythm Rightward axis Low voltage QRS Borderline ECG When compared with ECG of 02-MAR-2024 08:05, Sinus rhythm has replaced Atrial flutter Referred By: Savannah Reis Electronically Signed By:THERESA ROCHA MD
[2024-03-02] MEDS: Omeprazole 40 MG CAPSULE.DR PO (05:54)
[2024-03-02 06:31] LABS: MANUAL DIFF FLAG NO
[2024-03-02 06:44] LABS: Basophils Percent Auto 0.3 % (0-2); Eosinophils Absolute Auto 0.1 X10*3/uL (0.0-0.4); Eosinophils Percent Auto 1.2 % (0-4); Hematocrit 45.7 % (42.0-52.0); Hemoglobin 15.4 g/dl (14.0-18.0); Imm Gran Abs Auto 0.06 X10*3/uL (0.00-0.03); Imm Gran Pct Auto 0.6 % (0.0-0.4); Lymphocytes Absolute Auto 1.4 X10*3/uL (1.2-4.9); Lymphocytes Percent Auto 14.1 % (20-40); Mean Corpuscular HGB Conc 33.7 g/dl (31.0-36.0); Mean Corpuscular Hemoglobin 30.4 pg (27.0-33.0); Mean Corpuscular Volume 90.3 fL (80.0-98.0); Mean Platelet Volume 13.2 fL (9.4-12.4); Monocytes Percent Auto 10.2 % (2-11); Neutrophils Absolute Auto 7.3 x10*3/uL (2.0-8.3); Neutrophils Percent Auto 73.6 % (45-73); Red Blood Count 5.06 X10*6/uL (4.60-5.80); Red Cell Distribution Width 13.9 % (11.0-16.0); White Blood Count 9.9 X10*3/uL (4.8-10.8)
[2024-03-02 06:45] LABS: Platelet Count 39 X10*3/uL (160-400)
[2024-03-02 07:00] LABS: Anion Gap 13 (12-20); Blood Urea Nitrogen 17 mg/dL (9-16); Calcium 8.6 mg/dL (8.4-10.2); Carbon Dioxide 21 mmol/L (22-29); Chloride 112 mmol/L (96-108); Creatinine Clr Calc Pharmacy 74.8; Estimated Glomerular Filt Rate > 60; Glucose Random 92 mg/dL (60-115); Sodium 142 mmol/L (135-145)
--- NOTE | 2024-03-02 07:51 | ECG_ITS ---
Test Reason : a flutter Blood Pressure : / mmHG Vent. Rate : 095 BPM Atrial Rate : 315 BPM P-R Int : 000 ms QRS Dur : 064 ms QT Int : 380 ms P-R-T Axes : 000 099 065 degrees QTc Int : 477 ms Atrial flutter with variable A-V block Rightward axis Low voltage QRS Abnormal ECG When compared with ECG of 01-MAR-2024 21:03, Non-specific change in ST segment in Inferior leads Referred By: Savannah Reis Electronically Signed By:THERESA ROCHA MD
[2024-03-02] MEDS: Tiotropium Bromide 2.5 mcg 1 PUFF/2.5 MCG MIST.INHAL 2 PUFF INHALE (08:19)
[2024-03-02] MEDS: Multivitamin TABLET 1 TAB PO (09:09)
[2024-03-02] MEDS: Sennosides 8.6 MG TABLET PO (09:09)
[2024-03-02] MEDS: buPROPion HCl XL 150 MG TAB.ER.24H PO (09:09)
[2024-03-02] MEDS: Memantine HCl 10 MG TABLET PO ×2 (09:09→22:22)
[2024-03-02] MEDS: Finasteride 5 MG TABLET PO (09:09)
[2024-03-02] MEDS: Sotalol HCL 80 MG TABLET PO ×2 (09:09→22:21)
[2024-03-02] MEDS: 0.9 % Sodium Chloride Flush 3 ML SYRINGE IVFLUSH ×3 (09:10→22:28)
--- NOTE | 2024-03-02 09:38 | MHC.CM.PN ---
IMM 03/02. Pt with dx: dementia, CM intake assessment completed and IMM addressed with pts /HCP Sarita at [phone]. [facility] [place] Discharge plan will be for him to return there via BLS. HCP on file and verified. PCP: Dr. Breezy Arreola
[2024-03-02] MEDS: Digoxin 0.5 MG/2 ML AMPUL 0.125 MG IVPUSH (10:02)
[2024-03-02] MEDS: Metoprolol Tartrate 25 MG TABLET PO (10:03)
--- NOTE | 2024-03-02 10:49 | P.CONCA_ITS ---
History of Present Illness History of Present Illness Date of Service: 03/02/24 Requesting physician: Savannah Reis Consult reason: other (Atrial flutter) Chief complaint: Rapid a-flutter, hypernatremia Narrative: I was consulted to see Satya in cardiology consultation today for atrial flutter with rapid ventricular response. Patient is a 73-year-old male unfortunately with advanced cognitive dysfunction related to Alzheimer's dementia, prior paroxysmal atrial fibrillation has been suppressed on sotalol for many years and has done well overall, COPD, hyperlipidemia on Eliquis for oral anticoagulation therapy. Patient is currently a detention facility resident and was referred from the detention facility due to altered mental status. On presentation patient was noted to have mild hyponatremia and was noted to have atrial flutter with rapid ventricular response and mild leukocytosis. There were no localizing signs. Patient has no cardiovascular symptoms on asking him whether he is having any symptoms of palpitations or shortness of breath chest pain he denies. Exact onset of his atrial flutter is unclear. He is currently on sotalol and continue sotalol therapy on admission. He did receive a dose of metoprolol. His Eliquis was withheld last night due to thrombocytopenia which has been noticed since November of this year. No obvious bleeding complications. No obvious focal neurologic deficits were noted. Review of Systems 2 Review of Systems: Yes Unobtainable due to mental status Neurologic: Reports confusion Psychiatric: Psychiatric: Reports confusion PMFSH Past Medical History Medical History Cognitive dysfunction External hemorrhoids with complication Mild cognitive impairment with memory loss Depression Essential hypertension COPD (chronic obstructive pulmonary disease) Paroxysmal atrial fibrillation HLD (hyperlipidemia) Persistent atrial fibrillation Family History Family History Father CVD (cardiovascular disease) Mother Cancer Afib Surgical History Surgical History Hx of cystoscopy Hx of colonoscopy History of prostate biopsy History of cardiac radiofrequency ablation Social History Social History Are you a primary home health care case manager to a significant other at home: No Alcohol intake: current Alcohol intake frequency: does not drink Alcohol type: other Patient Tobacco Use Status: Former Tobacco user Tobacco use type: Cigarette Cigarette Packs Per Day: 1 e-Cigarette/Vaping Use: Never Used Second Hand Smoke Exposure: No service: Yes Meds Allergies Allergy/AdvReac Type Severity Reaction Status Date / Time dexamethasone [From Decadron] Allergy Intermediate ITCHING/DELMY Verified 03/01/24 15:15 H paroxetine [From PAXIL] Allergy Unknown UNKNOWN Verified 03/01/24 15:15 venlafaxine [From EFFEXOR] Allergy Unknown UNKNOWN Verified 03/01/24 15:15 decadron Allergy Unknown rash Uncoded 12/28/23 11:15 Active Medications: Current Medications Acetaminophen (Acetaminophen 325 Mg Tablet) 650 mg PO Q6H PRN PRN Reason: Pain, Mild (Pain Scale 1-3), fever or headache Atorvastatin Calcium (Atorvastatin Calcium 10 Mg Tablet) 10 mg PO BEDTIME KRISHNA Bisacodyl (Bisacodyl 10 Mg Supp.Rect) 10 mg [place] DAILY PRN PRN Reason: Constipation Bupropion HCl (Bupropion Hcl Xl 150 Mg Tab.Er.24h) 150 mg PO DAILY [facility] Last Admin: 03/02/24 09:09 Dose: 150 mg Digoxin (Digoxin 0.5 Mg/2 Ml Ampul) 0.125 mg IVPUSH Q6H [facility] Stop: 03/02/24 22:01 Last Admin: 03/02/24 10:02 Dose: 0.125 mg Docusate Sodium (Docusate Sodium 100 Mg Capsule) 100 mg PO DAILY PRN PRN Reason: Constipation Donepezil HCl (Donepezil Hcl 10 Mg Tablet) 10 mg PO BEDTIME [facility] Doxazosin Mesylate (Doxazosin Mesylate 2 Mg Tablet) 4 mg PO BEDTIME [facility]; Protocol Last Admin: 03/01/24 23:26 Dose: 4 mg Finasteride (Finasteride 5 Mg Tablet) 5 mg PO DAILY [facility] Last Admin: 03/02/24 09:09 Dose: 5 mg Fluticasone Propionate (Fluticasone Propionate Nasal 16 Gm [place]) 0 spray NOSTRIL-B DAILY [facility] Last Admin: 03/02/24 09:09 Dose: Not Given Lorazepam (Lorazepam 0.5 Mg Tablet) 0.5 mg PO BID PRN PRN Reason: Anxiety Memantine (Memantine Hcl 10 Mg Tablet) 10 mg PO BID [facility] Last Admin: 03/02/24 09:09 Dose: 10 mg Metoprolol Tartrate (Metoprolol Tartrate 25 Mg Tablet) 25 mg PO Q6H [facility]; Protocol Last Admin: 03/02/24 10:03 Dose: 25 mg Multivitamins/Vitamin C (Multivitamin Tablet) 1 tab PO DAILY [facility] Last Admin: 03/02/24 09:09 Dose: 1 tab Omeprazole (Omeprazole 40 Mg Capsule.Dr) 40 mg PO DAILY@0630 [facility] Last Admin: 03/02/24 05:54 Dose: 40 mg Polyethylene Glycol (Polyethylene Glycol 3350 17 Gm Powd.Pack) 17 gm PO DAILY [facility] Last Admin: 03/02/24 09:11 Dose: Not Given Quetiapine Fumarate (Quetiapine Fumarate 50 Mg Tablet) 50 mg PO BEDTIME [facility] Senna (Sennosides 8.6 Mg Tablet) 8.6 mg PO DAILY [facility] Last Admin: 03/02/24 09:09 Dose: 8.6 mg Sodium Chloride (0.9 % Sodium Chloride Flush 3 Ml Syringe) 3 ml IVFLUSH QSHIFT [facility] Last Admin: 03/02/24 09:10 Dose: 3 ml Tiotropium [place] (Tiotropium [place] 2.5 Mcg 1 Puff/2.5 Mcg Mist.Inhal) 2 puff INHALE RDAILY [facility] Last Admin: 03/02/24 08:19 Dose: 2 puff Home Medications ?Medication ?Instructions ?Recorded ?Confirmed ?Last Taken ?Type lorazepam 0.5 mg tablet 0.5 mg PO BID PRN Anxiety 10/05/20 03/01/24 05/26/21 History multivitamin 1 tab PO DAILY 03/19/21 03/01/24 05/27/21 History bupropion HCl 150 mg 24 hr tablet, 150 mg PO DAILY 04/26/21 03/01/24 08/20/21 History extended release donepezil 10 mg tablet 10 mg PO DAILY 04/26/21 03/01/24 05/27/21 History memantine 10 mg tablet 10 mg PO BID 04/26/21 03/01/24 08/20/21 History tiotropium bromide 18 mcg capsule 1 cap inhalation DAILY 08/14/21 03/01/24 08/20/21 History with inhalation device (Spiriva with HandiHaler) quetiapine 50 mg tablet 50 mg PO DAILY 11/02/23 03/01/24 Unknown History acetaminophen 325 mg tablet 650 mg PO Q4H PRN Pain or Fever 03/01/24 03/01/24 Unknown History albuterol sulfate 90 mcg/actuation 2 puff inhalation Q4H PRN 03/01/24 03/01/24 Unknown History aerosol inhaler shortness of breath or wheezing apixaban 5 mg tablet (Eliquis) 5 mg PO Q12H 03/01/24 03/01/24 Unknown History bisacodyl 10 mg rectal suppository 10 mg [place] DAILY PRN Constipation 03/01/24 03/01/24 Unknown History docusate sodium 100 mg capsule 100 mg PO DAILY PRN Constipation 03/01/24 03/01/24 Unknown History magnesium hydroxide 400 mg/5 mL 30 ml PO DAILY PRN No BM in 3 days 03/01/24 03/01/24 Unknown History oral suspension or 9 shifts and hardstool polyethylene glycol 3350 17 gram 17 g PO DAILY 03/01/24 03/01/24 Unknown History oral powder packet sennosides 8.6 mg tablet (senna) 8.6 mg PO DAILY 03/01/24 03/01/24 Unknown History sodium phosphates 19 gram-7 118 ml [place] DAILY PRN No BM in 3 03/01/24 03/01/24 Unknown History gram/118 mL enema (Fleet Enema) days or 9 shifts and hardstool sotalol 80 mg tablet 80 mg PO BID 03/01/24 03/01/24 Unknown History Physical Exam 2 Vital Signs: Vital Signs: Last Vital Signs Temp 96.8 F 03/02/24 08:00 Pulse 136 H 03/02/24 10:03 Resp 16 03/02/24 08:19 BP 112/76 03/02/24 10:03 Pulse Ox 96 03/02/24 08:00 O2 Del Method Room Air 03/02/24 08:00 O2 Flow Rate 95 03/01/24 19:17 BMI result Body Mass Index 26.9 Const: General: cooperative, comfortable, no acute distress, alert, awake and confusion Nutritional Appearance: overweight Orientation/consciousness: c onfusion Limitations: no limitations HEENT: Head: Yes normocephalic and Yes atraumatic Neck: Neck: Yes trachea midline, Yes supple and Yes no JVD Resp: Effort & Inspection: normal respiratory effort Auscultation: clear to auscultation bilaterally and diminished lung sounds Cardio: Jugular venous distension: no JVD Rate: tachycardic Rhythm: a bnormal rhythm irregularly irregular Heart sounds: S1 normal heart sound present, S2 normal heart sound present, no click, no gallops and no murmurs GI: Auscultation: normal bowel sounds Skin: General skin exam: no rashes or lesions noted Neuro: General: no focal motor deficits and confusion Extrem: General: Yes no clubbing, cyanosis or edema Objective Labs and Meds 03/02/24 06:15 03/02/24 06:15 Lab results: Laboratory Results - last 24 hr 03/01/24 03/01/24 03/02/24 16:15 18:46 06:15 WBC 12.0 H 9.9 RBC 5.41 5.06 Hgb 16.7 15.4 Hct 48.6 45.7 MCV 89.8 90.3 MCH 30.9 30.4 MCHC 34.4 33.7 RDW 14.0 13.9 Plt Count 45 L 39 L MPV 12.8 H 13.2 H Immature Gran % (Auto) 0.6 H 0.6 H Neut % (Auto) 74.7 H 73.6 H Lymph % (Auto) 12.6 L 14.1 L [place] % (Auto) 11.0 10.2 Eos % (Auto) 0.9 1.2 Baso % (Auto) 0.2 0.3 Lymph # (Auto) 1.5 1.4 [place] # (Auto) 1.3 H 1.0 Eos # (Auto) 0.1 0.1 Baso # (Auto) 0.0 0.0 Abs Immat Gran (auto) 0.07 H 0.06 H Absolute Neuts (auto) 9.0 H 7.3 Absolute Nucleated RBC 0.000 0.000 Nucleated RBC % (auto) 0.0 0.0 Smear Tech's Comments VERIFIED PT 15.1 H D INR 1.2 H Sodium 146 H 142 Potassium 4.1 4.0 Chloride 110 H 112 H Carbon Dioxide 27 21 L Anion Gap 13 13 BUN 22 H 17 H Creatinine 0.91 0.85 Estim Creat Clear Calc 69.9 74.8 Estimated GFR > 60 > 60 Random Glucose 75 92 Calcium 9.3 8.6 D Magnesium 2.2 Total Bilirubin 0.6 Direct Bilirubin 0.2 AST 18 ALT 23 Alkaline Phosphatase 153 H Troponin I High Sens 7.8 B-Natriuretic Peptide 159 H Total Protein 6.8 Albumin 3.5 Lipase 28 TSH 1.73 Urine Color Yellow Urine Appearance Clear Urine pH 6.0 Ur Specific [place] 1.015 Urine Protein Negative Urine Glucose (UA) Negative Urine Ketones Negative Urine Blood Negative Urine Nitrite Negative Ur Leukocyte Esterase Negative EKG shows atrial flutter with rapid ventricular response with variable conduction Imaging Radiologist's impression: Impressions Chest X-Ray 03/01/24 16:10 IMPRESSION: No acute cardiopulmonary findings. Assessment and Plan (1) Atrial flutter with rapid ventricular response: Status: Acute Atrial flutter with rapid ventricular response, recurrent without any obvious signs of cardiac decompensation or any symptoms. At this point time given his limit did functionality and lack of symptoms will pursue rate control approach. Would discontinue sotalol therapy as it is ineffective in maintaining rhythm and switch to metoprolol 25 mg q.6 hours. Will also add digoxin loading 0.25 mg IV push q.6 hours x3 doses. Eliquis has been hold for thrombocytopenia which at this point time is appropriate till workup is completed and if thrombocytopenia is reversed with platelet counts of above 75,000 will resume his Eliquis therapy. Continue supportive care. Continue treat hypernatremia. Will follow with you. Thank you for allowing me to partake in his care Procedures Date of Service Date of Service: 03/02/24
--- NOTE | 2024-03-02 13:05 | P.PNIM_ITS ---
Subjective Subjective Date of Service: 03/02/24 Interval History: seen and examined this morning Follow-up for atrial fibrillation Patient denies any chest pain, palpitations, shortness of breath, dizziness poor historian due to memory impairment Review of Systems Review of Systems: Yes all other systems are reviewed and are negative Physical Exam 2 Vital Signs: Vital Signs: Last Vital Signs Temp 96.9 F 03/02/24 12:00 Pulse 90 03/02/24 12:00 Resp 18 03/02/24 12:00 BP 104/60 03/02/24 12:00 Pulse Ox 97 03/02/24 12:00 O2 Del Method Room Air 03/02/24 12:00 O2 Flow Rate 95 03/01/24 19:17 BMI result Body Mass Index 26.9 Const: General: cooperative, comfortable, no acute distress, alert and awake Orientation/consciousness: oriented to person and oriented to place (with reminders he knows that he is in the hospital ) Resp: Effort & Inspection: normal respiratory effort, able to speak in complete sentences, no respiratory distress and no use of accessory muscles Cardio: Rate: tachycardic GI: Palpation (GI): Soft to palpation and nontender Neuro: General: oriented to person, oriented to place (with reminders he knows that he is in the hospital ), moves all extremities and CN's II-XI intact bilaterally Extrem: General: Yes no pedal edema Objective Data Active Medications Acetaminophen (Acetaminophen 325 Mg Tablet) 650 mg PO Q6H PRN PRN Reason: Pain, Mild (Pain Scale 1-3), fever or headache Atorvastatin Calcium (Atorvastatin Calcium 10 Mg Tablet) 10 mg PO BEDTIME KRISHNA Bisacodyl (Bisacodyl 10 Mg Supp.Rect) 10 mg [place] DAILY PRN PRN Reason: Constipation Bupropion HCl (Bupropion Hcl Xl 150 Mg Tab.Er.24h) 150 mg PO DAILY [facility] Last Admin: 03/02/24 09:09 Dose: 150 mg Documented By: ADITI Docusate Sodium (Docusate Sodium 100 Mg Capsule) 100 mg PO DAILY PRN PRN Reason: Constipation Donepezil HCl (Donepezil Hcl 10 Mg Tablet) 10 mg PO BEDTIME KRISHNA Doxazosin Mesylate (Doxazosin Mesylate 2 Mg Tablet) 4 mg PO BEDTIME [facility]; Protocol Last Admin: 03/01/24 23:26 Dose: 4 mg Documented By: ALECIA Finasteride (Finasteride 5 Mg Tablet) 5 mg PO DAILY [facility] Last Admin: 03/02/24 09:09 Dose: 5 mg Documented By: ADITI Fluticasone Propionate (Fluticasone Propionate Nasal 16 Gm [place]) 0 spray NOSTRIL-B DAILY [facility] Last Admin: 03/02/24 09:09 Dose: Not Given Documented By: ADITI Non-Admin Reason: patient refused Lorazepam (Lorazepam 0.5 Mg Tablet) 0.5 mg PO BID PRN PRN Reason: Anxiety Memantine (Memantine Hcl 10 Mg Tablet) 10 mg PO BID [facility] Last Admin: 03/02/24 09:09 Dose: 10 mg Documented By: ADITI Multivitamins/Vitamin C (Multivitamin Tablet) 1 tab PO DAILY [facility] Last Admin: 03/02/24 09:09 Dose: 1 tab Documented By: ADITI Omeprazole (Omeprazole 40 Mg Capsule.Dr) 40 mg PO DAILY@0630 [facility] Last Admin: 03/02/24 05:54 Dose: 40 mg Documented By: CORWIN Polyethylene Glycol (Polyethylene Glycol 3350 17 Gm Powd.Pack) 17 gm PO DAILY [facility] Last Admin: 03/02/24 09:11 Dose: Not Given Documented By: ADITI Non-Admin Reason: Patient Refused Quetiapine Fumarate (Quetiapine Fumarate 50 Mg Tablet) 50 mg PO BEDTIME [facility] Senna (Sennosides 8.6 Mg Tablet) 8.6 mg PO DAILY [facility] Last Admin: 03/02/24 09:09 Dose: 8.6 mg Documented By: ADITI Sodium Chloride (0.9 % Sodium Chloride Flush 3 Ml Syringe) 3 ml IVFLUSH QSHIFT [facility] Last Admin: 03/02/24 09:10 Dose: 3 ml Documented By: ADITI Sotalol HCl (Sotalol Hcl 80 Mg Tablet) 80 mg PO BID [facility] Tiotropium [place] (Tiotropium [place] 2.5 Mcg 1 Puff/2.5 Mcg Mist.Inhal) 2 puff INHALE RDAILY [facility] Last Admin: 03/02/24 08:19 Dose: 2 puff Documented By: GUIDIB Labs 03/02/24 06:15 03/02/24 06:15 Labs: Laboratory Results - last 24 hr 03/01/24 03/01/24 03/02/24 16:15 18:46 06:15 MCV 89.8 90.3 MCH 30.9 30.4 MCHC 34.4 33.7 RDW 14.0 13.9 Plt Count 45 L 39 L MPV 12.8 H 13.2 H Immature Gran % (Auto) 0.6 H 0.6 H Neut % (Auto) 74.7 H 73.6 H Lymph % (Auto) 12.6 L 14.1 L [place] % (Auto) 11.0 10.2 Eos % (Auto) 0.9 1.2 Baso % (Auto) 0.2 0.3 Lymph # (Auto) 1.5 1.4 [place] # (Auto) 1.3 H 1.0 Eos # (Auto) 0.1 0.1 Baso # (Auto) 0.0 0.0 Abs Immat Gran (auto) 0.07 H 0.06 H Absolute Neuts (auto) 9.0 H 7.3 Absolute Nucleated RBC 0.000 0.000 Nucleated RBC % (auto) 0.0 0.0 Smear Tech's Comments VERIFIED PT 15.1 H D INR 1.2 H Anion Gap 13 13 Estim Creat Clear Calc 69.9 74.8 Estimated GFR > 60 > 60 Random Glucose 75 92 Calcium 9.3 8.6 D Magnesium 2.2 Total Bilirubin 0.6 Direct Bilirubin 0.2 AST 18 ALT 23 Alkaline Phosphatase 153 H Troponin I High Sens 7.8 B-Natriuretic Peptide 159 H Total Protein 6.8 Albumin 3.5 Lipase 28 TSH 1.73 Urine Color Yellow Urine Appearance Clear Urine pH 6.0 Ur Specific [place] 1.015 Urine Protein Negative Urine Glucose (UA) Negative Urine Ketones Negative Urine Blood Negative Urine Nitrite Negative Ur Leukocyte Esterase Negative Assessment and Plan (1) Atrial flutter with rapid ventricular response: Status: Acute Plan Satya Back is a 73 y/o man admitted with: Atrial flutter with rapid ventricular response Initially was seen by Cardiology and sotalol was discontinued. Started on metoprolol and digoxin however patient converted back to normal sinus rhythm. Discussed with cardiology and resumed back on home dose of sotalol. QTC less than 500 On Eliquis at baseline, platelets less than 75,000 therefore was placed on hold unclear cause of thrombocytopenia Hematology consult pending, hold eliquis for now TSH wnl No evidence of underlying infection Hypernatremia Resolved with IV fluid Thrombocytopenia Has seen Hematology in the past but no clear documented cause of thrombocytopenia follow CBC eliquis on hold to prevent spontaneous bleeding Acute encephalopathy likely secondary to hypernatremia due to likely poor p.o. intake of water. Resolved. Has baseline dementia, likely at baseline COPD. No acute exacerbation. Continue home inhalers. Dementia/mood Continue home medications. Hyperlipidemia. Continue statin. BPH. Continue home medications. Code status: Full DVT prophylaxis: SCDs. eliquis on hold as above Patient requires ongoing inpatient stay for management of rapid atrial flutter treatment with antiarrhythmic agents and continuous cardiac monitoring. Patient will also need hydration and monitoring of sodium level. Quality Stroke Does the patient have a stroke diagnosis?: No VTE Prior VTE?: No VTE Risk Level:: Medical - moderate - high VTE Device Contraindication: Treatment Not Indicated VTE Drug Contraindication: N/A - Med Ordered
[2024-03-02 13:06] LABS: Lactate Dehydrogenase 167 U/L (118-273)
[2024-03-02 13:08] LABS: Immature Retic Fraction 6.2 % (2.3-13.4); Retic HGB Equivalent 34.3 pg (30.0-35.0); Reticulocyte Percent 1.4 % (0.5-1.8); Reticulocytes Absolute 0.071 X10*6/uL (0.026-0.095)
[2024-03-02 13:48] LABS: Erythrocyte Sedimentation Rate 11 MM/HR (0-15)
[2024-03-02 14:53] LABS: Rheumatoid Factor 77.6 IU/mL (<15.0)
--- NOTE | 2024-03-02 16:12 | P.CNHO_ITS ---
Subjective - Subjective Chief complaint: Consult for: Thrombocytopenia. Patient: new to practice Consult date: 03/02/24 Requesting Physician: Chato Primary Care Provider: Breezy Sorenson MD Family Provider: Breezy sorenson. Medical Summary: DIAGNOSIS: THROMBOCYTOPENIA. HPI - Consult Narrative Reason for consult: Consult for: Thrombocytopenia. Narrative: Satya Back is a 73 year old gentleman, who was brought to the emergency department from [facility] due to increased lethargy and elevated heart rate. His stated that Satya has been having fatigue and lethargy for 1 week. He has dementia and is unaware why he has in the hospital. He knows that he is in the hospital but does not know the year. He denied any chest pain, shortness on breath or palpitations. He also denies headache, dizziness, abdominal pain, nausea, vomiting or diarrhea. Here, he was found to have rapid atrial fibrillation, the rest of the vital signs were normal. Blood workup is remarkable for mild leukocytosis of 12.0. Hemoglobin was normal, platelets were 45. Sodium is elevated 146 and hyperchloremia. There are no other significant electrolyte imbalances. Renal function is adequate and LFTs are normal. BNP is 159 and troponin 7.8. UA is negative for infection. CXR is negative for acute changes. ECG: showed atrial flutter with variable AV block, right axis deviation and nonspecific ST changes. ED tx: Diltiazem 20 mg IV x2, NS 1 L bolus Review of Systems 2 Review of Systems: All 12 systems were reviewed and normal except as noted in HPI. [facility] Medical History: atrial flutter on warfarin, COPD-no home oxygen, Ddementia on memantine and donepezil and hyperlipidemia Cognitive dysfunction External hemorrhoids with complication Mild cognitive impairment with memory loss Depression Essential hypertension COPD (chronic obstructive pulmonary disease) Paroxysmal atrial fibrillation HLD (hyperlipidemia) Persistent atrial fibrillation Surgical History: Hx of cystoscopy Hx of colonoscopy History of prostate biopsy History of cardiac radiofrequency ablation. Family History: Father CVD (cardiovascular disease) Mother Cancer Afib Social History: Are you a primary career based intervention coordinator to a significant other at home: No Alcohol intake: current Alcohol intake frequency: does not drink Alcohol type: other Patient Tobacco Use Status: Former Tobacco user Tobacco use type: Cigarette Cigarette Packs Per Day: 1 Smoked in Last 30 Days: No Review of Systems - Constitutional Reports system reviewed and no additional complaints, except as documented, Reports fatigue, Reports lack of energy, Reports malaise, Reports weight loss, Denies fever(s), Denies night sweats, Denies poor appetite - Eyes Reports system reviewed and no additional complaints, except as documented - ENT Reports system reviewed and no additional complaints, except as documented - Cardiovascular Reports system reviewed and no additional complaints, except as documented - Respiratory Reports no additional respiratory complaints - Gastrointestinal Reports system reviewed and no additional complaints, except as documented - Genitourinary Genitourinary: Reports no additional male genitourinary complaints - Musculoskeletal Reports system reviewed and no additional complaints, except as documented - Integumentary/Breasts Skin/Breast: Reports no additional skin complaints - Neurologic Reports confusion - Psychiatric Reports system reviewed and no additional complaints, except as documented - Endocrine Reports no additional endocrine complaints - Hematologic/Lymphatic Reports system reviewed and no additional complaints, except as documented - Allergic/Immunologic Reports system reviewed and no additional complaints, except as documented Oncology Screenings - ECOG Performance Status ECOG Performance Status: 2 [facility] Medical History: Medical History (Last Reviewed 03/02/24 @ 02:33 by Jaspal Zhong RN) Cognitive dysfunction COPD (chronic obstructive pulmonary disease) Depression Essential hypertension External hemorrhoids with complication HLD (hyperlipidemia) Mild cognitive impairment with memory loss Paroxysmal atrial fibrillation Persistent atrial fibrillation Functional capacity: wheelchair bound Patient : No Family History: Family History (Last Reviewed 01/13/24 @ 21:04 by Alton Richardson MD) Father CVD (cardiovascular disease) Mother Cancer Afib Surgical History: Surgical History (Last Reviewed 03/02/24 @ 02:33 by Jaspal Zhong RN) History of cardiac radiofrequency ablation History of prostate biopsy Hx of colonoscopy Hx of cystoscopy Social History: Social History (Last Reviewed 01/13/24 @ 21:04 by Alton Richardson MD) Living Situation History: Are you a primary career based intervention coordinator to a significant other at home: No Tobacco History: Patient Tobacco Use Status: Former Tobacco user Tobacco use type: Cigarette Cigarette Packs Per Day: 1 e-Cigarette/Vaping Use: Never Used Second Hand Smoke Exposure: No Occupation Assessmet: service: Yes Home Medications and Allergies Current Medications: Current Medications Acetaminophen (Acetaminophen 325 Mg Tablet) 650 mg PO Q6H PRN PRN Reason: Pain, Mild (Pain Scale 1-3), fever or headache Atorvastatin Calcium (Atorvastatin Calcium 10 Mg Tablet) 10 mg PO BEDTIME [facility] Bisacodyl (Bisacodyl 10 Mg Supp.Rect) 10 mg [place] DAILY PRN PRN Reason: Constipation Bupropion HCl (Bupropion Hcl Xl 150 Mg Tab.Er.24h) 150 mg PO DAILY [facility] Last Admin: 03/02/24 09:09 Dose: 150 mg Docusate Sodium (Docusate Sodium 100 Mg Capsule) 100 mg PO DAILY PRN PRN Reason: Constipation Donepezil HCl (Donepezil Hcl 10 Mg Tablet) 10 mg PO BEDTIME [facility] Doxazosin Mesylate (Doxazosin Mesylate 2 Mg Tablet) 4 mg PO BEDTIME [facility]; Protocol Last Admin: 03/01/24 23:26 Dose: 4 mg Finasteride (Finasteride 5 Mg Tablet) 5 mg PO DAILY [facility] Last Admin: 03/02/24 09:09 Dose: 5 mg Fluticasone Propionate (Fluticasone Propionate Nasal 16 Gm [place]) 0 spray NOSTRIL-B DAILY [facility] Last Admin: 03/02/24 09:09 Dose: Not Given Lorazepam (Lorazepam 0.5 Mg Tablet) 0.5 mg PO BID PRN PRN Reason: Anxiety Memantine (Memantine Hcl 10 Mg Tablet) 10 mg PO BID [facility] Last Admin: 03/02/24 09:09 Dose: 10 mg Multivitamins/Vitamin C (Multivitamin Tablet) 1 tab PO DAILY [facility] Last Admin: 03/02/24 09:09 Dose: 1 tab Omeprazole (Omeprazole 40 Mg Capsule.Dr) 40 mg PO DAILY@0630 [facility] Last Admin: 03/02/24 05:54 Dose: 40 mg Polyethylene Glycol (Polyethylene Glycol 3350 17 Gm Powd.Pack) 17 gm PO DAILY [facility] Last Admin: 03/02/24 09:11 Dose: Not Given Quetiapine Fumarate (Quetiapine Fumarate 50 Mg Tablet) 50 mg PO BEDTIME [facility] Senna (Sennosides 8.6 Mg Tablet) 8.6 mg PO DAILY [facility] Last Admin: 03/02/24 09:09 Dose: 8.6 mg Sodium Chloride (0.9 % Sodium Chloride Flush 3 Ml Syringe) 3 ml IVFLUSH QSHIFT [facility] Last Admin: 03/02/24 09:10 Dose: 3 ml Sotalol HCl (Sotalol Hcl 80 Mg Tablet) 80 mg PO BID [facility] Tiotropium [place] (Tiotropium [place] 2.5 Mcg 1 Puff/2.5 Mcg Mist.Inhal) 2 puff INHALE [place] [facility] Last Admin: 03/02/24 08:19 Dose: 2 puff Home Medications ?Medication ?Instructions ?Recorded ?Confirmed ?Type lorazepam 0.5 mg tablet 0.5 mg PO BID PRN Anxiety 10/05/20 03/01/24 History multivitamin 1 tab PO DAILY 03/19/21 03/01/24 History bupropion HCl 150 mg 24 hr tablet, 150 mg PO DAILY 04/26/21 03/01/24 History extended release donepezil 10 mg tablet 10 mg PO DAILY 04/26/21 03/01/24 History memantine 10 mg tablet 10 mg PO BID 04/26/21 03/01/24 History tiotropium bromide 18 mcg capsule 1 cap inhalation DAILY 08/14/21 03/01/24 History with inhalation device (Spiriva with HandiHaler) quetiapine 50 mg tablet 50 mg PO DAILY 11/02/23 03/01/24 History acetaminophen 325 mg tablet 650 mg PO Q4H PRN Pain or Fever 03/01/24 03/01/24 History albuterol sulfate 90 mcg/actuation 2 puff inhalation Q4H PRN 03/01/24 03/01/24 History aerosol inhaler shortness of breath or wheezing apixaban 5 mg tablet (Eliquis) 5 mg PO Q12H 03/01/24 03/01/24 History bisacodyl 10 mg rectal suppository 10 mg [place] DAILY PRN Constipation 03/01/24 03/01/24 History docusate sodium 100 mg capsule 100 mg PO DAILY PRN Constipation 03/01/24 03/01/24 History magnesium hydroxide 400 mg/5 mL 30 ml PO DAILY PRN No BM in 3 days 03/01/24 03/01/24 History oral suspension or 9 shifts and hardstool polyethylene glycol 3350 17 gram 17 g PO DAILY 03/01/24 03/01/24 History oral powder packet sennosides 8.6 mg tablet (senna) 8.6 mg PO DAILY 03/01/24 03/01/24 History sodium phosphates 19 gram-7 118 ml [place] DAILY PRN No BM in 3 06/25/24 06/25/24 History gram/118 mL enema (Fleet Enema) days or 9 shifts and hardstool sotalol 80 mg tablet 80 mg PO BID 03/01/24 03/01/24 History Allergies Allergy/AdvReac Type Severity Reaction Status Date / Time dexamethasone [From Decadron] Allergy Intermediate ITCHING/DELMY Verified 03/01/24 15:15 H paroxetine [From PAXIL] Allergy Unknown UNKNOWN Verified 03/01/24 15:15 venlafaxine [From EFFEXOR] Allergy Unknown UNKNOWN Verified 03/01/24 15:15 decadron Allergy Unknown rash Uncoded 12/28/23 11:15 Physical Exam Vital signs: Vital Signs Temp 97.2 F 03/02/24 15:07 Pulse 88 03/02/24 15:07 Resp 18 03/02/24 15:07 BP 142/79 H 03/02/24 15:07 Pulse Ox 97 03/02/24 15:07 O2 Del Method Room Air 03/02/24 15:07 O2 Flow Rate 95 03/01/24 19:17 Intake & Output 03/01/24 03/02/24 03/02/24 18:59 06:59 18:59 Intake Total 1000 / 1000 946.667 / 946.667 Output Total 1200 / 1200 200 / 200 Balance -200 / -200 746.667 / 746.667 Urine Output (Average ml/kg/hr) 1.24 0.21 Intake: Intake, IV Amount 1000 / 1000 946.667 / 946.667 0.9 % Sodium Chloride 1,000 ml 1000 / 1000 @ 999 mls/hr IV .Q1H1M [facility] Rx#: [id number] Dextrose 5 % and 0.9 % NaCl 1, 946.667 / 946.667 000 ml @ 80 mls/hr IVCONT . [id number] [facility] Rx#:[id number] Output: Output, Urine Amount 1200 / 1200 200 / 200 Other: Number of Unmeasured Voids 4 Number of Bowel Movements 1 Urine Urinal Bathroom Urine Color Straw Stool Bathroom Weight 82 kg 80.4 kg Weight in Grams 72489 Weight 80.4 kg - Constitutional Present: mild distress - Routine HEENT Exam Head: Present: normal inspection, normocephalic Eye: Present: normal appearance ENT: Present: mucous membranes moist - Routine Neck Exam Present: supple - Routine Respiratory Exam Present: decreased breath sounds - Routine Cardiovascular Exam Cardiovascular: Present: RRR, S1, S2, irregular rhythm - Routine Abdominal Exam Present: nontender. Absent: organomegaly - Routine Extremities Exam Present: nontender - Routine Skin Exam Present: intact, normal turgor - Routine Neurological Exam Present: alert, altered mental status, vision grossly intact Hem/Onc Consult Result - Labs CBC & Chem 7: 03/03/24 07:36 03/03/24 07:37 Labs: Short CBC 03/01/24 03/02/24 Range/Units 16:15 06:15 WBC 12.0 H 9.9 (4.8-10.8) X10*3/uL Hgb 16.7 15.4 (14.0-18.0) g/dl Hct 48.6 45.7 (42.0-52.0) % Plt Count 45 L 39 L (160-400) X10*3/uL BMP 03/01/24 03/02/24 16:15 06:15 Sodium 146 H 142 Potassium 4.1 4.0 Chloride 110 H 112 H Carbon Dioxide 27 21 L BUN 22 H 17 H Creatinine 0.91 0.85 Calcium 9.3 8.6 D Liver Function 03/01/24 Range/Units 16:15 Total Bilirubin 0.6 (0.0-1.0) mg/dL Direct Bilirubin 0.2 (0.0-0.5) mg/dL AST 18 (5-37) U/L ALT 23 (0-40) U/L Alkaline Phosphatase 153 H (39-117) U/L Albumin 3.5 (3.5-5.0) g/dL Urine 03/01/24 Range/Units 18:46 Urine Color Yellow Urine Appearance Clear Urine pH 6.0 (5.0-9.0) Ur Specific [place] 1.015 (1.005-1.025) Urine Protein Negative (Neg-Trace) mg/dL Urine Glucose (UA) Negative (Negative) mg/dL Assessment and Plan Patient Active problem list reviewed?: Yes (1) Thrombocytopenia Status: Acute Assessment and plan: This is a pleasant 73-year-old gentleman, with history of dementia on [place], who [facility] with mental status changes. He was noted to be in atrial flutter, of unclear duration. This is being managed with rate control therapy with metoprolol and digoxin. Sotalol has been discontinued. Review of his labs in the computer revealed the following platelet trend: 07/02/2023. PLT 179. 3/24. PLT: 53. 6/25. PLT 45. DIFFERENTIAL DIAGNOSIS: 1. MEDICATION RELATED: He is on Memantine, Quetiapine, Sotalol, Donepazil, and Doxazocine, that could be implicated. 2. INFECTION RELATED: A chronic infection like HIV or hepatitis B or C. 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 4. COLLAGEN VASCULAR DISORDER: SLE or rheumatoid arthritis. 5. UNDERLYING MYELO INFILTRATIVE DISORDER: Multiple myeloma, MDS versus lymphoma. PLAN: Will proceed with further evaluation. Check for infection: HIV hepatitis-B and C: Negative. Check collagen vascular profile: ESR 11, RA: 77.6, GUILLERMO : negative. Check retic count 1.4, and LDH:167. Check an SIEP: WNL. Will give a trial of steroid therapy, for ITP. Will follow the platelet count carefully. Will hold off on anticoagulation, till platelets are above 50,000. Thank you for the consult, I will follow along with you, CC: Savannah Reis. - Time Spent With Patient Time Spent with Patient (in minutes): 30
[2024-03-02] MEDS: predniSONE 20 MG TABLET 60 MG PO (16:52)
[2024-03-02] MEDS: LORazepam 0.5 MG TABLET PO (16:53)
[2024-03-02] MEDS: Doxazosin Mesylate 2 MG TABLET 4 MG PO (22:21)
[2024-03-02] MEDS: Donepezil HCl 10 MG TABLET PO (22:22)
[2024-03-02] MEDS: Atorvastatin Calcium 10 MG TABLET PO (22:22)
[2024-03-02] MEDS: QUEtiapine Fumarate 50 MG TABLET PO (22:28)
--- NOTE | 2024-03-03 | ECG_ITS ---
Test Reason : afib, sotolol prot Blood Pressure : / mmHG Vent. Rate : 086 BPM Atrial Rate : 086 BPM P-R Int : 178 ms QRS Dur : 076 ms QT Int : 410 ms P-R-T Axes : 062 073 070 degrees QTc Int : 490 ms Normal sinus rhythm Prolonged QT Abnormal ECG When compared with ECG of 02-MAR-2024 12:00, No significant change was found Referred By: Savannah Reis Electronically Signed By:THERESA ROCHA MD
[2024-03-03 04:00] VITALS: BP 132/78; PULSE 103; RESP 18; TEMP 37.2; O2SAT 92
[2024-03-03] MEDS: Omeprazole 40 MG CAPSULE.DR PO (06:11)
[2024-03-03] MEDS: Tiotropium Bromide 2.5 mcg 1 PUFF/2.5 MCG MIST.INHAL 2 PUFF INHALE (07:53)
[2024-03-03 07:55] VITALS: PULSE 94; RESP 18; O2SAT 97
[2024-03-03 08:00] VITALS: BP 140/83; PULSE 92; RESP 20; TEMP 36.3; O2SAT 97
[2024-03-03 08:18] LABS: Hematocrit 44.6 % (42.0-52.0); Hemoglobin 15.3 g/dl (14.0-18.0); Mean Corpuscular HGB Conc 34.3 g/dl (31.0-36.0); Mean Corpuscular Hemoglobin 30.6 pg (27.0-33.0); Mean Corpuscular Volume 89.2 fL (80.0-98.0); Mean Platelet Volume 14.1 fL (9.4-12.4); Red Cell Distribution Width 13.5 % (11.0-16.0); White Blood Count 12.4 X10*3/uL (4.8-10.8)
[2024-03-03 08:23] LABS: Platelet Count 45 X10*3/uL (160-400)
[2024-03-03 08:35] LABS: Anion Gap 10 (12-20); Blood Urea Nitrogen 14 mg/dL (9-16); Carbon Dioxide 25 mmol/L (22-29); Chloride 109 mmol/L (96-108); Creatinine Clr Calc Pharmacy 78.5; Estimated Glomerular Filt Rate > 60; Glucose Random 101 mg/dL (60-115); Potassium 3.8 mmol/L (3.3-5.1); Sodium 140 mmol/L (135-145)
[2024-03-03] MEDS: Memantine HCl 10 MG TABLET PO (08:50)
[2024-03-03] MEDS: Multivitamin TABLET 1 TAB PO (08:50)
[2024-03-03] MEDS: Sennosides 8.6 MG TABLET PO (08:50)
[2024-03-03] MEDS: Finasteride 5 MG TABLET PO (08:50)
[2024-03-03] MEDS: buPROPion HCl XL 150 MG TAB.ER.24H PO (08:50)
[2024-03-03] MEDS: predniSONE 20 MG TABLET 60 MG PO (08:50)
[2024-03-03] MEDS: Sotalol HCL 80 MG TABLET PO (08:51)
[2024-03-03] MEDS: polyethylene glycoL 3350 17 GM POWD.PACK PO (08:51)
[2024-03-03] MEDS: 0.9 % Sodium Chloride Flush 3 ML SYRINGE IVFLUSH (08:51)
--- NOTE | 2024-03-03 08:55 | P.CDIM_ITS ---
PROVIDER RESPONSE TEXT: To clarify, the appropriate diagnosis supported by the clinical indicators: Metabolic QUERY TEXT: PHYSICIAN'S DOCUMENTATION REQUEST Date of Query: 03/03/2024 07:41 AM EDT Patient Name: Satya Back Admit Date: 03/02/2024 Dear Savannah Reis, A review of the medical record indicates additional documentation may be needed. Please review below and update the documentation accordingly. Clinical Indicators: Progress notes under the Plan: Acute encephalopathy likely secondary to hypernatremia due to likely poor p.o. intake of water. Resolved. Based on the above, please further specify, in the Progress Notes, the known or suspected type of the documented encephalopathy: Metabolic Toxic Toxic metabolic Other (explain) Clinically unable to determine (explain) Thank you, Mable Rivers, CCS, CDIS Use of terms such as suspected, likely, concern for, or probable (associated with a specific diagnosi s that is being evaluated, monitored, or treated as if it exists) are acceptable and can be coded in the inpatient se tting, when documented at the time of discharge. Please use your independent medical judgment in providing your response. THIS QUERY IS PART OF THE PERMANENT MEDICAL RECORD
[2024-03-03 10:10] LABS: HBS Num1 118.92 mIU/mL (0-7.99); HBc Num1 0.14 S/CO (0.00-0.79); HBsAGNum1 0.63 S/CO (0.00-0.99); HIV AB/AG Nonreactive (Nonreactive); Hepatitis B Core Antibody Nonreactive (Nonreactive); Hepatitis B Surface Antigen Negative (Negative); ~HepC Num1 0.11 S/CO (0.00-0.79); ~Hepatitis B Surface Antibody REACTIVE (Nonreactive); ~Hepatitis C Antibody Nonreactive (Nonreactive)
--- NOTE | 2024-03-03 10:18 | P.DS_ITS ---
DS: Providers Provider Date of Service: 03/03/24 Date of admission: 03/01/24 20:53 Date of discharge: 03/03/24 Primary care physician: Breezy Arreola MD Consults: 03/02/24 07:57 Consult to Cardiology Routine Consulting Provider: [facility] Reason for consultation: afib rvr, on coumadin/thrombocytopenia Has provider been notified: No 03/02/24 11:52 Consult to Hematology / Oncology Routine Consulting Provider: [facility] Oncology/Hematology Reason for consultation: Thrombocytopenia, on Eliquis at baseline Has provider been notified: No 03/02/24 15:57 Consult for Sitter Routine Reason for consultation: dementia, restless Has provider been notified: No Attending physician on discharge: Boy Vogel Discharging clinician: Savannah Reis DS: Diagnosis Discharge Diagnosis (1) Thrombocytopenia: Status: Acute DS: Summary Hospital Course Hospital Course: From H&P on the day of admission Satya Back is a 73 years old man with past medical history significant for atrial flutter on warfarin, COPD-no home oxygen, dementia on memantine and donepezil and hyperlipidemia was brought to the emergency department from [facility] due to increased lethargy and elevated heart rate. According to ED provider, patient's stated that the patient has been having fatigue and lethargy for 1 week. The patient has dementia and is unaware why he has in the hospital. However he was able to answer many of my questions appropriately. He knows that he has in the hospital but does not know the year. He denied any chest pain, shortness on breath or palpitations. He also denies headache, dizziness, abdominal pain, nausea, vomiting or diarrhea. In the ED, he was found to have rapid atrial fibrillation, the rest of the vital signs are normal. Blood workup is remarkable for mild leukocytosis of 12.0. Hemoglobin and platelets are normal. Sodium is elevated 146 and hyperchloremia. There are no other significant electrolyte imbalances. Renal function is adequate and LFTs are normal. BNP is 159 and troponin 7.8. UA is negative for infection. CXR is negative for acute changes. ECG stat showed atrial flutter with variable AV block, right axis deviation and nonspecific ST changes. ED tx: Diltiazem 20 mg IV x2, NS 1 L bolus Atrial flutter with rapid ventricular response Initially was seen by Cardiology and sotalol was discontinued. Started on metoprolol and digoxin however patient converted back to normal sinus rhythm and subsequently resumed back on home dose of sotalol. QTC less than 500. On Eliquis at baseline, platelets less than 75,000 therefore was placed on hold Hypernatremia Resolved with IV fluid Thrombocytopenia Has seen Hematology in the past but no clear documented cause of thrombocytopenia. eliquis placed on hold to prevent spontaneous bleeding. seen in consultation by Hematology and work up initiated, likely ITP. hepatitis pro file negative; collagen vascular profile, SIEP pending at the time of discharge. Will need outpatient follow-up. Recommend to hold Eliquis until platelets greater than 50,000. Hematology recommends steroid trial for possible ITP. Time Attestation Discharge Coordination Time (in mins): 36 Quality: Safe Use of Opioids Does Pt have an Active Cancer Diagnosis on the Problem List?: No Quality: Stroke Does the patient have a stroke diagnosis?: No Physical Exam Vital Signs: Vital Signs: Last Vital Signs Temp 97.3 F 03/03/24 08:00 Pulse 92 03/03/24 08:00 Resp 20 03/03/24 08:00 BP 140/83 H 03/03/24 08:00 Pulse Ox 97 03/03/24 08:00 O2 Del Method Room Air 03/03/24 08:00 O2 Flow Rate 95 03/01/24 19:17 BMI result Body Mass Index 26.9 Const: General: cooperative, comfortable, no acute distress, alert and awake Orientation/consciousness: oriented to person and oriented to place (with reminders he knows that he is in the hospital ) Resp: Effort & Inspection: normal respiratory effort, able to speak in complete sentences, no respiratory distress and no use of accessory muscles Cardio: Rate: tachycardic GI: Palpation (GI): Soft to palpation and nontender Neuro: General: oriented to person, oriented to place (with reminders he knows that he is in the hospital ), moves all extremities and CN's II-XI intact bilaterally Extrem: General: Yes no pedal edema DS: Data Data Completed and Pending Labs on day of discharge: Laboratory Results - last 24 hr 03/02/24 03/02/24 03/02/24 06:15 14:24 14:25 WBC RBC Hgb Hct MCV MCH MCHC RDW Plt Count MPV Absolute Nucleated RBC Nucleated RBC % (auto) ESR 11 Absolute Retic 0.071 Percent Retic 1.4 Immature Retic Fraction 6.2 Retic Hgb Equivalent 34.3 Sodium Potassium Chloride Carbon Dioxide Anion Gap BUN Creatinine Estim Creat Clear Calc Estimated GFR Random Glucose Calcium Lactate Dehydrogenase 167 Rheumatoid Factor 77.6 H Hep Bs Antigen Negative Hep Bs Antibody REACTIVE Hep B Core Total Ab Nonreactive Hepatitis C Ab (EIA) Nonreactive HIV 1&2 Ab/P24 Ag 4thGn Nonreactive Blood Type AB Positive Antibody Screen NEGATIVE 03/03/24 03/03/24 07:36 07:37 WBC 12.4 H RBC 5.00 Hgb 15.3 Hct 44.6 MCV 89.2 MCH 30.6 MCHC 34.3 RDW 13.5 Plt Count 45 L MPV 14.1 H Absolute Nucleated RBC 0.000 Nucleated RBC % (auto) 0.0 ESR Absolute Retic Percent Retic Immature Retic Fraction Retic Hgb Equivalent Sodium 140 Potassium 3.8 Chloride 109 H Carbon Dioxide 25 Anion Gap 10 L BUN 14 Creatinine 0.81 Estim Creat Clear Calc 78.5 Estimated GFR > 60 Random Glucose 101 Calcium 9.0 Lactate Dehydrogenase Rheumatoid Factor Hep Bs Antigen Hep Bs Antibody Hep B Core Total Ab Hepatitis C Ab (EIA) HIV 1&2 Ab/P24 Ag 4thGn Blood Type Antibody Screen Discharge Plan Discharge Anticipated Discharge Date/Time: 03/03/24 10:25 Patient Disposition: Xfer LTC Discharge Diagnosis: Atrial fibrillation with rapid ventricular response Hypernatremia. Resolved Thrombocytopenia Referrals: Breezy Arreola MD [Primary Care Provider] - 1 Week Gilberto Guzman MD [Physician] - 1 Week Discharge Medications: New prednisone 10 mg tablet See Taper PO DIRECTED Qty: 100 0RF Taper: Prednisone 60 mg daily for 5 Days and 0 Hour 50 mg daily for 7 Days and 0 Hour 40 mg daily for 7 Days and 0 Hour 30 mg daily for 7 Days and 0 Hour 20 mg daily for 7 Days and 0 Hour 10 mg daily for 7 Days and 0 Hour Rx Instructions: see taper instructions omeprazole 40 mg Capsule,Delayed Release(Dr/Ec) 40 mg PO DAILY@0630 30 Days Qty: 30 0RF Continued atorvastatin 10 mg tablet 10 mg PO BEDTIME Qty: 90 3RF doxazosin 4 mg tablet 4 mg PO BEDTIME 90 Days Qty: 90 1RF finasteride 5 mg tablet 5 mg PO DAILY 90 Days Qty: 90 1RF multivitamin Tablet 1 tab PO DAILY fluticasone propionate [Flonase Allergy Relief] 50 mcg/actuation spray,suspension 2 spray intranasal DAILY Qty: 16 0RF Rx Instructions: administer into each nostril tiotropium bromide [Spiriva with HandiHaler] 18 mcg capsule, w/inhalation device 1 cap inhalation DAILY sotalol 80 mg tablet 80 mg PO BID polyethylene glycol 3350 17 gram Powder In Packet 17 g PO DAILY sennosides [senna] 8.6 mg Tablet 8.6 mg PO DAILY acetaminophen 325 mg Tablet 650 mg PO Q4H PRN (Reason: Pain or Fever) magnesium hydroxide 400 mg/5 mL Suspension 30 ml PO DAILY PRN (Reason: No BM in 3 days or 9 shifts and hardstool) bisacodyl 10 mg Suppository 10 mg IN DAILY PRN (Reason: Constipation) Fleet Enema 19-7 gram/118 mL Enema 118 ml IN DAILY PRN (Reason: No BM in 3 days or 9 shifts and hardstool) albuterol sulfate 90 mcg/actuation HFA aerosol inhaler 2 puff inhalation Q4H PRN (Reason: shortness of breath or wheezing) docusate sodium 100 mg Capsule 100 mg PO DAILY PRN (Reason: Constipation) lorazepam 0.5 mg tablet 0.5 mg PO BID PRN (Reason: Anxiety) memantine 10 mg tablet 10 mg PO BID bupropion HCl 150 mg tablet extended release 24 hr 150 mg PO DAILY donepezil 10 mg tablet 10 mg PO DAILY quetiapine 50 mg tablet 50 mg PO DAILY Held Eliquis 5 mg Tablet 5 mg PO Q12H Hold Instructions: hold for platelets under 50,000 Discharge Orders: Discharge Order (Routine); Ordered 03/03/24 Ordered By: Savannha Reis Activity on Discharge: As tolerated Stand Alone Forms: Patient Portal Discharge page Print Language: Andorran Care Plan Goals: See below Health Concerns: Atrial fibrillation with rapid ventricular response hypernatremia. Resolved Thrombocytopenia Plan of Treatment: For atrial fibrillation, converted back into normal sinus rhythm. Continue previous dose of sotalol. Eliquis has been discontinued due to platelet level less than 50,000, can resume if platelets increase for thrombocytopenia - ?due to ITP. recommend trial of prednisone taper, 5 more days of 60 mg and then taper by 10 mg every week. Further hematological studies are pending at the time of discharge. Recommend outpatient follow-up with Hematology. Recommend close monitoring of platelets. omeprazole for GI prophylaxis while on steroids Assessment: See discharge summary
--- NOTE | 2024-03-03 10:45 | P.PNCA_ITS ---
Subjective Subjective Date of Service: 03/03/24 Principal diagnosis: Paroxysmal atrial fibrillation Interval history: Converted to sinus rhythm yesterday. No change in his symptoms. Remains confused. Landon is on hold for thrombocytopenia. Resumed on sotalol yesterday. QTC this morning less than 500 milliseconds Review of Systems Review of Systems Yes Unobtainable due to mental status Reports confusion Psychiatric: Reports confusion Physical Exam Vital Signs: Last Vital Signs Temp 97.3 F 03/03/24 08:00 Pulse 92 03/03/24 08:00 Resp 20 03/03/24 08:00 BP 140/83 H 03/03/24 08:00 Pulse Ox 97 03/03/24 08:00 O2 Del Method Room Air 03/03/24 08:00 O2 Flow Rate 95 03/01/24 19:17 BMI result Body Mass Index 26.9 Const General: cooperative, comfortable, no acute distress, alert, awake and confusion Nutritional Appearance: overweight Orientation/consciousness: confusion Limitations: no limitations HEENT Head: Yes normocephalic and Yes atraumatic Neck Neck: Yes trachea midline, Yes supple and Yes no JVD Resp Effort & Inspection: normal respiratory effort Auscultation: clear to auscultation bilaterally and diminished lung sounds Cardio Jugular venous distension: no JVD Rate: regular rate Rhythm: regular rhythm Heart sounds: S1 normal heart sound present, S2 normal heart sound present, no click, no gallops and no murmurs GI Auscultation: normal bowel sounds Skin General skin exam: no rashes or lesions noted Neuro General: no focal motor deficits and confusion Extrem General: Yes no clubbing, cyanosis or edema Objective Labs and Meds 03/03/24 07:36 03/03/24 07:37 Lab results: Laboratory Results - last 24 hr 03/02/24 03/02/24 03/02/24 06:15 14:24 14:25 WBC RBC Hgb Hct MCV MCH MCHC RDW Plt Count MPV Absolute Nucleated RBC Nucleated RBC % (auto) ESR 11 Absolute Retic 0.071 Percent Retic 1.4 Immature Retic Fraction 6.2 Retic Hgb Equivalent 34.3 Sodium Potassium Chloride Carbon Dioxide Anion Gap BUN Creatinine Estim Creat Clear Calc Estimated GFR Random Glucose Calcium Lactate Dehydrogenase 167 Rheumatoid Factor 77.6 H Hep Bs Antigen Negative Hep Bs Antibody REACTIVE Hep B Core Total Ab Nonreactive Hepatitis C Ab (EIA) Nonreactive HIV 1&2 Ab/P24 Ag 4thGn Nonreactive Blood Type AB Positive Antibody Screen NEGATIVE 03/03/24 03/03/24 07:36 07:37 WBC 12.4 H RBC 5.00 Hgb 15.3 Hct 44.6 MCV 89.2 MCH 30.6 MCHC 34.3 RDW 13.5 Plt Count 45 L MPV 14.1 H Absolute Nucleated RBC 0.000 Nucleated RBC % (auto) 0.0 ESR Absolute Retic Percent Retic Immature Retic Fraction Retic Hgb Equivalent Sodium 140 Potassium 3.8 Chloride 109 H Carbon Dioxide 25 Anion Gap 10 L BUN 14 Creatinine 0.81 Estim Creat Clear Calc 78.5 Estimated GFR > 60 Random Glucose 101 Calcium 9.0 Lactate Dehydrogenase Rheumatoid Factor Hep Bs Antigen Hep Bs Antibody Hep B Core Total Ab Hepatitis C Ab (EIA) HIV 1&2 Ab/P24 Ag 4thGn Blood Type Antibody Screen Progress Note: A&P Assessment and plan (1) Paroxysmal atrial fibrillation: Status: Acute Assessment and Plan: Patient present with altered mental status of unclear etiology. Was hyponatremic and had atrial flutter with rapid ventricular response. However he had no hemodynamic compromise. Converted back to sinus rhythm spontaneously. Would take the advantage of pursuing rhythm control approach. Continue with sotalol therapy which has worked for him for years. Will require EKGs every 3 months which can be done at the care home facility. Currently oral anticoagulation has been hold due to thrombocytopenia. This needs to be worked up. Continue supportive care. Avoidance of stimulants was discussed. Patient can be discharged home. Will sign of the case Time Spent With Patient Time: Total time managing care of this patient today ____ minutes. Progress Note: Quality Stroke Does the patient have a stroke diagnosis?: No Procedures Date of Service Date of Service: 03/03/24
--- NOTE | 2024-03-03 10:48 | P.CDIM_ITS ---
PROVIDER RESPONSE TEXT: To clarify, the appropriate diagnosis supported by the clinical indicators: Dementia: probable alzheimers QUERY TEXT: PHYSICIAN'S DOCUMENTATION REQUEST Date of Query: 03/03/2024 07:43 AM EDT Patient Name: Satya Back Admit Date: 03/02/2024 Dear Savannah Reis, A review of the medical record indicates additional documentation may be needed. Please review below and update the documentation accordingly. Clinical Indicators: Altered mental status, mild cognitive dysfunction with memory loss, impairment, History of Dementia Memantine, Donepezil If possible, please further clarify type of Dementia if known: Dementia Vascular, Alzheimer's, Presenile, Senile, Lewy body, Frontal, mild, moderate etc. Other (explain) Clinically unable to determine (explain) Thank you, Mable Rivers, CCS, CDIS Use of terms such as suspected, likely, concern for, or probable (associated with a specific diagnosi s that is being evaluated, monitored, or treated as if it exists) are acceptable and can be coded in the inpatient se tting, when documented at the time of discharge. Please use your independent medical judgment in providing your response. THIS QUERY IS PART OF THE PERMANENT MEDICAL RECORD
[2024-03-03 12:00] VITALS: BP 108/66; PULSE 89; RESP 20; TEMP 37.4; O2SAT 95
--- NOTE | 2024-03-03 13:11 | MHC.CM.PN ---
Pt is medically cleared for discharge back to
--- NOTE | 2024-03-03 13:13 | MHC.CM.PN ---
Pt is medically cleared for discharge back to the 's home in [place] today. Pt will transport there via BLS/[facility]. Discharge summary was faxed to the [facility]. Pts Sarita was called and updated on pts discharge.
[2024-03-04 15:28] LABS: Anti Nuclear Antibody Screen NEGATIVE (NEGATIVE)
[2024-03-04 21:53] LABS: IgA 206 mg/dL (70-320); IgG 1189 mg/dL (600-1540); IgM 140 mg/dL (50-300)
== END 2024-03-03 15:23 | DRG 308 ==
LOC: HO.ED 17:26 → HO.EDOVER 21:20 → HO.IMC 03-02 01:16
PROVIDERS: Emergency Medicine; Internal Medicine Medical Oncology; Nurse Practitioner Family; Admitting Provider Internal Medicine; Emergency Provider Internal Medicine; PCP Internal Medicine; Visit Provider Physician Assistant Medical
DX: I48.92 Unspecified atrial flutter (principal); G93.41 Metabolic encephalopathy; E87.0 Hyperosmolality and hypernatremia; D69.3 Immune thrombocytopenic purpura; J44.9 Chronic obstructive pulmonary disease, unspecified; E86.0 Dehydration; I48.0 Paroxysmal atrial fibrillation; G30.9 Alzheimer's disease, unspecified; F02.80 Dementia in other diseases classified elsewhere, unspecified severity, without behavioral disturbance, psychotic disturbance, mood disturbance, and anxiety; E78.5 Hyperlipidemia, unspecified; Z87.891 Personal history of nicotine dependence; Z79.01 Long term (current) use of anticoagulants; Z79.51 Long term (current) use of inhaled steroids; Z79.899 Other long term (current) drug therapy
CPT/HCPCS: 36415; 71045; 80048; 80076; 81003; 82784; 83615; 83690; 83735; 83880; 84443; 84484; 85025; 85027; 85045; 85610; 85652; 86038; 86334; 86431; 86704; 86706; 86803; 86850; 86900; 86901; 87340; 87389; 93005; 94640; 99285; J1160

== ENCOUNTER 2024-03-01 20:53 | Outpatient (BNV) | payer MEDICARE, SELFPAY | END 2024-03-02 07:51 | PROVIDERS: Admitting Provider Internal Medicine; Emergency Provider Internal Medicine; PCP Internal Medicine; Visit Provider Internal Medicine Cardiovascular Disease | DX: R00.0 Tachycardia, unspecified (principal); R94.31 Abnormal electrocardiogram [ECG] [EKG]; I48.92 Unspecified atrial flutter | CPT/HCPCS: 93010 ==

== ENCOUNTER 2024-03-01 20:53 | Outpatient (BNV) | payer MEDICARE, SELFPAY | END 2024-03-03 09:51 | PROVIDERS: Admitting Provider Internal Medicine; Emergency Provider Internal Medicine; PCP Internal Medicine; Visit Provider Internal Medicine Cardiovascular Disease | DX: I48.91 Unspecified atrial fibrillation (principal); R94.31 Abnormal electrocardiogram [ECG] [EKG] | CPT/HCPCS: 93010 ==

== ENCOUNTER 2024-03-01 20:53 | Outpatient (BNV) | payer MEDICARE, SELFPAY | END 2024-03-01 21:03 | PROVIDERS: Admitting Provider Internal Medicine; Emergency Provider Internal Medicine; PCP Internal Medicine; Visit Provider Internal Medicine Cardiovascular Disease | DX: I48.92 Unspecified atrial flutter (principal); R94.31 Abnormal electrocardiogram [ECG] [EKG] | CPT/HCPCS: 93010 ==

== ENCOUNTER → 2024-03-01 20:53 | Outpatient (BNV) | payer MEDICARE, SELFPAY | PROVIDERS: Admitting Provider Internal Medicine; Emergency Provider Internal Medicine; PCP Internal Medicine; Visit Provider Internal Medicine Cardiovascular Disease | DX: I48.0 Paroxysmal atrial fibrillation (principal) | CPT/HCPCS: 99222; 99233 ==

== ENCOUNTER → 2024-03-01 20:53 | Outpatient (BNV) | payer MEDICARE, SELFPAY | PROVIDERS: Admitting Provider Internal Medicine; Emergency Provider Internal Medicine; PCP Internal Medicine; Visit Provider Internal Medicine | DX: D69.6 Thrombocytopenia, unspecified (principal) | CPT/HCPCS: 99223; 99232; 99239 ==

== ENCOUNTER → 2024-03-01 20:53 | Outpatient (BNV) | payer MEDICARE, SELFPAY | PROVIDERS: Admitting Provider Internal Medicine; Emergency Provider Internal Medicine; PCP Internal Medicine; Visit Provider Internal Medicine Medical Oncology | DX: D69.6 Thrombocytopenia, unspecified (principal) | CPT/HCPCS: 99222 ==

== ENCOUNTER 2024-03-07 06:52 | Outpatient (REF) | payer MEDICARE, SELFPAY ==
[2024-03-07 06:57] LABS: MANUAL DIFF FLAG NO
[2024-03-07 07:28] LABS: Basophils Percent Auto 0.2 % (0-2); Eosinophils Percent Auto 0.2 % (0-4); Hematocrit 44.2 % (42.0-52.0); Hemoglobin 15.1 g/dl (14.0-18.0); Imm Gran Pct Auto 0.6 % (0.0-0.4); Lymphocytes Absolute Auto 1.7 X10*3/uL (1.2-4.9); Lymphocytes Percent Auto 10.7 % (20-40); Mean Corpuscular HGB Conc 34.2 g/dl (31.0-36.0); Mean Corpuscular Hemoglobin 30.6 pg (27.0-33.0); Mean Corpuscular Volume 89.7 fL (80.0-98.0); Mean Platelet Volume 12.9 fL (9.4-12.4); Monocytes Absolute Auto 1.4 X10*3/uL (0.1-1.2); Monocytes Percent Auto 8.6 % (2-11); Neutrophils Absolute Auto 12.8 x10*3/uL (2.0-8.3); Neutrophils Percent Auto 79.7 % (45-73); Red Blood Count 4.93 X10*6/uL (4.60-5.80); Red Cell Distribution Width 13.6 % (11.0-16.0)
[2024-03-07 07:29] LABS: Platelet Count 91 X10*3/uL (160-400)
[2024-03-07 07:57] LABS: Anion Gap 14 (12-20); Blood Urea Nitrogen 18 mg/dL (9-16); Calcium 8.6 mg/dL (8.4-10.2); Carbon Dioxide 23 mmol/L (22-29); Chloride 108 mmol/L (96-108); Estimated Glomerular Filt Rate > 60; Glucose Random 114 mg/dL (60-115); Potassium 3.6 mmol/L (3.3-5.1); Sodium 141 mmol/L (135-145)
== END 2024-03-07 06:53 | disposition home or self-care (01) ==
LOC: HO.HSH3W 06:52
PROVIDERS: Visit Provider Internal Medicine Medical Oncology
DX: E87.0 Hyperosmolality and hypernatremia (principal); D69.6 Thrombocytopenia, unspecified
CPT/HCPCS: 36415; 80048; 85025

== ENCOUNTER 2024-03-14 06:42 | Outpatient (REF) | payer MEDICARE, SELFPAY ==
[2024-03-14 07:42] LABS: Basophils Absolute Auto 0.1 X10*3/uL (0.0-0.2); Basophils Percent Auto 0.4 % (0-2); Eosinophils Absolute Auto 0.1 X10*3/uL (0.0-0.4); Eosinophils Percent Auto 0.2 % (0-4); Hematocrit 46.6 % (42.0-52.0); Hemoglobin 15.8 g/dl (14.0-18.0); Imm Gran Abs Auto 0.41 X10*3/uL (0.00-0.03); Imm Gran Pct Auto 1.8 % (0.0-0.4); Lymphocytes Absolute Auto 1.9 X10*3/uL (1.2-4.9); Lymphocytes Percent Auto 8.4 % (20-40); MANUAL DIFF FLAG SCAN; Mean Corpuscular HGB Conc 33.9 g/dl (31.0-36.0); Mean Corpuscular Hemoglobin 30.5 pg (27.0-33.0); Mean Platelet Volume 12.9 fL (9.4-12.4); Monocytes Percent Auto 8.8 % (2-11); Neutrophils Absolute Auto 18.1 x10*3/uL (2.0-8.3); Neutrophils Percent Auto 80.4 % (45-73); Red Blood Count 5.18 X10*6/uL (4.60-5.80); Red Cell Distribution Width 14.2 % (11.0-16.0); SCAN SMEAR FLAG 1; White Blood Count 22.5 X10*3/uL (4.8-10.8)
[2024-03-14 07:44] LABS: Platelet Count 97 X10*3/uL (160-400)
[2024-03-14 08:11] LABS: SLIDE REVIEW VERIFIED
== END 2024-03-14 06:43 | disposition home or self-care (01) ==
LOC: HO.HSH3W 06:42
PROVIDERS: Visit Provider Nurse Practitioner
DX: D69.6 Thrombocytopenia, unspecified (principal)
CPT/HCPCS: 36415; 85025

== ENCOUNTER 2024-03-21 06:38 | Outpatient (REF) | payer MEDICARE, SELFPAY ==
[2024-03-21 06:43] LABS: MANUAL DIFF FLAG NO
[2024-03-21 07:30] LABS: Basophils Percent Auto 0.3 % (0-2); Eosinophils Absolute Auto 0.1 X10*3/uL (0.0-0.4); Eosinophils Percent Auto 0.4 % (0-4); Hematocrit 43.6 % (42.0-52.0); Hemoglobin 14.6 g/dl (14.0-18.0); Imm Gran Abs Auto 0.28 X10*3/uL (0.00-0.03); Imm Gran Pct Auto 1.8 % (0.0-0.4); Lymphocytes Absolute Auto 2.1 X10*3/uL (1.2-4.9); Lymphocytes Percent Auto 13.3 % (20-40); Mean Corpuscular HGB Conc 33.5 g/dl (31.0-36.0); Mean Corpuscular Hemoglobin 30.7 pg (27.0-33.0); Mean Corpuscular Volume 91.8 fL (80.0-98.0); Mean Platelet Volume 12.9 fL (9.4-12.4); Monocytes Absolute Auto 1.2 X10*3/uL (0.1-1.2); Monocytes Percent Auto 7.8 % (2-11); Neutrophils Absolute Auto 11.8 x10*3/uL (2.0-8.3); Neutrophils Percent Auto 76.4 % (45-73); Red Blood Count 4.75 X10*6/uL (4.60-5.80); Red Cell Distribution Width 14.6 % (11.0-16.0); White Blood Count 15.4 X10*3/uL (4.8-10.8)
[2024-03-21 07:31] LABS: Platelet Count 55 X10*3/uL (160-400)
== END 2024-03-21 06:39 | disposition home or self-care (01) ==
LOC: HO.HSH3W 06:38
PROVIDERS: Visit Provider Nurse Practitioner
DX: D72.829 Elevated white blood cell count, unspecified (principal)
CPT/HCPCS: 36415; 85025

== ENCOUNTER 2024-03-28 06:36 | Outpatient (REF) | payer MEDICARE, SELFPAY ==
[2024-03-28 07:47] LABS: Platelet Count 33 X10*3/uL (160-400)
== END 2024-03-28 06:37 | disposition home or self-care (01) ==
LOC: HO.HSH3W 06:36
PROVIDERS: Visit Provider Nurse Practitioner
DX: D69.6 Thrombocytopenia, unspecified (principal)
CPT/HCPCS: 36415; 85049

== ENCOUNTER 2024-04-09 18:25 | Outpatient (REF) | payer MEDICARE, SELFPAY ==
[2024-04-10 09:18] LABS: Adenovirus PCR Not Detected (Not Detect.); Bordetella parapertussis PCR Not Detected (Not Detect.); Bordetella pertussis PCR Not Detected (Not Detect.); Chlamydia pneumoniae PCR Not Detected (Not Detect.); Coronavirus 229E PCR Not Detected (Not Detect.); Coronavirus HKU1 PCR Not Detected (Not Detect.); Coronavirus NL63 PCR Not Detected (Not Detect.); Coronavirus OC43 PCR Not Detected (Not Detect.); Human metapneumovirus PCR Not Detected (Not Detect.); Influenza A PCR Not Detected (Not Detect.); Influenza B PCR Not Detected (Not Detect.); Mycoplasma pneumoniae PCR Not Detected (Not Detect.); Parainfluenza 1 PCR Not Detected (Not Detect.); Parainfluenza 2 PCR Not Detected (Not Detect.); Parainfluenza 3 PCR Not Detected (Not Detect.); Parainfluenza 4 PCR Not Detected (Not Detect.); RSV PCR Not Detected (Not Detect.); Rhino/Enterovirus PCR Not Detected (Not Detect.)
[2024-04-10 10:50] LABS: SARS-CoV-2 PCR Not Detected (Not Detect.)
== END 2024-04-09 18:26 | disposition home or self-care (01) ==
LOC: HO.HSH3W 18:25
PROVIDERS: Visit Provider Nurse Practitioner Acute Care
DX: J44.9 Chronic obstructive pulmonary disease, unspecified (principal); R05.9 Cough, unspecified
CPT/HCPCS: 87633

== ENCOUNTER 2024-04-18 07:49 | Outpatient (REF) | payer MEDICARE, SELFPAY ==
[2024-04-18 07:58] LABS: MANUAL DIFF FLAG NO
[2024-04-18 08:27] LABS: Basophils Percent Auto 0.3 % (0-2); Eosinophils Absolute Auto 0.1 X10*3/uL (0.0-0.4); Eosinophils Percent Auto 0.9 % (0-4); Hemoglobin 14.8 g/dl (14.0-18.0); Imm Gran Abs Auto 0.14 X10*3/uL (0.00-0.03); Imm Gran Pct Auto 1.5 % (0.0-0.4); Lymphocytes Absolute Auto 1.4 X10*3/uL (1.2-4.9); Lymphocytes Percent Auto 14.2 % (20-40); Mean Corpuscular HGB Conc 33.6 g/dl (31.0-36.0); Mean Corpuscular Hemoglobin 30.5 pg (27.0-33.0); Mean Corpuscular Volume 90.5 fL (80.0-98.0); Mean Platelet Volume 14.2 fL (9.4-12.4); Monocytes Percent Auto 10.6 % (2-11); Neutrophils Absolute Auto 6.9 x10*3/uL (2.0-8.3); Neutrophils Percent Auto 72.5 % (45-73); Platelet Count 31 X10*3/uL (160-400); Red Blood Count 4.86 X10*6/uL (4.60-5.80); Red Cell Distribution Width 13.8 % (11.0-16.0); White Blood Count 9.6 X10*3/uL (4.8-10.8)
== END 2024-04-18 07:50 | disposition home or self-care (01) ==
LOC: HO.HSH3W 07:49
PROVIDERS: PCP Nurse Practitioner Acute Care; Visit Provider Nurse Practitioner Acute Care
DX: D69.6 Thrombocytopenia, unspecified (principal)
CPT/HCPCS: 36415; 85025

== ENCOUNTER → 2024-05-17 10:04 | Outpatient (RCR) | payer MEDICARE, SELFPAY ==
[2021-03-19 14:54] VITALS: BP 139/80; PULSE 82; RESP 14; TEMP 36.9; O2SAT 96; BMI 31.3
--- NOTE | 2021-03-19 15:40 | P.CNHO_ITS ---
Subjective - Subjective Chief complaint: Low platelets Patient: new to practice Consult date: 03/19/21 Requesting Physician: Dr. Arreola Primary Care Provider: Breezy Arreola MD HPI - Consult Narrative Reason for consult: Thrombocytopenia Narrative: Satya Back is a 70 year old male referred for evaluation of thrombocytopenia. He has had gradual onset of thrombocytopenia since 2019. His platelet counts have ranged from 100-70 K. In the past he was mildly thrombocytopenic intermittently below 150 K but generally above 100 K. He has normal WBC and RBC counts. Apart from memory issues from Alzheimer's disease, he reports no other symptoms such as fever, chills, night sweats or unexplained weight loss. In the recent years he has been started on new medications for Alzheimer's disease. His appetite and energy level is good. He denies any bruising or bleeding problems. He denies any recent infections or use of antibiotics. No history of blood disorders in the past. He has been on warfarin for atrial fibrillation for many years. He has not been on any antiplatelet therapy. Review of Systems - Constitutional Reports as per HPI, Reports no additional constitutional complaints, Denies fatigue, Denies lack of energy, Denies malaise, Denies night sweats - Cardiovascular Denies chest pain, Denies irregular heart rhythm, Denies shortness of breath with activity - Respiratory Denies chest congestion, Denies dyspnea - Gastrointestinal Denies abdominal pain, Denies change in bowel habits - Musculoskeletal Reports no additional musculoskeletal complaints Oncology Screenings - ECOG Performance Status ECOG Performance Status: 1 [facility] Medical History: Medical History (Last Reviewed 03/19/21 @ 14:57 by Stephany James) COPD (chronic obstructive pulmonary disease) Depression Essential hypertension HLD (hyperlipidemia) Mild cognitive impairment with memory loss Paroxysmal atrial fibrillation Family History: Family History (Last Updated 08/22/20 @ 12:23 by Silvia Thomas Fady) Father CVD (cardiovascular disease) Mother Cancer Afib Surgical History: Surgical History (Last Updated 03/19/21 @ 14:58 by Stephany James) History of cardiac radiofrequency ablation History of prostate biopsy Social History: Social History (Last Updated 03/19/21 @ 15:00 by Stephany James) Alcohol History: Alcohol intake: current Alcohol History Details: Alcohol intake frequency: holiday/special occasion Alcohol type: beer Alcohol type: hard liquor Tobacco History: Patient Tobacco Use Status: Former Tobacco user Cigarette Packs Per Day: 1 Smoke Quit Date: Substance Use History: Use of substances other than those prescribed or required for medical reasons : No Home Medications and Allergies Home Medications Medication Instructions Recorded Confirmed Type fluticasone propionate 50 50 mcg INTRANASAL DAILY 10/05/20 03/19/21 History mcg/actuation nasal spray,suspension lorazepam 0.5 mg tablet 0.5 mg PO BID PRN 10/05/20 03/19/21 History memantine 5 mg tablet 5 mg PO BID 10/05/20 03/19/21 History tiotropium bromide 18 mcg capsule 1 cap INHALATION DAILY 10/05/20 03/19/21 History with inhalation device donepezil 5 mg tablet 5 mg PO DAILY 10/18/20 03/19/21 History acetaminophen [Tylenol Extra 500 mg PO Q6H PRN 03/19/21 03/19/21 History Strength] albuterol sulfate [Ventolin HFA] 2 puff INHALATION Q4-6H PRN 03/19/21 03/19/21 History bupropion HCl 150 mg PO QAM 03/19/21 03/19/21 History docusate sodium 50 mg PO DAILY 03/19/21 03/19/21 History multivitamin 1 tab PO DAILY 03/19/21 03/19/21 History sodium bicarb-sodium chloride 1 packet DAILY 03/19/21 03/19/21 History [Sinus Wash] Allergies Allergy/AdvReac Type Severity Reaction Status Date / Time dexamethasone [From Decadron] Allergy Intermediate ITCHING/DELMY Verified 03/15/21 09:37 H paroxetine [From PAXIL] Allergy Unknown UNKNOWN Verified 03/15/21 09:37 venlafaxine [From EFFEXOR] Allergy Unknown UNKNOWN Verified 03/15/21 09:37 decadron Allergy Unknown rash Uncoded 11/25/19 00:00 Physical Exam Vital signs: Vital Signs Temp 98.5 F 03/19/21 14:54 Pulse 82 03/19/21 14:54 Resp 14 03/19/21 14:54 BP 139/80 03/19/21 14:54 Pulse Ox 96 03/19/21 14:54 Intake & Output 03/18/21 03/19/21 03/19/21 18:59 06:59 18:59 Other: Weight 85.3 kg [place] Weight in Grams [id number] Weight 85.3 kg - Constitutional Present: no acute distress - Routine HEENT Exam Head: Present: normal inspection Eye: Present: EOMI - Routine Neck Exam Present: supple. Absent: lymphadenopathy - Routine Respiratory Exam Present: CTAB - Routine Cardiovascular Exam Cardiovascular: Present: S1, S2 - Routine Abdominal Exam Present: normal bowel sounds, soft. Absent: organomegaly - Routine Extremities Exam Absent: pedal edema Hem/Onc Consult Result - Labs CBC & Chem 7: 03/19/21 15:30 Assessment and Plan (1) Thrombocytopenia Status: Acute 1. This is a 70-year-old male with gradually progressive thrombocytopenia since 2019. He has no constitutional symptoms and his other cell lines are unaffected. History not suggestive of acute or chronic infections, hypersplenism or alcohol induced cytopenia. He has been started on memantine and dopenizil for Alzheimer's disease which are generally not associated with thrombocytopenia although possible. He has normal vitamin B12 and folate levels. No chronic kidney or liver disease. 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 As patient is on warfarin, he would be at increased risk of bleeding if his platelets counts go below 50 K. Hematological workup has been submitted. Abdomen ultrasound to look for hepatosplenomegaly will be ordered. Further recommendations to follow. Thank you.
[2021-03-19 15:47] LABS: Basophils Percent Auto 0.3 % (0-2); Imm Gran Abs Auto 0.03 X10*3/uL (0.00-0.03); Imm Gran Pct Auto 0.3 % (0.0-0.4); PLT CLUMP 1; SCAN SMEAR FLAG 1
[2021-03-19 15:49] LABS: Eosinophils Absolute Auto 0.1 X10*3/uL (0.0-0.4); Eosinophils Percent Auto 1.5 % (0-4); Hematocrit 45.1 % (42-52); Hemoglobin 15.2 g/dl (14.0-18.0); Immature Retic Fraction 4.8 % (2.3-13.4); Lymphocytes Absolute Auto 1.2 X10*3/uL (1.2-4.9); Lymphocytes Percent Auto 12.8 % (20-40); Mean Corpuscular HGB Conc 33.7 g/dl (31.0-36.0); Mean Corpuscular Hemoglobin 30.6 pg (27.0-33.0); Mean Corpuscular Volume 90.7 fL (80-98); Monocytes Absolute Auto 0.9 X10*3/uL (0.1-1.2); Monocytes Percent Auto 10.2 % (2-11); Neutrophils Absolute Auto 6.8 X10*3/uL (2.0-8.3); Neutrophils Percent Auto 74.9 % (45-73); Red Blood Count 4.97 X10*6/uL (4.60-5.80); Red Cell Distribution Width 13.9 % (11.0-16.0); Retic HGB Equivalent 35.1 pg (30.0-35.0); Reticulocyte Percent 1.5 % (0.5-1.8); Reticulocytes Absolute 0.075 X10*6/uL (0.026-0.095); White Blood Count 9.1 X10*3/uL (4.8-10.8)
[2021-03-19 15:50] LABS: Platelet Count 67 X10*3/uL (160-400)
[2021-03-19 16:07] LABS: Lactate Dehydrogenase 180 U/L (118-273)
--- NOTE | 2021-03-19 16:22 | MHC.HEMONCMA ---
Patient came in for a consult, states that he is doing well. Clinical summary was reviewed and updated. Patient had labs and will return in 2 weeks for a follow up.
--- NOTE | 2021-03-20 15:12 | MHC.HEMONCMA ---
Order for abdominal ultrasound placed in order repair clerk.
[2021-03-21 21:26] LABS: Prot Elec - Albumin 3.5 g/dL (3.8-4.8); Prot Elec - Alpha1 0.3 g/dL (0.2-0.3); Prot Elec - Alpha2 0.8 g/dL (0.5-0.9); Prot Elec - Beta 1 0.4 g/dL (0.4-0.6); Prot Elec - Beta 2 0.3 g/dL (0.2-0.5); Prot Elec - Gamma 1.1 g/dL (0.8-1.7); Prot Elec - Total Protein 6.5 g/dL (6.1-8.1)
[2021-03-22 18:11] LABS: IgA 196 mg/dL (70-320); IgG 1220 mg/dL (600-1540); IgM 128 mg/dL (50-300)
[2021-04-02 13:12] VITALS: BP 124/72; PULSE 80; RESP 14; TEMP 36.6; O2SAT 96; BMI 31.1
--- NOTE | 2023-02-10 09:01 | MHC.HEMONCMA ---
Received fax requesting recent office notes fro [facility], Attn: Lisa, called and gave staff air defense officer to notify Lisa we have not seen patient since 03/19/2021. She stated they dont need those office notes.
--- NOTE | 2024-03-28 09:57 | HE.ONCSEC ---
[facility] to book [facility] F/U appt with Dr Guzman after A ER consult visit but he was Dr. Sim patient in the past so I book a f/u visit w/ Dr. Sim
== END | disposition home or self-care (01) ==
LOC: HO.ONC 03-19 14:19
PROVIDERS: PCP Internal Medicine; Visit Provider Internal Medicine
DX: D69.6 Thrombocytopenia, unspecified (principal); G30.9 Alzheimer's disease, unspecified; F02.80 Dementia in other diseases classified elsewhere, unspecified severity, without behavioral disturbance, psychotic disturbance, mood disturbance, and anxiety; I48.0 Paroxysmal atrial fibrillation; Z79.01 Long term (current) use of anticoagulants
CPT/HCPCS: 36415; 82784; 83615; 84165; 85025; 85045; 86334; 99204

== ENCOUNTER 2024-06-24 06:22 | Outpatient (REF) | payer MEDICARE, SELFPAY ==
[2024-06-24 06:51] LABS: Alanine Aminotransferase 20 U/L (0-40); Albumin Level 3.1 g/dL (3.5-5.0); Alkaline Phosphatase 183 U/L (39-117); Aspartate Amino Transferase 19 U/L (5-37); Bilirubin Direct 0.2 mg/dL (0.0-0.5); Bilirubin Total 0.5 mg/dL (0.0-1.0); Total Protein 5.9 g/dL (6.5-8.0)
[2024-06-24 07:26] LABS: Folate 9.3 ng/mL (> or = 4.0); Prostate Specific Antigen 1.31 ng/mL (<0.05-4.0); Vitamin B12 745 pg/mL (200-900)
== END 2024-06-24 06:23 | disposition home or self-care (01) ==
LOC: HO.HSH3W 06:22
PROVIDERS: Visit Provider Nurse Practitioner
DX: Z12.5 Encounter for screening for malignant neoplasm of prostate (principal); C61 Malignant neoplasm of prostate; D69.6 Thrombocytopenia, unspecified
CPT/HCPCS: 36415; 80076; 82607; 82746; 84153

== ENCOUNTER 2024-09-06 06:38 | Outpatient (REF) | payer MEDICARE, SELFPAY ==
[2024-09-06 07:43] LABS: Alanine Aminotransferase 18 U/L (0-40); Alkaline Phosphatase 209 U/L (39-117); Anion Gap 12 (12-20); Aspartate Amino Transferase 24 U/L (5-37); Bilirubin Total 0.5 mg/dL (0.0-1.0); Blood Urea Nitrogen 22 mg/dL (9-16); Calcium 8.1 mg/dL (8.4-10.2); Carbon Dioxide 24 mmol/L (22-29); Chloride 110 mmol/L (96-108); Estimated Glomerular Filt Rate > 60; Glucose Random 79 mg/dL (60-115); Sodium 142 mmol/L (135-145)
== END 2024-09-06 06:39 | disposition home or self-care (01) ==
LOC: HO.HSH3W 06:38
PROVIDERS: Visit Provider Nurse Practitioner
DX: Z20.822 Contact with and (suspected) exposure to COVID-19 (principal)
CPT/HCPCS: 36415; 80053

== ENCOUNTER 2024-10-20 06:10 | Outpatient (REF) | payer MEDICARE, SELFPAY ==
--- OUTSIDE RECORDS SUMMARY | 2024-10-20 06:12 | XMS_ITS | Continuity of Care Document ---
Author Name [facility] Organization [facility] Care Team Providers Care Manager Ethics Name Role Phone [facility] Unavailable Unavailable Immunizations Combined list of available immunizations from the Department of Defense and Veterans Affairs facilities. Immunization Series Date Given Administered By Site Reaction Lot Number CVX Code Drug Manager [employer] Status Comments Source COVID-19 (PFIZER), MRNA, LNP-S, PF, 30 MCG/0.3 ML DOSE 2 2020 208 complet ed PFR; [id number]; [facility] COVID-19 (PFIZER), MRNA, LNP-S, PF, 30 MCG/0.3 ML DOSE 1 2020 208 complet ed PFR; [id number]; 1 [facility]
--- OUTSIDE RECORDS SUMMARY | 2024-10-20 06:12 | XMS_ITS ---
Author Organization [facility] Address [address] [place] [address] Care Team Providers Care Disposal Operator Name Role Phone Breezy Arreola MD Primary Care Provider Unavaila Ajith Whitley [phone] REASON FOR VISIT cx 02/25 Encounters Encounter Location Date Provider Diagnosis [address] [address] 02/24/2024 Ajith Khan Plan Of Treatment No Information Progress Notes * Satya BACKDOB:1950 ( 74 yo M)Acc No.[id number]:02/24/2024 Patient:?Satya Back :1950???Age:73 Y???Sex:Male Address:[address] [place] [address] [place] [address] * true * Date:? Generated for Praveeni indra/Maggi/eTransmitting on:?10/20/2024 06:12 AM EST
--- OUTSIDE RECORDS SUMMARY | 2024-10-20 06:12 | XMS_ITS ---
Author Organization [facility] Address [address] [place] [address] Care Team Providers Care Certified Drug Counselor Name Role Phone Breezy Arreola MD Primary Care Provider UnavailAjith Sam [phone] Encounters Encounter Location Date Provider Diagnosis [address] [address] 02/26/2024 Ajith Khan Plan Of Treatment No Information Progress Notes * Satya BACKDOB:1950 ( 74 yo M)Acc No.[id number]:02/26/2024 Progress Note Patient:Satya YOUNGBLOOD Provider:?Ajith Khan DPM :1950???Age:73 Y???Sex:Male Shayne e:02/26/2024 Address:[address] [place] [address] [place], [id number] Pcp:Breezy Arreola MD Subjective: * Chief Complaints: * ??? * Medical History:? Objective: * Vitals:? Assessment: Plan: * Treatment: * Images: * The named appointment provid er may or may not be the originator of this progress note, and it is not deemed complete until electronically signed by the appointment provider. Sign off status: Pending * Provider:?Ajith Khan DPM Date:?2023 Generated for Praveeni indra/Maggi/eTransmitting on:?10/20/2024 06:12 AM EST
--- OUTSIDE RECORDS SUMMARY | 2024-10-20 06:13 | XMS_ITS | Patient Health Record ---
[facility] Address [address] [address] Care Team Providers Care Monument Carver Name Role Phone Breezy Arreola MD Primary Care Provider Ajith Cortes Unavailable [phone] Allergies Allergen (clinical drug ingredient) Drug/Non Drug Allergy documented on EMR Reaction Allergy Type Onset Date Status Decadron hives Drug Allergy Active Reason For Referral No Information Medications Medication SIG (Take, Route, Frequency, Duration) Notes Start Date End Date Status Tylenol PRN Active Warfarin Sodium 5 MG 1 tablet Orally Onc e a day Active Ammonium Lactate 12 % 1 application to a ffected area Externally to feet Twice a day for 30 days Active Atorvastatin Calcium 10 MG 1 tablet Oral ly Once a day Active buPROPion HCl Active Fluticasone Propionate Active LORazepam Active ProAir HFA Active QUEtiapine Fumarate 50 MG 1 tablet twice a day PRN Active Sotalol HCl Active Spiriva HandiHaler PRN A ctive Immunizations Vaccine Route Administration Date Status Comme nts Influenza Unknown 06/22/2022 Administered COVID-19 Pfizer BioNTech Vaccine Unknown 06/22/2022 Administered 1st 12/03/2020 2nd 12/26/2020 3rd 11/04/2021 Social History Tobacco Use: Social History Observation Description Date Details (start date - stop date) Former Smoker NA - NA Tobacco Use/Smoking Question Answer Notes Are you a: former smoker Additional Findings: Tobacco Non-User Current no n-smoker Alcohol Screen Question Answer Notes Did you have a drink containing alcohol in the p ast year? No Points 0 Interpretation Negative Tobacco use other than smoking: Question Answer Notes Are you an other tobacco user? No Problems Problem Type SNOMED Code ICD Code Onset Dates Problem Status W/U Status Risk Notes Problem Atherosclerosis of [place] arteries of the extremities ([id number]) Atherosclerosis of [place] artery of both lower extremities, with unspecified presence of clinical manifestation (I70.203) Active confirmed Vital Signs Height 5ft 7in in 11/27/2023 Weight 177 lbs 11/27/2023 BMI 27.72 kg/m2 11/27/2023 Procedures Procedure Date Ordered Date Performed Result Body Sit e 47841-OVHB SKIN LESIONS, 2 TO 4 11/27/2023 N/A 51918-Wurdejll Plate 11/27/2023 N/A 92681-RZUKQEZ NAIL, 6 OR MORE 11/27/2023 N/A Encounters Encounter Location Date Provider Diagnosis [facility] [address] [address] 11/27/2023 Ajith Khan Atherosclerosis of [place] artery of both lower extremities, with unspecified presence of clinical manifestation I70.203 ; Onychomycosis B35.1 ; Pain of toe of right foot M79.674 ; Pain of toe of left foot M79.675 and Ingrown nail L60.0 [facility] [address] [address] 02/24/2024 Ajith Khan Assessments Encounter Date Diagnosis (ICD Code) Assessment Notes Treatment Notes Treatment Clinical Notes Section Notes 11/27/2023 Onychomycosis (ICD-10 - B35.1) 11/27/2023 Atherosclerosis of [place] artery of both lower extremities, with unspecified presence of clinical manifestation (ICD-10 - I70.203) 11/27/2023 Pain of toe of right foot (ICD-10 - M79.674) 11/27/2023 Pain of toe of left foot (ICD-10 - M79.675) 11/27/2023 Ingrown nail (ICD-10 - L60.0) Plan Of Treatment Pending Test Test Name Order Date 34769-ZHTIVMZ NAIL, 6 OR MORE 03/25/2019 23564-BQFEZJI NAIL, 6 OR MORE 06/21/2019 93603-GCYEDNW NAIL, 6 OR MORE 12/27/2019 55870-CESAGIA NAIL, 6 OR MORE 04/23/2021 39594-EZXLRCC NAIL, 6 OR MORE 01/17/2022 15761-LELESFG NAIL, 6 OR MORE 11/27/2023 66991-DGQGEGL NAIL, 6 OR MORE 08/18/2023 47314-BRUKGRD NAIL, 6 OR MORE 05/12/2023 60792-TOYDVHQ NAIL, 6 OR MORE 02/03/2023 41165-NLXIYCK NAIL, 6 OR MORE 10/24/2022 04186-BUUEAIU NAIL, 6 OR MORE 07/11/2022 34772-JVHNIJC NAIL, 6 OR MORE 04/11/2022 49874-EGZLVAY NAIL, 6 OR MORE 10/25/2021 54861-EYSYVBC NAIL, 6 OR MORE 07/26/2021 70301-PCASZLL NAIL, 6 OR MORE 01/18/2021 70142-PHSHSYZ NAIL, 6 OR MORE 10/19/2020 54991-NROSLBS NAIL, 6 OR MORE 07/17/2020 17899-YVYZHQN NAIL, 6 OR MORE 04/17/2020 46663-DAPOWDB NAIL, 6 OR MORE 09/27/2019 65299-Nyiezrlf Plate 04/17/2020 35667-Nwitnixi Plate 07/17/2020 71567-Haxsltfn Plate 10/19/2020 47504-Zkxjfwvo Plate 01/18/2021 08146-Urezsstq Plate 07/26/2021 42129-Bgrzqmex Plate 10/25/2021 79706-Tkishxov Plate 04/11/2022 50044-Wdhguckn Plate 07/11/2022 66445-Akzleuur Plate 11/27/2023 51741-Qstqtwkk Plate 02/03/2023 97747-Xdkgnyxy Plate 05/12/2023 61258-Ebnsqrmy Plate 01/17/2022 37990-Vvwxxluk Plate 04/23/2021 35509-Yhhulfcm Plate Each Additional 65904-Jcryhenn Plate Each Additional 18450-Cbldqjnz Plate Each Additional 01/2022 08904-Jkthwhsj Plate Each Additional 90145-Dreeduzc Plate Each Additional 08563-Mjhlkrzm Plate Each Additional 65787-Wfdeqbcf Plate Each Additional 08/2021 17212-Ojndrssb Plate Each Additional 06/2020 17433-Kwyftlgx Plate Each Additional 07/2020 56087-ORIG SKIN LESIONS, 2 TO 4 10/24/19 23 90536-PDQY SKIN LESIONS, 2 TO 4 11/27/19 24 66258-DBEJ SKIN LESIONS, 2 TO 4 05/12/20 23 18085-PJBY SKIN LESIONS, 2 TO 4 08/18/20 23 98954-YVSI SKIN LESIONS, 2 TO 4 02/04/20 23 Insurance Providers Payer Name Payer Address Payer Phone Subscriber Number Group Number Insured Name Patient Relationship to Insured Coverage Start Date Coverage End Date Medicare National Govt [employer] [address] [place] [address] [id number] Satya Back Self - patient is the insured [employer] [address] [place] [address] [phone] [id number] Satya Back Self - patient is the insured Medical (General) History Medical History History ICD Code Anxiety Back,Hip,and Knee pain Broken bones Crohns disease High blood pressure Lung disease Sinus conditions Measles Mumps Chicken pox CAD A Fib Alzheimers covid-19 Surgical History Surgery Date(Month/Year) cardiac ablation 2013, 2017 back surgery - lower back disc nose hemorrhoidectomy 08/20/21 Hospitalization History Reason Date(Month/Year) [facility] Natasha 05/2021 [facility] Luis Alarcon 03/2020
[2024-10-20 06:53] LABS: Magnesium 2.1 mg/dL (1.6-2.6)
[2024-10-20 07:08] LABS: Thyroid Stimulating Hormone 2.35 uIU/mL (0.32-4.0); Vitamin D 25-OH Total 32.6 ng/mL (>30)
== END 2024-10-20 06:11 | disposition home or self-care (01) ==
LOC: HO.HSH3W 06:10
PROVIDERS: Visit Provider Nurse Practitioner
DX: R53.83 Other fatigue (principal)
CPT/HCPCS: 36415; 82306; 83735; 84443

== ENCOUNTER 2024-12-13 05:49 | Outpatient (REF) | payer MEDICARE, SELFPAY ==
--- OUTSIDE RECORDS SUMMARY | 2024-12-13 05:52 | XMS_ITS ---
Author Organization [facility] Address [address] [facility] [place] [address] Care Team Providers Care Dumper Mold Cleaner Name Role Phone Breezy Arreola MD Primary Care Provider Unavaila Ajith Whitley Unavailable [phone] Allergies Allergen (clinical drug ingredient) Drug/Non Drug Allergy documented on EMR Reaction Allergy Type Onset Date Status Decadron hives Drug Allergy Active REASON FOR VISIT At Risk Footcare, Painful Nail(s) aggrevated by shoes and causing difficulty standing/walking., Ingrown Nail Medications Medication SIG (Take, Route, Frequency, Duration) Notes Start Date End Date Status Atorvastatin Calcium 10 MG 1 tablet Oral ly Once a day Active buPROPion HCl Active Fluticasone Propionate Active LORazepam Active ProAir HFA Active Tylenol PRN Active Warfarin Sodium 5 MG 1 tablet Orally Onc e a day Active Ammonium Lactate 12 % 1 application to a ffected area Externally to feet Twice a day for 30 days Active Sotalol HCl Active Spiriva HandiHaler PRN A ctive QUEtiapine Fumarate 50 MG 1 tablet twice a day PRN Active Social History Tobacco Use: Social History Observation [...] Are you an other tobacco user? No Vital Signs Height 5ft 7in in 11/27/2023 Weight 177 lbs 11/27/2023 BMI 27.72 kg/m2 11/27/2023 Procedures Procedure Date Ordered Date Performed Result Body Sit e 68979-MEKGEJY NAIL, 6 OR MORE 11/27/2023 N/A 22698-Ctxexzjk Plate 11/27/2023 N/A 11712-RFQT SKIN LESIONS, 2 TO 4 11/27/2023 N/A Encounters Encounter Location Date Provider Diagnosis [facility] [place] [address] [place] [address] 11/27/2023 Ajith Khan Atherosclerosis of platinum artery of both lower extremities, with unspecified presence of clinical manifestation I70.203 ; Onychomycosis B35.1 ; Pain of toe of right foot M79.674 ; Pain of toe of left foot M79.675 and Ingrown nail L60.0 Assessments Encounter Date Diagnosis (ICD Code) Assessment Notes Treatment Notes Treatment Clinical Notes Section Notes 11/27/2023 Atherosclerosis of platinum artery of both lower extremities, with unspecified presence of clinical manifestation (ICD-10 - I70.203) 11/27/2023 Onychomycosis (ICD-10 - B35.1) 11/27/2023 Pain of toe of right foot (ICD-10 - M79.674) 11/27/2023 Pain of toe of left foot (ICD-10 - M79.675) 11/27/2023 Ingrown nail (ICD-10 - L60.0) Plan Of Treatment Pending Test Test Name Order Date 37306-MAUTCLZ NAIL, 6 OR MORE 11/27/2023 20305-Wmsqacwz Plate 11/27/2023 48190-IRVZ SKIN LESIONS, 2 TO 4 11/27/19 24 Next Appt Details Follow Up: prn, Reason: Procedure Notes * Category Sub-Category Detail Notes Nail Avulsion Procedure A fine sterile e levator was placed between the eponychium, nail fold, and nail plate to separate the structures. A sterile nail splitter, and/or sterile 316 blade, was then used to longitudinally section the nail along its entire length through the eponychium to the area under the nail fold. The offending portion of nail was from the nail bed with a rolling action and then removed with a hemostat. No underlying bone was identified. There was minimal bleeding as hemostasis was achieved through the temporary use of either a digital tourniquet or the aforementioned local with epinephrine. A bacitracin sterile dressing was applied. Local wound aftercare instructions were discussed and dispensed. The patient was informed of both conservative and future surgical procedures to prevent recurrence. Tylenol or Motrin was recommended for pain or discomfort (84353) , CIRCULATION: Pt was advised as to the risk of delayed or nonhealing due to circulation. Pt is to call the office with any questions, concerns, or complications Anesthesia 2cc of 1 percent Lid ocaine Plain local anesthesic utilizing aseptic technique Location Lateral nail border , TA Debride Nail 6-10 Nail debridement Nail debridem ent performed extensively to reduce/remove overall nail length, girth, thickness, subungual debris, and necrotic tissue, by manual and electrical means through the use of a nail nipper and/or dremel, to more viable healthy nail plate or bed tissue 1-5. Silver nitrate used for any petechial bleeding as necessary. Patient chooses, no pharmaceutical tx (86606) Keratoma Treatment Parring or Cutting o f Benign Hyperkeratotic Lesion(s) 26250 (2-4 Lesions) - The Benign hyperkeratotic lesions, as described above were pared, and/or cut utilizing a sterile #15 blade, tissue nippers, and/or dremel, Q8 Progress Notes * Satya BACKDOB:1950 ( 73 yo M)Acc No.[id number]:11/27/2023 Progress Note Patient:Satya Kraft Provider:?Ajith Khan DPM :1950???Age:73 Y???Sex:Male Shayne e:11/27/2023 Address:[address] [place] [address] Pcp:Breezy Arreola MD Subjective: * Chief Complaints: * ???At Risk FootcarePainful N ail(s) aggrevated by shoes and causing difficulty standing/walking.Ingrown Nail * HPI: ???At Risk footcare:?Pt States Last PCP Visit:?Date?11/06/2023 * ROS:?General/Constitutional:?Nausea?denies.?Vomiting?denies.?Hunger Thirst?denies.?Loss appetite?denies.?Chills?denies.?Fatigue?denies.?Fever?denies.?Night Sweats?denies.?Unexplained weight loss?denies.?Unexplained weight gain?denies.?HEENTM:?Dentures?denies.?Dizziness?denies.?Glasses/contacts?admits.?Retinopathy?de nies.?Blurred/double vision?denies.?TMJ?denies.?Discharge/drainage?denies.?Implants?denies.?Sore throat?denies.?Dental implants?denies.?Hard of hearing ?admits.?Difficulty chewing/swallowing/speaking?denies.?Nose bleeds?admits.?Sore mouth?denies.?Respiratory:?On Oxygen?denies.?Pneumonia/pleurisy?denies.?Bronchitis?denies.?Emphysema?denies.?C oughing?admits.?Cough blood?denies.?Shortness of breath?admits.?Wheezing?denies.?Cardiovascular:?Pacemaker?denies.?MVP?denies.?WPW?denies.?CHF?denies.?Heart attack?denies.?Septal defect?denies.?Rapid beat?admits.?Chest pain ?denies.?Atrial Fib.?admits.?Murmur/Palpitations?denies.?Gastrointestinal:?Hemorrhoids?admits.?Stomach/Abdominal pain?denies.?Dark blood stool?denies.?Irritable bowel ?denies.?Constipation?denies.?Diarrhea?denies.?Hematology:?Swelling?denies.?Clots?denies.?Varicose Veins?admits.?Bruising?admits, on anticoagulants.?Bleeding problem?admits, on anticoagulants.?Genitourinary:?Blood urine?denies.?Frequent/Painfu/urination/bladder control?denies.?Kidney stones?denies.?Infection (UTI)?denies.?Nephropathy?denies.?sex trans dis (STD)?denies.?Prostate?admits.?Musculoskeletal:?Hammertoes?admits.?Bunions?denies.?Back Pain?admits.?Muscle Cramps/ Resting?denies.?Muscle cramps / walking?denies.?Generalized aches and pains?admits.?Weakness?denies.?Integ.:?Kay?denies.?Scars?admits.?Corns/calluses?admits.?Ingrown nails?admits.?Painful nails?admits.?Open Sores?denies.?Rashes?denies.?Neurologic:?Difficulty sleeping?admits.?Brain disorder?denies.?Numbness?denies.?Balance trouble?denies.?Confusion?denies.?Fainting/blackouts?denies.?Tingling?denies.?Tr emors?denies.? * Medical History:? * Surgical History:?cardiac ab lation 2013, 2017back surgery - lower back disc 1990'snose hemorrhoidectomy 08/20/21 * Hospitalization/Major Diagno stic Procedure:?[facility] Sp[facility] Ankel 03/2020[facility] [place]- [place] -covid Natasha 05/2021 * Family History:?Mother: dece ased, diagnosed with Family history of arthritis, Unspecified cerebral artery occlusion with cerebral infarction, Other malignant neoplasm of unspecified site.?Father: , diagnosed with Unspecified essential hypertension, Unspecified heart disease.? * Social History:?Tobacco Use:?Tobacco Use/Smoking?Are you a:?former smoker ?Additional Findings: Tobacco Non-User?Current non-smoker ?Tobacco use other than smoking?Are you an other tobacco user??No ???Drugs/Alcohol:?Drugs?Have you used drugs other than those for medical reasons in the past 12 months??No ?Alcohol Screen?Did you have a drink containing alcohol in the past year??No ?Points?0 ?Interpretation?Negative ???Miscellaneous:?Caffeine: yes, Decafe frequency:, 1-2 cups per day. ?Children: yes, 2. ?Exercise: yes, gardening. ?Living with: spouse. ?Marital status: . ?Occupation: retired-Computer Game Programmer. * Medications:?TakingAmmonium Lactate 12 % Cream 1 application to affected area Externally to feet Twice a dayAtorvastatin Calcium 10 MG Tablet 1 tablet Orally Once a daybuPROPion HCl Fluticasone Propionate LORazepam ProAir HFA QUEtiapine Fumarate 50 MG Tablet 1 tablet twice a day, Notes: PRNSotalol HCl Spiriva HandiHaler , Notes: PRNTylenol , Notes: PRNWarfarin Sodium 5 MG Tablet 1 tablet Orally Once a dayMedication List reviewed and reconciled with the patientTaking Ammonium Lactate 12 % Cream 1 application to affected area Externally to feet Twice a dayTaking Atorvastatin Calcium 10 MG Tablet 1 tablet Orally Once a dayTaking buPROPion HCl Taking Fluticasone Propionate Taking LORazepam Taking ProAir HFA Taking QUEtiapine Fumarate 50 MG Tablet 1 tablet twice a day, Notes: PRNTaking Sotalol HCl Taking Spiriva HandiHaler , Notes: PRNTaking Tylenol , Notes: PRNTaking Warfarin Sodium 5 MG Tablet 1 tablet Orally Once a dayMedication List reviewed and reconciled with the patient * Allergies:?Decadron: hivesye s[Allergies Verified] Objective: * Vitals:?Ht: 5ft 7in, Wt:177, BMI:27.72, Shoe size: 9.5, Ht-cm: 170.18 cm, Wt-k.29 kg. * Examination: ???Vascular: ?DP PULSES:? 0-1/4, B/L.?PT PULSES:? 0/4, B/L.?CAPILLARY FILL TIME:? delayed, all digits, B/L.?SKIN TEMPERTURE GRADIENT OF THE LOWER EXTERMITIES:? decreased, cool to cool, proximal to distal, B/L.?HAIR GROWTH/TEXTURE/ELASTICITY/TURGOR:? decreased, B/L.?PIGMENTATION:? mottled, B/L.?EDEMA:?absent, B/L.?CLAUDICATION:?denies, B/L.?REST PAIN:?denies, B/L.?Nails: ?NAILS are:?Elongated, overgrown, dystrophic, lytic, greater than 3mm thick, discolored and friable with crumbly malodorous subungual debris, with pain on palpation, TA, T1, T2, T4, T5, T7, T8, T9.?Dermatologic: ?SKIN FINDINGS:? Skin exam reveals Keratotic lesion(s) located at, Medial, IPJ, TA, Medial, IPJ, T5, SUB MTH (s), 1, B/L .?Ingrown Nail: ?INSPECTION:?Reveals nail incurvation, pain on palpation, groove hypertrophy , Lateral nail border , TA??.? Assessment: * Assessment: 1.?Onychomycosis - B35.1?2.? Atherosclerosis of platinum artery of both lower extremities, with unspecified presence of clinical manifestation - I70.203?3.?Pain of toe of right foot - M79.674?4.?Pain of toe of left foot - M79.675?5.?Ingrown nail - L60.0, Lateral nail border , TA? Plan: * Treatment: 2.?Atherosclerosis of platinum artery of both lower extremities, with unspecified presence of clinical manifestation?Procedure: 44058-CMUP SKIN LESIONS, 2 TO 4 3.?Ingrown nail?Procedure: 70596-Ayynwhoi Plate * Procedures:?Debride Nail 6-10:?Nail debridement?Nail debridement performed extensively to reduce/remove overall nail length, girth, thickness, subungual debris, and necrotic tissue, by manual and electrical means through the use of a nail nipper and/or dremel, to more viable healthy nail plate or bed tissue 1-5. Silver nitrate used for any petechial bleeding as necessary. Patient chooses, no pharmaceutical tx (51823).?Keratoma Treatment:?Parring or Cutting of Benign Hyperkeratotic Lesion(s)?36449 (2-4 Lesions) - The Benign hyperkeratotic lesions, as described above were pared, and/or cut utilizing a sterile #15 blade, tissue nippers, and/or dremel, Q8.?Nail Avulsion:?Location?Lateral nail border?,?TA.?Anesthesia?2cc of 1 percent Lidocaine Plain local anesthesic utilizing aseptic technique.?Procedure?A fine sterile elevator was placed between the eponychium, nail fold, and nail plate to separate the structures. A sterile nail splitter, and/or sterile 316 blade, was then used to longitudinally section the nail along its entire length through the eponychium to the area under the nail fold. The offending portion of nail was from the nail bed with a rolling action and then removed with a hemostat. No underlying bone was identified. There was minimal bleeding as hemostasis was achieved through the temporary use of either a digital tourniquet or the aforementioned local with epinephrine. A bacitracin sterile dressing was applied. Local wound aftercare instructions were discussed and dispensed. The patient was informed of both conservative and future surgical procedures to prevent recurrence. Tylenol or Motrin was recommended for pain or discomfort (03709) , CIRCULATION: Pt was advised as to the risk of delayed or nonhealing due to circulation. Pt is to call the office with any questions, concerns, or complications.? * Procedure Codes:?27648 DEBRI DE NAIL, 6 OR MORE, Modifiers: XS 66935 Avulsion Plate, Modifiers: XS , [id number] TRIM SKIN LESIONS, 2 TO 4, Modifiers: XS , Q8 * Follow Up:?prn * Images: * Sign off status: Completed true * Provider:?Ajith Khan DPM Date:?2023 Generated for Bienvenido burrell/Maggi/Reji on:?12/13/2024 05:52 AM EDT History and Physical Notes * HPI (History of Present Illness) Category Sub-Category Detail Notes Category Not es At Risk footcare Pt States Last PCP Visit: Date: Examination Category Sub-Category Detail Notes Category Not es Ingrown Nail INSPECTION: Reveals nail inc urvation, pain on palpation, groove hypertrophy , Lateral nail border , TA Dermatologic SKIN FINDINGS: Skin exam reveal s Keratotic lesion(s) located at, Medial, IPJ, TA, Medial, IPJ, T5, SUB MTH (s), 1, B/L Vascular DP PULSES (B): 0-1/4, B/L PT PULSES (B): 0/4, B/L CAPILLARY FILL TIME: delayed, all digits , B/L TEMPERTURE GRADIENT (C): decreased, cool to cool, proximal to distal, B/L TROPHIC CONDITION-TEXTURE/ELASTICITY/TURGOR/HAIR GROWTH (B): decreased, B/L EDEMA (C): absent, B/L CLAUDICATION (C): denies, B/L REST PAIN: denies, B/L PIGMENTATION: mottled, B/L Nails NAILS are: Elongated, overg rown, dystrophic, lytic, greater than 3mm thick, discolored and friable with crumbly malodorous subungual debris, with pain on palpation, TA, T1, T2, T4, T5, T7, T8, T9
--- OUTSIDE RECORDS SUMMARY | 2024-12-13 05:52 | XMS_ITS | Continuity of Care Document ---
Author Name [facility] Organization [facility] Care Team Providers Care Theater Company Producer Name Role Phone [facility] Unavailable Unavailable Immunizations Combined list of available immunizations from the Department of Defense and Veterans Affairs facilities. Immunization Series Date Given Administered By Site Reaction Lot Number CVX Code Drug Senior Audit Manager Status Comments Source COVID-19 (PFIZER), MRNA, LNP-S, PF, 30 MCG/0.3 ML DOSE 2 2020 208 complet ed PFR; [id number]; [facility] COVID-19 (PFIZER), MRNA, LNP-S, PF, 30 MCG/0.3 ML DOSE 1 2020 208 complet ed PFR; [id number]; 1 [facility]
--- OUTSIDE RECORDS SUMMARY | 2024-12-13 05:52 | XMS_ITS ---
Author Organization [facility] Address [address] [place] [address] Care Team Providers Care Grocery Checker Name Role Phone Breezy Arreola MD Primary Care Provider UnavailAjith Sam [phone] Encounters Encounter Location Date Provider Diagnosis [address] [address] 02/26/2024 Ajith Khan Plan Of Treatment No Information Progress Notes * Satya BACKDOB:1950 ( 74 yo M)Acc No.[id number]:02/26/2024 Progress Note Patient:Satya YOUNGBLOOD Provider:?Ajith Khan DPM :1950???Age:73 Y???Sex:Male Shayne e:02/26/2024 Address:[address] [place] [address] [place], [id number] Pcp:Breezy Arreola MD Subjective: * Chief Complaints: [...] Khan DPM Date:?2023 Generated for Praveeni indra/Maggi/eTransmitting on:?12/13/2024 05:52 AM EDT
--- OUTSIDE RECORDS SUMMARY | 2024-12-13 05:53 | XMS_ITS | Patient Health Record ---
Author Organization [facility] Address [address] [place] [address] Care Team Providers Care Professor Of Fine Art Name Role Phone Breezy Arreola MD Primary Care Provider Ajith Cortes Unavailable [phone] Allergies Allergen (clinical drug ingredient) Drug/Non Drug [...] Vaccine Route Administration Date Status Comme nts COVID-19 Pfizer BioNTech Vaccine Unknown 06/22/2022 Administered 1st 12/03/2020 2nd 12/26/2020 3rd 11/04/2021 Influenza Unknown 06/22/2022 Administered Social History Tobacco Use: Social History Observation [...] W/U Status Risk Notes Problem Atherosclerosis of beaver arteries of the extremities ([id number]) Atherosclerosis of beaver artery of both lower extremities, with unspecified presence of clinical manifestation (I70.203) Active confirmed Encounters Encounter Location Date Provider Diagnosis [facility] [place] [address] [place] [address] 02/24/2024 Ajith Khan Plan Of Treatment Pending Test Test Name Order Date 25250-KEDJLOT NAIL, 6 OR MORE 03/25/2019 70356-HKRABYQ NAIL, 6 OR MORE 06/21/2019 61249-ELAWIOH NAIL, 6 OR MORE 09/27/2019 03626-YJGLLHE NAIL, 6 OR MORE 12/27/2019 13158-GHMSLUP NAIL, 6 OR MORE 04/17/2020 48189-RPFVVOA NAIL, 6 OR MORE 07/17/2020 23177-OWCVHZP NAIL, 6 OR MORE 10/19/2020 98864-ZUFPYEE NAIL, 6 OR MORE 01/18/2021 60410-LSAWSUZ NAIL, 6 OR MORE 04/23/2021 37885-PVMVNPC NAIL, 6 OR MORE 07/26/2021 72178-UZFXSBJ NAIL, 6 OR MORE 10/25/2021 19138-DRDAQUR NAIL, 6 OR MORE 01/17/2022 64292-QZMDUGB NAIL, 6 OR MORE 04/11/2022 75510-LYVBSHA NAIL, 6 OR MORE 07/11/2022 64137-PIOGRMZ NAIL, 6 OR MORE 10/24/2022 73345-EIXLBAP NAIL, 6 OR MORE 02/03/2023 48704-WFILBHF NAIL, 6 OR MORE 05/12/2023 06805-HWAKYXL NAIL, 6 OR MORE 08/18/2023 60979-MYTOOTN NAIL, 6 OR MORE 11/27/2023 75754-Rhfupfox Plate 05/12/2023 06867-Bjieniwy Plate 07/11/2022 67347-Dccrjyzq Plate 04/11/2022 09827-Nvbgshdr Plate 01/17/2022 20612-Afahpanu Plate 10/25/2021 45038-Ngshleaw Plate 07/26/2021 14670-Jgpyuwir Plate 04/23/2021 32153-Klwwxcxf Plate 01/18/2021 10713-Mwzdpymn Plate 10/19/2020 85336-Gumkbqth Plate 07/17/2020 16961-Tvqgodxr Plate 04/17/2020 39700-Gutafhtg Plate 02/03/2023 78676-Phuoehwo Plate 11/27/2023 63752-Edvzybfh Plate Each Additional 07/2020 63308-Vtjbwmka Plate Each Additional 06/2020 83249-Hunouacr Plate Each Additional 08/2021 08456-Egtlemal Plate Each Additional 10164-Qtgssgol Plate Each Additional 78312-Djfipfmh Plate Each Additional 92262-Leatrxbo Plate Each Additional 82206-Srrmjcng Plate Each Additional 90925-Gobdfwhd Plate Each Additional 01/2022 14033-HJAK SKIN LESIONS, 2 TO 4 10/24/19 23 67358-NIBQ SKIN LESIONS, 2 TO 4 05/12/20 23 57208-KNZT SKIN LESIONS, 2 TO 4 02/04/20 23 71235-RLJT SKIN LESIONS, 2 TO 4 11/27/19 24 04755-UYEB SKIN LESIONS, 2 TO 4 08/18/20 23 Insurance Providers Payer Name Payer Address Payer Phone Subscriber Number Group Number Insured Name Patient Relationship to Insured Coverage Start Date Coverage End Date Medicare National Govt [facility] [address] [place] [address] [id number] Satya Back Self - patient is the insured Med [employer] Shield [address] [place] [address] [phone] [id number] Satya Back Self - patient is the insured Medical (General) History Medical History History ICD Code Anxiety Back,Hip,and Knee pain Broken bones Crohns disease High blood pressure Lung disease Sinus conditions Measles Mumps Chicken pox CAD A Fib Alzheimers covid-19 Surgical History Surgery Date(Month/Year) cardiac ablation 2013, 2017 back surgery - lower back disc 1989' nose hemorrhoidectomy 08/20/21 Hospitalization History Reason Date(Month/Year[place] [facility] [place] Natasha 05/[place] [facility] Sprained Ankel 03/2020
--- OUTSIDE RECORDS SUMMARY | 2024-12-13 05:53 | XMS_ITS ---
Author Organization [facility] Address [address] [facility] [place] [address] Care Team Providers Care Tutoring Manager Name Role Phone Breezy Arreola MD Primary Care Provider Unavaila Ajith Whitley [phone] REASON FOR VISIT cx 02/25 Encounters Encounter Location Date Provider Diagnosis [address] [address] 02/24/2024 Ajith Khan Plan Of Treatment No Information Progress Notes * Satya BACKDOB:1950 ( 74 yo M)Acc No.[id number]:02/24/2024 Patient:?Satya Back :1950???Age:73 Y???Sex:Male Address:[address] [place] [address] [place] [address] * true * Date:? Generated for Praveeni indra/Maggi/eTransmitting on:?12/13/2024 05:52 AM EDT
[2024-12-13 06:11] LABS: Anion Gap 14 (12-20); Blood Urea Nitrogen 19 mg/dL (9-16); Calcium 8.2 mg/dL (8.4-10.2); Carbon Dioxide 23 mmol/L (22-29); Chloride 108 mmol/L (96-108); Estimated Glomerular Filt Rate > 60; Glucose Random 87 mg/dL (60-115); Potassium 3.6 mmol/L (3.3-5.1); Sodium 141 mmol/L (135-145)
[2024-12-13 06:19] LABS: Basophils Percent Auto 0.3 % (0-2); Hemoglobin 15.4 g/dl (14.0-18.0); Mean Corpuscular HGB Conc 33.8 g/dl (31.0-36.0); Mean Corpuscular Hemoglobin 29.4 pg (27.0-33.0); Red Blood Count 5.24 X10*6/uL (4.60-5.80); Red Cell Distribution Width 14.9 % (11.0-16.0); SCAN SMEAR FLAG 1
[2024-12-13 06:21] LABS: Eosinophils Absolute Auto 0.2 X10*3/uL (0.0-0.4); Eosinophils Percent Auto 4.1 % (0-4); Hematocrit 45.6 % (42.0-52.0); Imm Gran Abs Auto 0.02 X10*3/uL (0.00-0.03); Imm Gran Pct Auto 0.3 % (0.0-0.4); Lymphocytes Absolute Auto 1.9 X10*3/uL (1.2-4.9); Lymphocytes Percent Auto 32.4 % (20-40); MANUAL DIFF FLAG SCAN; Monocytes Absolute Auto 0.9 X10*3/uL (0.1-1.2); Monocytes Percent Auto 15.2 % (2-11); Neutrophils Absolute Auto 2.8 x10*3/uL (2.0-8.3); Neutrophils Percent Auto 47.7 % (45-73); White Blood Count 5.8 X10*3/uL (4.8-10.8)
[2024-12-13 06:22] LABS: PLT ABN DIST 1; Platelet Count 44 X10*3/uL (160-400)
[2024-12-13 06:44] LABS: SLIDE REVIEW VERIFIED
== END 2024-12-13 05:50 | disposition home or self-care (01) ==
LOC: HO.HSH3W 05:49
PROVIDERS: Visit Provider Nurse Practitioner
DX: R05.9 Cough, unspecified (principal)
CPT/HCPCS: 36415; 80048; 85025